=== PATIENT | female | born 1965 | race Hispanic/Latino ===

== ENCOUNTER 2018-03-08 19:15 | Emergency (ER) | payer OTHER, BC ==
--- OUTSIDE RECORDS SUMMARY | 2018-03-08 19:18 | XMS REPORT | Clinical Summary ---
:1965 Author Organization [facility] Address [address] [place] [address] Care Team Providers Name Role Phone Yordan Velasco MD Primary Care Provider Unavailable Allergies Active Allergy Reactions Severity Noted Date Comments Sulfamethoxazole-Trimet Rash Low 01/05/2016 hoprim Shellfish Derived Other (See Comments) 01/05/2016 Noted on allergy testing Current Medications Prescription Sig. Disp. Refills Start Date End Date Status glutamine powder powder Natural powder Active added to water METHYLSULFONYLMETHANE (MSM Take 1 Dose by Active ORAL) mouth daily. Powder- 1 dose daily MULTIVITAMIN ORAL Take 1 Dose by Active mouth daily. 2 tablespoons daily liquid levothyroxine (SYNTHROID, Take 25 mcg by Active LEVOTHROID) 25 MCG tablet mouth every morning. UNABLE TO FIND Take 4 capsules Active by mouth 2 (two) times a day. Tumeric CYANOCOBALAMIN, VITAMIN Inject 1 Dose as Active B-12, (VITAMIN B-12 INJ) directed once a week. B INFANTIS/B ANI/B KOFI/B Take 1 Dose by Active BIFID (PROBIOTIC 4X ORAL) mouth 2 (two) times a day as needed. traMADol (ULTRAM) 50 mg Take 50 mg by Active tablet mouth as needed for moderate pain. Never started taking medication conjugated estrogens Insert 0.5 g into Active (PREMARIN) vaginal cream the vagina daily. Cream application acetaminophen (TYLENOL) 325 Take 325 mg by Active MG tablet mouth every 6 (six) hours as needed for fever. 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 Social History Tobacco Use Types Packs/Day Years Used Date Never Smoker Smokeless Tobacco: Never Used Tobacco Cessation: Counseling Given: No Alcohol Use Drinks/Week oz/Week Comments Yes occasional social Sex Assigned at Date Recorded Not on file Last Filed Vital Signs Not on file Plan of Treatment Health Maintenance Due Date Last Done Comments CERVICAL CANCER SCREENING 1985 BREAST CANCER SCREENING 2014 COLON CANCER SCREENING 2014 SHINGRIX VACCINE (#1) 2014 INFLUENZA VACCINE 01/07/2018 Implants Implanted Type Area Water Taxi Ferry Operator Device Expiration Model / Identifier Date Serial / Lot Matrix Xenform 8x12cm Soft-Tissue Rpr - [id number] Surgical N/A: BSC UROLOGY 05/08/2018 [id number] / Implanted: 01/26/2016 (Quantity not on file) Bone Cement Vagina [id number] / [id number] Results Not on fileafter 03/07/2017 Insurance Payer Benefit Plan / Group Subscriber ID Type Phone Address JOSE G ARAIZA OPEN ACCESS/NETWORK xxxxxxxxxxx HMO [phone] [id number]
[2018-03-08] MEDS ORDERED: METOCLOPRAMIDE 10 MG/2mL INJ ONE (21:03)
[2018-03-08] MEDS ORDERED: FENTANYL CITR 100 MCG/2 ML ONE (21:03)
[2018-03-08] MEDS ORDERED: NA CHLORIDE 0.9% 1,000 ML ONE (21:04)
[2018-03-08] MEDS ORDERED: KETOROLAC 30 MG/ML INJ ONE (21:04)
--- NOTE | 2018-03-08 21:58 | ER ---
Nurse's Notes [facility] Name: Xiomara Russ Age: 52 yrs Sex: Female : 1965 Arrival Date: 03/08/2018 Time: 19:16 Bed 15 Private MD: Yordan Velasco Diagnosis: Headache;Vomiting Presentation: 03/08 19:21 Presenting complaint: Patient states: headache, nausea and vomiting. pt with hx ak1 migraines with Imitrex and Topamax X6 years but stopped due to no relief from meds. Transition of care: patient was not received from another setting of care. Onset of symptoms was March 07, 2018. Risk Assessment: Do you want to hurt yourself or someone else? Patient reports no desire to harm self or others. Initial Sepsis Screen: Does the patient meet any 2 criteria? No. Patient's initial sepsis screen is negative. Does the patient have a suspected source of infection? No. Patient's initial sepsis screen is negative. Care prior to arrival: None. 19:21 Method Of Arrival: Ambulatory ak1 19:21 Acuity: EFFIE 3 ak1 Triage Assessment: 19:23 Headache History: The patient has had previous headaches and this one is similar to ak1 previous episodes. General: Appears in no apparent distress. Behavior is calm, cooperative. Pain: Complains of pain in headache Pain currently is 8 out of 10 on a pain scale. Pain began 1 day ago. Also complains of nausea. EENT: No signs and/or symptoms were reported regarding the EENT system. Neuro: Level of Consciousness is awake, alert, obeys commands, Oriented to person, place, time, situation, Compliance Nurse are equal bilaterally Moves all extremities. Gait is steady, Speech is normal, Facial symmetry appears normal. Cardiovascular: No deficits noted. Respiratory: No deficits noted. GI: Reports nausea, vomiting. : No signs and/or symptoms were reported regarding the genitourinary system. Derm: No signs and/or symptoms reported regarding the dermatologic system. Musculoskeletal: No signs and/or symptoms reported regarding the musculoskeletal system. 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 - Social history:: Smoking status: Patient/guardian denies using tobacco. - Ebola Screening: : No symptoms or risks identified at this time. - Family history:: not pertinent. Screenin:24 Abuse screen: Denies threats or abuse. Denies injuries from another. Nutritional ak1 screening: No deficits noted. Tuberculosis screening: No symptoms or risk factors identified. Fall Risk None identified. Assessment: 19:45 General: Appears in no apparent distress. comfortable, Behavior is calm, cooperative, jb4 appropriate for age. Pain: Complains of pain in right eye, left eye, right bahai, left bahai, left occipital area and right occipital area Pain does not radiate. Pain currently is 7 out of 10 on a pain scale. at worst was 10 out of 10 on a pain scale. Quality of pain is described as dull, throbbing, Pain began 1 day ago. Is intermittent. Neuro: Level of Consciousness is awake, alert, obeys commands, Oriented to person, place, time, situation. Cardiovascular: Denies chest pain, Patient's skin is warm and dry. Respiratory: Airway is patent Respiratory effort is even, unlabored, Respiratory pattern is regular, symmetrical, Denies shortness of breath. GI: Reports nausea, vomiting. : No signs and/or symptoms were reported regarding the genitourinary system. EENT: No signs and/or symptoms were reported regarding the EENT system. Derm: Skin is intact, Skin is pink, warm \T\ dry. Musculoskeletal: Circulation, motion, and sensation intact. 20:45 Reassessment: Patient appears in no apparent distress at this time. Patient and/or jb4 family updated on plan of care and expected duration. Pain level reassessed. Patient is alert, oriented x 3, equal unlabored respirations, skin warm/dry/pink. 21:45 Reassessment: Patient appears in no apparent distress at this time. Patient and/or jb4 family updated on plan of care and expected duration. Pain level reassessed. Patient is alert, oriented x 3, equal unlabored respirations, skin warm/dry/pink. 22:15 Reassessment: waiting for labs to D/C. jb4 22:30 Reassessment: Patient appears in no apparent distress at this time. Patient and/or jb4 family updated on plan of care and expected duration. Pain level reassessed. Patient is alert, oriented x 3, equal unlabored respirations, skin warm/dry/pink. Pt reports feeling better. Patient states symptoms have improved. Vital Signs: 19:21 BP 110 / 62; Pulse 81; Resp 16; Temp 98.2(O); Pulse Ox 98% on R/A; Weight 58.97 kg (R); ak1 Height 5 ft. 2 in. (157.48 cm) (R); Pain 8/10; 20:30 BP 97 / 58; Pulse 74; Resp 18; Pulse Ox 100% on R/A; Pain 8/10; jb4 21:30 BP 95 / 46; Pulse 63; Resp 18; Pulse Ox 98% on R/A; jb4 22:30 BP 102 / 45; Pulse 67; Resp 18; Pulse Ox 100% ; jb4 19:21 Body Mass Index 23.78 (58.97 kg, 157.48 cm) ak1 ED Course: 19:16 Patient arrived in ED. ds1 19:16 Yordan Velasco is Private Physician. ds1 19:22 Triage completed. ak1 19:23 Arm band placed on Patient placed in an exam room, on a stretcher, Patient notified of ak1 wait time. 19:40 Alcides Mojica MD is Attending Physician. [facility] 19:40 Vic Hoskins, RANJANA is Primary Nurse. jb4 19:45 Patient has correct armband on for positive identification. Bed in low position. Call jb4 light in reach. Side rails up X 1. Pulse ox on. NIBP on. 21:57 Jarret Ureña MD is Referral Physician. [facility] 22:47 No provider procedures requiring assistance completed. IV discontinued, intact. jb4 Administered Medications: 20:55 Drug: fentaNYL (PF) 25 mcg Route: IVP; Site: right antecubital; jb4 22:38 Follow up: Response: No adverse reaction; Pain is decreased jb4 20:56 Drug: NS 0.9% 1000 ml Route: IV; Rate: 1 bolus; Site: right antecubital; jb4 22:00 Follow up: Response: No adverse reaction; IV Status: Completed infusion jb4 20:56 Drug: Reglan 10 mg Route: IVP; Site: right antecubital; jb4 22:38 Follow up: Response: No adverse reaction; Pain is decreased jb4 20:57 Drug: TORadol 30 mg Route: IVP; Site: right antecubital; jb4 22:39 Follow up: Response: No adverse reaction; Pain is decreased jb4 Outcome: 21:57 Discharge ordered by . parth 22:47 Discharged to home ambulatory. jb4 22:47 Condition: stable 22:47 Discharge instructions given to patient, family, Instructed on discharge instructions, follow up and referral plans. medication usage, Demonstrated understanding of instructions, follow-up care, medications, Prescriptions given X 2. 22:48 Patient left the ED. jb4 Signatures: Alcides Mojica MD MD cha Sanford, Demi ds1 Mirtha Silverman, RN RN ak1 Vic Hoskins, RN RN jb4
--- NOTE | 2018-03-08 21:58 | EDPHYS ---
Physician Documentation [facility] Name: Xiomara Russ Age: 52 yrs Sex: Female : 1965 Arrival Date: 03/08/2018 Time: 19:16 Bed 15 Private MD: Yordan Velasco ED Physician Alcides Mojica HPI: 03/08 20:32 This 52 yrs old Female presents to ER via Ambulatory with complaints of parth Headache, Vomiting. 20:32 The patient complains of pain to the forehead, left temporal area, right temporal area parth and right side of forehead. The patient describes the headache as pounding, a pressure. Onset: The symptoms/episode began/occurred 2 day(s) ago. Associated signs and symptoms: The patient has no apparent associated signs or symptoms. Severity of symptoms: At its worst the pain was mild, moderate, in the emergency department the pain is unchanged. Headache History: The patient has had previous headaches and this one is similar to previous episodes. The symptoms are alleviated by nothing. the symptoms are aggravated by lights, movement, noise. The patient has not experienced similar symptoms in the past. 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 - Social history:: Smoking status: Patient/guardian denies using tobacco. - Ebola Screening: : No symptoms or risks identified at this time. - Family history:: not pertinent. ROS: 20:32 Constitutional: Negative for fever, chills, and weight loss, Eyes: Negative for injury, parth pain, redness, and discharge, ENT: Negative for injury, pain, and discharge, Neck: Negative for injury, pain, and swelling, Cardiovascular: Negative for chest pain, palpitations, and edema, Respiratory: Negative for shortness of breath, cough, wheezing, and pleuritic chest pain, Abdomen/GI: Negative for abdominal pain, nausea, vomiting, diarrhea, and constipation, Back: Negative for injury and pain, : Negative for injury, bleeding, discharge, and swelling, MS/Extremity: Negative for injury and deformity, Skin: Negative for injury, rash, and discoloration, Psych: Negative for depression, anxiety, suicide ideation, homicidal ideation, and hallucinations, Allergy/Immunology: Negative for hives, rash, and allergies, Endocrine: Negative for neck swelling, polydipsia, polyuria, polyphagia, and marked weight changes, Hematologic/Lymphatic: Negative for swollen nodes, abnormal bleeding, and unusual bruising. 20:32 Neuro: Positive for 20:32 Abdomen/GI: Positive for nausea and vomiting. parth 20:32 Neuro: Positive for headache. Exam: 20:32 Constitutional: This is a well developed, well nourished patient who is awake, alert, parth and in no acute distress. Head/Face: Normocephalic, atraumatic. Eyes: Pupils equal round and reactive to light, extra-ocular motions intact. Lids and lashes normal. Conjunctiva and sclera are non-icteric and not injected. Cornea within normal limits. Periorbital areas with no swelling, redness, or edema. ENT: Nares patent. No nasal discharge, no septal abnormalities noted. Tympanic membranes are normal and external auditory canals are clear. Oropharynx with no redness, swelling, or masses, exudates, or evidence of obstruction, uvula midline. Mucous membranes moist. Neck: Trachea midline, no thyromegaly or masses palpated, and no cervical lymphadenopathy. Supple, full range of motion without nuchal rigidity, or vertebral point tenderness. No Meningismus. Chest/axilla: Normal chest wall appearance and motion. Nontender with no deformity. No lesions are appreciated. Cardiovascular: Regular rate and rhythm with a normal S1 and S2. No gallops, murmurs, or rubs. Normal PMI, no JVD. No pulse deficits. Respiratory: Lungs have equal breath sounds bilaterally, clear to auscultation and percussion. No rales, rhonchi or wheezes noted. No increased work of breathing, no retractions or nasal flaring. Abdomen/GI: Soft, non-tender, with normal bowel sounds. No distension or tympany. No guarding or rebound. No evidence of tenderness throughout. Back: No spinal tenderness. No costovertebral tenderness. Full range of motion. Female : Normal external genitalia. Skin: Warm, dry with normal turgor. Normal color with no rashes, no lesions, and no evidence of cellulitis. MS/ Extremity: Pulses equal, no cyanosis. Neurovascular intact. Full, normal range of motion. Neuro: Awake and alert, GCS 15, oriented to person, place, time, and situation. Cranial nerves II-XII grossly intact. Motor strength 5/5 in all extremities. Sensory grossly intact. Cerebellar exam normal. Normal gait. Psych: Awake, alert, with orientation to person, place and time. Behavior, mood, and affect are within normal limits. 20:32 Neck: ROM/movement: is normal, no acute changes, Meningeal signs: are not present, Kernig's sign is negative, Brudzinski's sign is negative. Vital Signs: 19:21 BP 110 / 62; Pulse 81; Resp 16; Temp 98.2(O); Pulse Ox 98% on R/A; Weight 58.97 kg (R); ak1 Height 5 ft. 2 in. (157.48 cm) (R); Pain 8/10; 20:30 BP 97 / 58; Pulse 74; Resp 18; Pulse Ox 100% on R/A; Pain 8/10; jb4 21:30 BP 95 / 46; Pulse 63; Resp 18; Pulse Ox 98% on R/A; jb4 22:30 BP 102 / 45; Pulse 67; Resp 18; Pulse Ox 100% ; jb4 19:21 Body Mass Index 23.78 (58.97 kg, 157.48 cm) ak1 MDM: 19:40 Patient medically screened. [facility] 20:34 Data reviewed: vital signs, nurses notes, lab test result(s), EKG, radiologic studies, [facility] CT scan, plain films. 03/08 20:32 Order name: CBC with Diff [facility] 03/08 20:32 Order name: Comprehensive Metabolic Panel; Complete Time: 22:23 [facility] 03/08 21:43 Order name: Urine Dipstick--Ancillary (enter results); Complete Time: 22:23 ms 03/08 22:19 Order name: CBC Smear Scan [facility] 03/08 20:32 Order name: Urine Dipstick-Ancillary (obtain specimen); Complete Time: 21:12 [facility] Administered Medications: 20:55 Drug: fentaNYL (PF) 25 mcg Route: IVP; Site: right antecubital; jb4 22:38 Follow up: Response: No adverse reaction; Pain is decreased jb4 20:56 Drug: NS 0.9% 1000 ml Route: IV; Rate: 1 bolus; Site: right antecubital; jb4 22:00 Follow up: Response: No adverse reaction; IV Status: Completed infusion jb4 20:56 Drug: Reglan 10 mg Route: IVP; Site: right antecubital; jb4 22:38 Follow up: Response: No adverse reaction; Pain is decreased jb4 20:57 Drug: TORadol 30 mg Route: IVP; Site: right antecubital; jb4 22:39 Follow up: Response: No adverse reaction; Pain is decreased jb4 Disposition: 03/08/18 21:57 Discharged to Home. Impression: Headache, Vomiting. - Condition is Stable. - Discharge Instructions: General Headache Without Cause, Migraine Headache, Nausea and Vomiting, Adult, Nausea and Vomiting, Adult, [id number], Migraine Headache, [id number]-dc-[id number], General Headache Without Cause, Dnnw-pr-[id number]. - Prescriptions for Fioricet with Codeine 50- 325-40-30 mg Oral capsule - take 1 capsule by ORAL route every 4 hours as needed not to exceed 6 capsules per 24hrs; 26 capsule. Zofran 4 mg Oral Tablet - take 1 tablet by ORAL route every 12 hours As needed; 20 tablet. - Medication Reconciliation Form, Thank You Letter, Antibiotic Education, Prescription Opioid Use form. - Follow up: Private Physician; When: 2 - 3 days; Reason: Recheck today's complaints, Continuance of care, Re-evaluation by your physician. Follow up: Jarret Ureña; When: 2 - 3 days; Reason: Recheck today's complaints, Re-evaluation by your physician. - Problem is new. - Symptoms have improved. Signatures: Dispatcher [employer] EDMS Alcides Mojica MD MD cha Krenek, Amber RN RN ak1 Vic Hoskins, RN RN jb4 Corrections: (The following items were deleted from the chart) 22:48 21:57 03/08/2018 21:57 Discharged to Home. Impression: Headache; Vomiting. Condition is jb4 Stable. Discharge Instructions: General Headache Without Cause, Migraine Headache, Nausea and Vomiting, Adult, Nausea and Vomiting, Adult, [id number], Migraine Headache, Xkom-pm-Auoc, General Headache Without Cause, Baze-nh-Zpbk. Prescriptions for Fioricet with Codeine 95-501-34-30 mg Oral capsule - take 1 capsule by ORAL route every 4 hours as needed not to exceed 6 capsules per 24hrs; 26 capsule, Zofran 4 mg Oral Tablet - take 1 tablet by ORAL route every 12 hours As needed; 20 tablet. and Forms are Medication Reconciliation Form, Thank You Letter, Antibiotic Education, Prescription Opioid Use. Follow up: Private Physician; When: 2 - 3 days; Reason: Recheck today's complaints, Continuance of care, Re-evaluation by your physician. Follow up: Jarret Ureña; When: 2 - 3 days; Reason: Recheck today's complaints, Re-evaluation by your physician. Problem is new. Symptoms have improved. parth
[2018-03-08 22:11] LABS: Urine Blood 2+ (NEG); Urine Glucose NEGATIVE (NEG); Urine Protein NEGATIVE (NEG); Urine Specific Gravity 1.015 (1.005-1.030); Urine pH 6.5 (5.0-7.0)
[2018-03-08 22:14] LABS: Absolute Monocytes 0.4 K/uL (0.1-1.3); Absolute Neutrophil 1.4 K/uL (1.8-8.0); Basophils % 0.6 % (0-1.3); Eosinophils % 2.1 % (0-4.4); Hematocrit 32.6 % (36.0-45.0); Lymphocytes % 35.4 % (15.3-44.8); MCH 31.9 pg (27.0-35.0); MCV 89.7 fL (80-100); MPV 8.2 fL (7.6-11.3); Monocytes % 15.1 % (3.3-12.3); RBC Red Blood Cell Count 3.64 M/uL (3.86-4.86)
[2018-03-08 22:23] LABS: Albumin 3.3 g/dL (3.4-5.0); Bilirubin Total 0.4 mg/dL (0.2-1.0); Potassium 3.6 mmol/L (3.5-5.1); Protein, Total 6.7 g/dL (6.4-8.2)
[2018-03-08 22:59] VITALS: TEMP 98.2
[2018-03-08 23:04] VITALS: BP 102/45; O2SAT 100
[2018-03-08 23:13] LABS: Blood Morphology Comment NOT SEEN (NOT SEEN); Platelet Estimate ADEQ; Urine White Blood Cell Casts OK
== END 2018-03-08 22:48 | disposition home or self-care (01) ==
LOC: ER 19:15
DX: R11.10 Vomiting, unspecified (principal); Z88.1 Allergy status to other antibiotic agents
CPT/HCPCS: 36415; 80053; 81003; 85025; 96361; 96374; 96375; 99283; J2765; J3010; J7030

== ENCOUNTER 2018-07-16 14:35 | Emergency (ER) | payer BC, OTHER ==
--- OUTSIDE RECORDS SUMMARY | 2018-07-16 14:38 | XMS REPORT | Clinical Summary ---
:1965 Author Organization [facility] Address [address] [place] [address] Care Team Providers Name Role Phone Yordan Velasco MD Primary Care Provider Unavailable Allergies Active Allergy Reactions Severity Noted Date Comments Sulfamethoxazole-Trimet Rash Low 01/05/2016 hoprim Shellfish Derived Other (See Comments) 01/05/2016 Noted on allergy testing Medications Medication Sig Dispensed Refills Start Date End Date Status glutamine powder powder Natural powder 0 Active added to water METHYLSULFONYLMETHANE (MSM Take 1 Dose by 0 Active ORAL) mouth daily. Powder- 1 dose daily MULTIVITAMIN ORAL Take 1 Dose by 0 Active mouth daily. 2 tablespoons daily liquid levothyroxine (SYNTHROID, Take 25 mcg by 0 Active LEVOTHROID) 25 MCG tablet mouth every morning. UNABLE TO FIND Take 4 capsules 0 Active by mouth 2 (two) times a day. Tumeric CYANOCOBALAMIN, VITAMIN Inject 1 Dose as 0 Active B-12, (VITAMIN B-12 INJ) directed once a week. B INFANTIS/B ANI/B KOFI/B Take 1 Dose by 0 Active BIFID (PROBIOTIC 4X ORAL) mouth 2 (two) times a day as needed. traMADol (ULTRAM) 50 mg Take 50 mg by 0 Active tablet mouth as needed for moderate pain. Never started taking medication conjugated estrogens Insert 0.5 g 0 Active (PREMARIN) vaginal cream into the vagina daily. Cream application acetaminophen (TYLENOL) Take 325 mg by 0 Active 325 MG tablet mouth every 6 (six) hours [...] Assigned at Date Recorded Not on file Job Start Date Occupation Industry Not on file Not on file Not on file Travel History Travel Start Travel End No recent travel history available. Last Filed Vital Signs Not on file Plan of Treatment Health Maintenance Due Date Last Done Comments CERVICAL CANCER SCREENING 1985 BREAST CANCER SCREENING 2014 COLON CANCER SCREENING 2014 SHINGLES VACCINES (1 of 2) 2014 INFLUENZA VACCINE 01/07/2018 Implants Implanted Type Area Card Writer Hand Device Shelf Model / Identifier Expiration Serial / Date Lot Matrix Xenform 8x12cm Soft-Tissue Rpr - [id number] Surgical N/A: BSC UROLOGY 05/08/2018 [id number] / Implanted: 01/26/2016 (Quantity not on file) Bone Cement Vagina [id number] / [id number] Results Not on fileafter 07/15/2017 Insurance Payer Benefit Plan / Group Subscriber ID Type Phone Address [employer] OPEN ACCESS/NETWORK xxxxxxxxxxx HMO Advance Directives Patient has advance care planning documents on file. For more information, please contact:Ramu [address]ello[address] [place] [address]
[2018-07-16] MEDS ORDERED: METOCLOPRAMIDE 10 MG/2mL INJ ONE (16:08)
[2018-07-16] MEDS ORDERED: NA CHLORIDE 0.9% 1,000 ML ONE (16:08)
[2018-07-16] MEDS ORDERED: DIPHENHYDRAMINE 50 MG/ML VIAL ONE (16:08)
[2018-07-16] MEDS ORDERED: KETOROLAC 30 MG/ML INJ ONE (16:08)
--- NOTE | 2018-07-16 17:33 | EDPHYS ---
Physician Documentation [facility] Name: Xiomara Russ Age: 53 yrs Sex: Female : 1965 Arrival Date: 07/16/2018 Time: 14:36 Bed 18 Private MD: Yordan Velasco ED Physician Jared Busby HPI: 07/16 17:30 This 53 yrs old Female presents to ER via Ambulatory with complaints of kb Headache. 17:30 The patient complains of pain to the right mandaen and left mandaen. The patient kb describes the headache as constant. Onset: The symptoms/episode began/occurred 3 day(s) ago. Associated signs and symptoms: Pertinent positives: nausea, Photophobia. Severity of symptoms: At its worst the pain was moderate, in the emergency department the pain is unchanged. Headache History: The patient has had previous headaches and this one is similar to previous episodes. The symptoms are alleviated by nothing. the symptoms are aggravated by lights, movement. The patient has experienced similar episodes in the past, several times. The patient has not recently seen a physician. 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 - Social history:: Smoking status: Patient/guardian denies using tobacco, Patient/guardian denies using alcohol. - Ebola Screening: : Patient negative for fever greater than or equal to 101.5 degrees Fahrenheit, and additional compatible Ebola Virus Disease symptoms Patient denies exposure to infectious person Patient denies travel to an Ebola-affected area in the 21 days before illness onset. ROS: 17:29 Constitutional: Negative for fever, chills, and weight loss, Eyes: Negative for injury, kb pain, redness, and discharge, ENT: Negative for injury, pain, and discharge, Neck: Negative for injury, pain, and swelling, Cardiovascular: Negative for chest pain, palpitations, and edema, Respiratory: Negative for shortness of breath, cough, wheezing, and pleuritic chest pain, Abdomen/GI: Negative for abdominal pain, nausea, vomiting, diarrhea, and constipation, Back: Negative for injury and pain, MS/Extremity: Negative for injury and deformity, Skin: Negative for injury, rash, and discoloration. 17:29 Neuro: Positive for headache. Exam: 17:29 Constitutional: This is a well developed, well nourished patient who is awake, alert, kb and in no acute distress. Head/Face: Normocephalic, atraumatic. Chest/axilla: Normal chest wall appearance and motion. Nontender with no deformity. No lesions are appreciated. Cardiovascular: Regular rate and rhythm with a normal S1 and S2. No gallops, murmurs, or rubs. Normal PMI, no JVD. No pulse deficits. Respiratory: Lungs have equal breath sounds bilaterally, clear to auscultation and percussion. No rales, rhonchi or wheezes noted. No increased work of breathing, no retractions or nasal flaring. Abdomen/GI: Soft, non-tender, with normal bowel sounds. No distension or tympany. No guarding or rebound. No evidence of tenderness throughout. Skin: Warm, dry with normal turgor. Normal color with no rashes, no lesions, and no evidence of cellulitis. MS/ Extremity: Pulses equal, no cyanosis. Neurovascular intact. Full, normal range of motion. Neuro: Awake and alert, GCS 15, oriented to person, place, time, and situation. Cranial nerves II-XII grossly intact. Motor strength 5/5 in all extremities. Sensory grossly intact. Cerebellar exam normal. Normal gait. Vital Signs: 14:44 BP 110 / 62; Pulse 72; Resp 18; Temp 97.7(TE); Pulse Ox 100% on R/A; Weight 58.97 kg; Height 5 ft. 2 in. (157.48 cm); Pain 9/10; 15:50 BP 108 / 48; Pulse 71; Resp 14; Pulse Ox 100% ; bp 14:44 Body Mass Index 23.78 (58.97 kg, 157.48 cm) Vladislav Coma Score: 17:30 Eye Response: spontaneous(4). Verbal Response: oriented(5). Motor Response: obeys kb commands(6). Total: 15. MDM: 15:49 Patient medically screened. kb 17:30 Data reviewed: vital signs, nurses notes. Data interpreted: Pulse oximetry: on room air kb is 100 %. Interpretation: normal. Counseling: I had a detailed discussion with the patient and/or guardian regarding: the historical points, exam findings, and any diagnostic results supporting the discharge/admit diagnosis, the need for outpatient follow up, a family practitioner, to return to the emergency department if symptoms worsen or persist or if there are any questions or concerns that arise at home. Response to treatment: the patient's symptoms have resolved after treatment. 07/16 15:53 Order name: IV Start; Complete Time: 16:16 kb Administered Medications: 16:00 Drug: NS 0.9% 1000 ml Route: IV; Rate: 1000 ml; Site: right antecubital; bp 17:30 Follow up: Response: No adverse reaction; IV Status: Completed infusion; IV Intake: bp 1000ml 16:00 Drug: TORadol 30 mg Route: IVP; Site: right antecubital; bp 17:30 Follow up: Response: No adverse reaction; Pain is decreased bp 16:00 Drug: Benadryl 12.5 mg Route: IVP; Site: right antecubital; bp 17:30 Follow up: Response: Pain is decreased bp 16:00 Drug: Reglan 10 mg Route: IVP; Site: right antecubital; bp 17:30 Follow up: Response: No adverse reaction; Pain is decreased bp Disposition: 07/17 12:54 Co-signature as Attending Physician, Jared Busby MD I agree with the assessment and wa plan of care. Disposition: 07/16/18 17:31 Discharged to Home. Impression: Migraine. - Condition is Stable. - Discharge Instructions: Migraine Headache, [id number]. - Medication Reconciliation Form, Thank You Letter, Antibiotic Education, Prescription Opioid Use form. - Follow up: Emergency Department; When: As needed; Reason: Worsening of condition. Follow up: Private Physician; When: 2 - 3 days; Reason: Recheck today's complaints, Continuance of care, Re-evaluation by your physician. Signatures: [place], MISTIC NUCLEAR CONTROL OPERATOR-Tad Aquino RN RN hj Appiah, William, MD MD wa Peltier, Brian, RN RN bp Corrections: (The following items were deleted from the chart) 07/16 18:04 17:31 07/16/2018 17:31 Discharged to Home. Impression: Migraine. Condition is Stable. bp Forms are Medication Reconciliation Form, Thank You Letter, Antibiotic Education, Prescription Opioid Use. Follow up: Emergency Department; When: As needed; Reason: Worsening of condition. Follow up: Private Physician; When: 2 - 3 days; Reason: Recheck today's complaints, Continuance of care, Re-evaluation by your physician. kb
--- NOTE | 2018-07-16 17:33 | ER ---
Nurse's Notes [facility] Name: Xiomara Russ Age: 53 yrs Sex: Female : 1965 Arrival Date: 07/16/2018 Time: 14:36 Bed 18 Private MD: Yordan Velasco Diagnosis: Migraine Presentation: 07/16 14:41 Presenting complaint: Patient states: hx of migraine; this episode started a couple of hj days ago, reports N/V; denies tingling and numbness; pain is 9/10; tylenol codeine taken around 9:30 am;. Transition of care: patient was not received from another setting of care. Onset of symptoms was July 16, 2018. Risk Assessment: Do you want to hurt yourself or someone else? Patient reports no desire to harm self or others. Initial Sepsis Screen: Does the patient meet any 2 criteria? No. Patient's initial sepsis screen is negative. Does the patient have a suspected source of infection? No. Patient's initial sepsis screen is negative. Care prior to arrival: None. 14:41 Method Of Arrival: Ambulatory 14:41 Acuity: EFFIE 3 hj Triage Assessment: 14:43 Headache History: Denies prior headaches. General: Appears in no apparent distress. hj uncomfortable, Behavior is calm, cooperative, appropriate for age. Pain: Complains of pain in head Pain currently is 9 out of 10 on a pain scale. Pain began Also complains of nausea. Neuro: Level of Consciousness is awake, alert, obeys commands, Oriented to person, place, time, situation, Appropriate for age. 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 - Social history:: Smoking status: Patient/guardian denies using tobacco, Patient/guardian denies using alcohol. - Ebola Screening: : Patient negative for fever greater than or equal to 101.5 degrees Fahrenheit, and additional compatible Ebola Virus Disease symptoms Patient denies exposure to infectious person Patient denies travel to an Ebola-affected area in the 21 days before illness onset. Screenin:44 Abuse screen: Denies threats or abuse. Denies injuries from another. Nutritional hj screening: No deficits noted. Tuberculosis screening: No symptoms or risk factors identified. Fall Risk None identified. Assessment: 15:43 General: Appears in no apparent distress. uncomfortable, Behavior is cooperative, bp appropriate for age, anxious. Pain: Complains of pain in head. Neuro: Level of Consciousness is awake, alert, obeys commands, Oriented to person, place, time, situation, Appropriate for age. Cardiovascular: No deficits noted. Respiratory: Airway is patent Respiratory effort is even, unlabored, Respiratory pattern is regular, symmetrical. GI: No signs and/or symptoms were reported involving the gastrointestinal system. : No signs and/or symptoms were reported regarding the genitourinary system. EENT: No deficits noted. Derm: No deficits noted. Musculoskeletal: Circulation, motion, and sensation intact. Range of motion: intact in all extremities. 18:03 Reassessment: PT D/C HOME AMBULATORY WITH FAMILY, DX WITH MIGRAINE. bp Vital Signs: 14:44 BP 110 / 62; Pulse 72; Resp 18; Temp 97.7(TE); Pulse Ox 100% on R/A; Weight 58.97 kg; hj Height 5 ft. 2 in. (157.48 cm); Pain 9/10; 15:50 BP 108 / 48; Pulse 71; Resp 14; Pulse Ox 100% ; bp 14:44 Body Mass Index 23.78 (58.97 kg, 157.48 cm) [place] Coma Score: 17:30 Eye Response: spontaneous(4). Verbal Response: oriented(5). Motor Response: obeys kb commands(6). Total: 15. ED Course: 14:36 Patient arrived in ED. ag5 14:36 Yordan Velasco is Private Physician. ag5 14:42 Triage completed. hj 14:44 Arm band placed on right wrist. hj 14:45 Patient has correct armband on for positive identification. Bed in low position. Call hj light in reach. Side rails up X 1. Adult w/ patient. 15:43 Payam Fierro, RANJANA is Primary Nurse. bp 15:49 [place] FNP-C is PHCP. kb 15:49 Jared Busby MD is Attending Physician. kb 16:00 Inserted saline lock: 20 gauge in right antecubital area, using aseptic technique. bp 18:03 No provider procedures requiring assistance completed. IV discontinued, intact, bp bleeding controlled, No redness/swelling at site. Pressure dressing applied. Administered Medications: 16:00 Drug: NS 0.9% 1000 ml Route: IV; Rate: 1000 ml; Site: right antecubital; bp 17:30 Follow up: Response: No adverse reaction; IV Status: Completed infusion; IV Intake: bp 1000ml 16:00 Drug: TORadol 30 mg Route: IVP; Site: right antecubital; bp 17:30 Follow up: Response: No adverse reaction; Pain is decreased bp 16:00 Drug: Benadryl 12.5 mg Route: IVP; Site: right antecubital; bp 17:30 Follow up: Response: Pain is decreased bp 16:00 Drug: Reglan 10 mg Route: IVP; Site: right antecubital; bp 17:30 Follow up: Response: No adverse reaction; Pain is decreased bp Intake: 17:30 IV: 1000ml; Total: 1000ml. bp Outcome: 17:31 Discharge ordered by . kb 18:03 Discharged to home ambulatory, with family. bp 18:03 Condition: stable 18:03 Discharge instructions given to patient, Instructed on discharge instructions, follow up and referral plans. Demonstrated understanding of instructions, follow-up care. 18:04 Patient left the ED. bp Signatures: [place] FNP-C RESIDUE FURNACE OPERATOR-CkTad Palacios RN RN hj Peltier, Brian, RN RN bp Gaskin, Ajare ag5 Corrections: (The following items were deleted from the chart) 14:45 14:44 Pulse 72bpm; Resp 18bpm; Pulse Ox 100% RA; Temp 97.7F Temporal; 58.97 kg; Height hj 5 ft. 2 in.; BMI: 23.7; Pain 9/10; hj
[2018-07-16 18:13] VITALS: TEMP 97.7; O2SAT 100
[2018-07-16 18:14] VITALS: BP 108/48
== END 2018-07-16 18:04 | disposition home or self-care (01) ==
LOC: ER 14:35
DX: G43.909 Migraine, unspecified, not intractable, without status migrainosus (principal)
CPT/HCPCS: 96361; 96374; 96375; 99283; J2765; J7030

== ENCOUNTER 2018-08-25 16:02 | Emergency (ER) | payer BC ==
--- OUTSIDE RECORDS SUMMARY | 2018-08-25 16:38 | XMS REPORT | Clinical Summary ---
:1965 Author Organization [facility] Address [address] [place] [address] Care Team Providers Name Role Phone Yordan [...] 2014 COLON CANCER SCREENING 2014 SHINGLES VACCINES (#1) 2014 INFLUENZA VACCINE 01/07/2018 Implants Implanted Type Area Traffic Sign Supervisor Device Shelf Model / Identifier Expiration Serial / Date Lot Matrix Xenform 8x12cm Soft-Tissue Rpr - [id number] Surgical N/A: BSC UROLOGY 05/08/2018 [id number] / Implanted: 01/26/2016 (Quantity not on file) Bone Cement Vagina [id number] / [id number] Results Not on fileafter 08/24/2017 Insurance Payer Benefit Plan / Group Subscriber ID Type Phone Address [employer] CIGNA OPEN ACCESS/NETWORK xxxxxxxxxxx HMO ([place]) [place] [address] Advance Directives Patient has advance care planning documents on file. For more information, please contact:Ramu [id number] [place] [address]
[2018-08-25 17:29] LABS: Urine RBC NONE SEEN /HPF (NONE SEEN)
[2018-08-25 17:30] LABS: Urine Amorphous Sediment TRACE /HPF (NONE SEEN); Urine Bacteria <20 /HPF (<20); Urine Culture Reflex Order REFLEXED; Urine Yeast PRESENT (NONE SEEN)
[2018-08-25 17:39] LABS: Urine Blood 1+ (NEG); Urine Glucose NEGATIVE (NEG); Urine Protein NEGATIVE (NEG); Urine pH 8.5 (5.0-7.0)
--- NOTE | 2018-08-25 17:39 | RAD REPORT ---
EXAM DESCRIPTION: US - Renal Ultrasound-Complete - 08/25/2018 5:28 pm CLINICAL HISTORY: . Hematuria COMPARISON: None. FINDINGS: The right kidney measures 9 cm with a normal echotexture. The left kidney measures 9 cm with a normal echotexture. Hydronephrosis is not seen. No gross abnormality of bladder noted IMPRESSION: Unremarkable renal ultrasound.
[2018-08-25 17:48] LABS: Absolute Lymphocytes (CBC) 1.8 K/uL (0.7-4.9); Absolute Monocytes 0.4 K/uL (0.1-1.3); Absolute Neutrophil 1.6 K/uL (1.8-8.0); Basophils % 2.1 % (0-1.3); Eosinophils % 1.5 % (0-4.4); Hematocrit 35.6 % (36.0-45.0); Lymphocytes % 45.5 % (15.3-44.8); MPV 8.3 fL (7.6-11.3); Monocytes % 9.5 % (3.3-12.3); RBC Red Blood Cell Count 3.92 M/uL (3.86-4.86)
[2018-08-25 18:06] LABS: Potassium 4.3 mmol/L (3.5-5.1)
--- NOTE | 2018-08-25 18:11 | RAD REPORT ---
EXAM DESCRIPTION: RAD - Abdomen 1 View (KUB) - 08/25/2018 5:58 pm CLINICAL HISTORY: Abdomen pain. FINDINGS: The bowel gas pattern is unremarkable. A large amount stool is present throughout the colon. No abnormal calcification seen
--- NOTE | 2018-08-25 18:28 | EDPHYS ---
Physician Documentation [facility] Name: Xiomara Russ Age: 53 yrs Sex: Female : 1965 Arrival Date: 08/25/2018 Time: 16:03 Bed 25 Private MD: Yordan Velasco ED Physician Edita Cohen HPI: 08/25 16:45 This 53 yrs old Female presents to ER via Ambulatory with complaints of cp Possible Kidney Stone. 16:45 The patient presents with pain that is acute, with no known mechanism of injury. The cp symptoms are located in the low back area. 16:45 The pain radiates to the lower abdomen. cp 16:45 Onset: The symptoms/episode began/occurred 2 day(s) ago. cp 16:45 Associated signs and symptoms: Pertinent negatives: constipation, dysuria, fever, cp hematuria, incontinence, numbness, weakness. Severity of symptoms: in the emergency department the symptoms have improved. 16:45 Patient concerned about possible kidney stone causing pain. 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 - Social history:: Smoking status: unknown. - Ebola Screening: : No symptoms or risks identified at this time. ROS: 17:00 Constitutional: Negative for body aches, chills, fever, poor PO intake. cp 17:00 Eyes: Negative for injury, pain, redness, and discharge. cp 17:00 ENT: Negative for drainage from ear(s), ear pain, sore throat, difficulty swallowing, difficulty handling secretions. 17:00 Cardiovascular: Negative for chest pain, palpitations. 17:00 Respiratory: Negative for cough, shortness of breath, wheezing. 17:00 Abdomen/GI: Positive for abdominal pain, of the right lower quadrant and left lower quadrant, Negative for vomiting, diarrhea, constipation, black/tarry stool, rectal bleeding. 17:00 Back: Positive for pain at rest, of the low back area, Negative for injury or acute deformity, decreased range of motion. 17:00 : Negative for urinary symptoms, vaginal bleeding, vaginal discharge. 17:00 Skin: Negative for cellulitis, rash. 17:00 Neuro: Negative for numbness, weakness. 17:00 All other systems are negative. Exam: 17:05 Constitutional: The patient appears in no acute distress, alert, awake, cp non-diaphoretic, non-toxic, well developed, well nourished. 17:05 Head/Face: Normocephalic, atraumatic. cp 17:05 Eyes: Periorbital structures: appear normal, Conjunctiva: normal, no exudate, no injection, Sclera: no appreciated abnormality, Lids and lashes: appear normal, bilaterally. 17:05 ENT: External ear(s): are unremarkable, Nose: is normal, Mouth: Lips: moist, Oral mucosa: pink and intact, moist, Posterior pharynx: is normal, airway is patent, no erythema, no exudate. 17:05 Neck: ROM/movement: is normal, is supple, without pain, no range of motions limitations, no meningismus, no nuchal rigidity. 17:05 Chest/axilla: Inspection: normal, Palpation: is normal, no crepitus, no tenderness. 17:05 Cardiovascular: Rate: normal, Rhythm: regular. 17:05 Respiratory: the patient does not display signs of respiratory distress, Respirations: normal, no use of accessory muscles, Breath sounds: are clear throughout, no decreased breath sounds, no stridor, no wheezing. 17:05 Abdomen/GI: Inspection: abdomen appears normal, Bowel sounds: active, all quadrants, Palpation: soft, in all quadrants, mild abdominal tenderness, in the right lower quadrant and left lower quadrant, rebound tenderness, is not appreciated, voluntary guarding, is not appreciated, involuntary guarding, is not appreciated. 17:05 Back: pain, that is mild, of the low back area, ROM is normal, CVA tenderness, is absent, is noted bilaterally. 17:05 Musculoskeletal/extremity: Exam is negative for decreased range of motion, deformity, injury. 17:05 Skin: cellulitis, is not appreciated, no rash present. 17:05 Neuro: Orientation: to person, place \T\ time. Mentation: is normal, Motor: moves all fours, strength is normal, Sensation: is normal, Gait: is steady, at a normal pace, without difficulty. Vital Signs: 16:18 BP 105 / 61; Pulse 86; Resp 18; Temp 98.3; Pulse Ox 100% ; Weight 58.97 kg; Height 5 sv ft. 2 in. (157.48 cm); Pain 7/10; 18:47 BP 110 / 70; Pulse 78; Resp 18; Pulse Ox 100% on R/A; Pain 0/10; mg2 16:18 Body Mass Index 23.78 (58.97 kg, 157.48 cm) sv MDM: 16:28 Patient medically screened. cp 17:00 Differential diagnosis: strain, sciatica, UTI, kidney stone. cp 18:25 Data reviewed: vital signs, nurses notes, lab test result(s), radiologic studies, plain cp films, ultrasound. 18:25 Test interpretation: by ED physician or midlevel provider: plain radiologic studies. cp Counseling: I had a detailed discussion with the patient and/or guardian regarding: the historical points, exam findings, and any diagnostic results supporting the discharge/admit diagnosis, lab results, radiology results, to return to the emergency department if symptoms worsen or persist or if there are any questions or concerns that arise at home. ED course: VSS. Discussed results of labs and radiology studies that were negative for acute findings. Will treat for musculoskeletal pain and discharge to home for continued monitoring. 08/25 16:37 Order name: Urine Microscopic Only; Complete Time: 17:33 cp 08/25 17:33 Interpretation: Normal except: YEAST PRESENT. cp 08/25 16:53 Order name: Urine Dipstick--Ancillary (enter results); Complete Time: 18:20 bd 08/25 16:55 Order name: Urine --Ancillary (enter results); Complete Time: 18:20 bd 08/25 17:01 Order name: BMP; Complete Time: 18:20 cp 08/25 17:01 Order name: CBC with Diff; Complete Time: 18:20 cp 08/25 17:31 Order name: Urine Culture EDMS 08/25 16:37 Order name: Urine Dipstick-Ancillary (obtain specimen); Complete Time: 16:43 cp 08/25 17:01 Order name: XRAY Abdomen 1 View (KUB); Complete Time: 18:20 cp 08/25 17:01 Order name: US Rp Exam Complete; Complete Time: 18:20 cp Administered Medications: No medications were administered Disposition: 20:42 Co-signature as Attending Physician, Edita Cohen MD. ma2 Disposition: 08/25/18 18:28 Discharged to Home. Impression: Low back pain, Lower abdominal pain, unspecified. - Condition is Stable. - Discharge Instructions: Abdominal Pain, Adult, Back Pain, Adult. - Prescriptions for Ibuprofen 800 mg Oral Tablet - take 1 tablet by ORAL route every 8 hours As needed take with food; 30 tablet. - Medication Reconciliation Form, Thank You Letter, Antibiotic Education, Prescription Opioid Use form. - Follow up: Private Physician; When: 2 - 3 days; Reason: Recheck today's complaints. - Problem is new. - Symptoms have improved. Signatures: Dispatcher [employer] Judith Cancino RN RN sv Alcides Carter PA PA Edita Zee MD MD ma2 Homar Monroe RN RN mg2 Corrections: (The following items were deleted from the chart) 18:48 18:28 08/25/2018 18:28 Discharged to Home. Impression: Low back pain; Lower abdominal mg2 pain, unspecified. Condition is Stable. Forms are Medication Reconciliation Form, Thank You Letter, Antibiotic Education, Prescription Opioid Use. Follow up: Private Physician; When: 2 - 3 days; Reason: Recheck today's complaints. Problem is new. Symptoms have improved. cp
--- NOTE | 2018-08-25 18:28 | ER ---
Nurse's Notes [facility] Name: Xiomara Russ Age: 53 yrs Sex: Female : 1965 Arrival Date: 08/25/2018 Time: 16:03 Bed 25 Private MD: Yordan Velasco Diagnosis: Low back pain;Lower abdominal pain, unspecified Presentation: 08/25 16:17 Presenting complaint: Patient states: low back pain (burning)that radiates to the sv suprapubic area x 2 days. Transition of care: patient was not received from another setting of care. Onset of symptoms was August 23, 2018. Care prior to arrival: None. 16:17 Method Of Arrival: Ambulatory sv 16:17 Acuity: EFFIE 3 sv 16:45 Risk Assessment: Do you want to hurt yourself or someone else? Patient reports no mg2 desire to harm self or others. Initial Sepsis Screen: Does the patient meet any 2 criteria? No. Patient's initial sepsis screen is negative. Does the patient have a suspected source of infection? No. Patient's initial sepsis screen is negative. Triage Assessment: 16:17 General: Appears in no apparent distress. uncomfortable, slender, well developed, sv Behavior is calm, cooperative, appropriate for age. Pain: Complains of pain in mid back area, umbilical area and suprapubic area Pain currently is 7 out of 10 on a pain scale. Quality of pain is described as burning. Neuro: Level of Consciousness is awake, alert, obeys commands, Oriented to person, place, time, situation, Gait is steady. Respiratory: Respiratory effort is even, unlabored, Respiratory pattern is regular, symmetrical. [employer]ER: 16:45 LMP N/A - Hysterectomy mg2 Historical: - Allergies: 16:18 No Known Allergies; sv - PMHx: 16:18 Kidney stones; Migraines; sv - PSHx: 16:18 Hysterectomy; Tonsillectomy; Bladder suspension; tummy tuck; sv - Immunization history:: Flu vaccine status is unknown. - Social history:: Smoking status: unknown. - Ebola Screening: : No symptoms or risks identified at this time. Screenin:44 Abuse screen: Denies threats or abuse. Denies injuries from another. Nutritional mg2 screening: No deficits noted. Tuberculosis screening: No symptoms or risk factors identified. 16:44 Fall Risk None identified. mg2 Assessment: 16:43 General: Appears in no apparent distress. comfortable, Behavior is calm, cooperative. mg2 Pain: Complains of pain in abdomen and umbilical area Pain radiates to mid back area Pain currently is 3 out of 10 on a pain scale. Quality of pain is described as aching, Pain began gradually, Is intermittent. Neuro: Level of Consciousness is awake, alert, obeys commands, Oriented to person, place, time, situation. Cardiovascular: Capillary refill < 3 seconds Patient's skin is warm and dry. Respiratory: Airway is patent Respiratory effort is even, unlabored, Respiratory pattern is regular, symmetrical. GI: Bowel sounds present X 4 quads. Abd is soft and non tender. : Urine is clear. EENT: No signs and/or symptoms were reported regarding the EENT system. Derm: Skin is intact, is healthy with good turgor, Skin is pink, warm \T\ dry. normal. Musculoskeletal: Circulation, motion, and sensation intact. Capillary refill < 3 seconds. Vital Signs: 16:18 BP 105 / 61; Pulse 86; Resp 18; Temp 98.3; Pulse Ox 100% ; Weight 58.97 kg; Height 5 sv ft. 2 in. (157.48 cm); Pain 7/10; 18:47 BP 110 / 70; Pulse 78; Resp 18; Pulse Ox 100% on R/A; Pain 0/10; mg2 16:18 Body Mass Index 23.78 (58.97 kg, 157.48 cm) sv ED Course: 16:03 Patient arrived in ED. mr 16:03 Yordan Velasco is Private Physician. mr 16:18 Triage completed. sv 16:19 Arm band placed on. sv 16:28 Alcides Carter PA is PHCP. cp 16:28 Edita Cohen MD is Attending Physician. cp 16:42 Homar Monroe, RANJANA is Primary Nurse. mg2 16:45 Patient has correct armband on for positive identification. mg2 16:45 No provider procedures requiring assistance completed. mg2 17:29 US Rp Exam Complete In Process Unspecified. EDMS 17:58 XRAY Abdomen 1 View (KUB) In Process Unspecified. EDMS 18:00 Inserted saline lock: 22 gauge in left antecubital area, using aseptic technique. Blood mg2 collected. 18:47 IV discontinued, intact, bleeding controlled, No redness/swelling at site. Pressure mg2 dressing applied. Administered Medications: No medications were administered Outcome: 18:28 Discharge ordered by . cp 18:47 Discharged to home ambulatory. mg2 18:47 Condition: stable 18:47 Discharge instructions given to patient, Instructed on discharge instructions, follow up and referral plans. medication usage, Demonstrated understanding of instructions, follow-up care, medications, Prescriptions given X 1. 18:48 Patient left the ED. mg2 Signatures: Dispatcher [employer] EDJudith Andrews RN RN MaldonadoSteffi Corey, PA PA Homar Edmondson RN RN mg2 Corrections: (The following items were deleted from the chart) 16:44 16:44 Fall Risk IV access (20 points). mg2 mg2 18:47 16:45 Patient did not have IV access during this emergency room visit. mg2 mg2
[2018-08-25 18:53] VITALS: TEMP 98.3; O2SAT 100
[2018-08-25 18:54] VITALS: BP 110/70
== END 2018-08-25 18:48 | disposition home or self-care (01) ==
LOC: ER 16:02
DX: M54.5 Low back pain (principal); R10.30 Lower abdominal pain, unspecified
CPT/HCPCS: 36415; 74018; 76770; 80048; 81003; 81015; 81025; 85025; 87086; 87088; 99284

== ENCOUNTER 2018-11-20 12:16 | Emergency (ER) | payer BC ==
--- OUTSIDE RECORDS SUMMARY | 2018-11-20 12:19 | XMS REPORT | Clinical Summary ---
:1965 Author Organization [facility] Address [address] [place] [address] Care Team Providers Name Role Phone Yordan [...] Health Maintenance Due Date Last Done Comments BREAST CANCER SCREENING 2014 COLONOSCOPY SCREENING 2014 SHINGLES VACCINES (#1) 2014 INFLUENZA VACCINE 01/07/2019 Implants Implanted Type Area Flight Inspector Device Shelf Model / Identifier Expiration Serial / Date Lot Matrix Xenform 8x12cm Soft-Tissue Rpr - [id number] Surgical N/A: BSC UROLOGY 05/08/2018 [id number] / Implanted: 01/26/2016 (Quantity not on file) Bone Cement Vagina [id number] / [id number] Results Not on fileafter 11/19/2017 Advance Directives Patient has advance care planning documents on file. For more information, please contact:Ramu Tello[address] [facility] [place] [address]
[2018-11-20] MEDS ORDERED: NA CHLORIDE 0.9% 1,000 ML ONE (13:21)
[2018-11-20] MEDS ORDERED: ONDANSETRON 4 MG/2 ML VIAL ONE (13:37)
[2018-11-20 13:39] LABS: Absolute Lymphocytes (CBC) 2.3 K/uL (0.7-4.9); Absolute Monocytes 0.5 K/uL (0.1-1.3); Absolute Neutrophil 4.6 K/uL (1.8-8.0); Basophils % 0.7 % (0-1.3); Eosinophils % 0.1 % (0-4.4); Hematocrit 37.9 % (36.0-45.0); Lymphocytes % 31.1 % (15.3-44.8); MPV 8.3 fL (7.6-11.3); Monocytes % 6.5 % (3.3-12.3); RBC Red Blood Cell Count 4.25 M/uL (3.86-4.86)
[2018-11-20 13:49] LABS: Potassium 3.7 mmol/L (3.5-5.1)
[2018-11-20 14:32] LABS: Urine Blood 2+ (NEG); Urine Glucose NEGATIVE (NEG); Urine Protein NEGATIVE (NEG)
--- NOTE | 2018-11-20 15:53 | RAD REPORT ---
EXAM DESCRIPTION: CT - Abdomen Pelvis W Contrast - 11/20/2018 3:16 pm CLINICAL HISTORY: Abdominal pain. COMPARISON: September 2016 TECHNIQUE: Computed axial tomography of the abdomen and pelvis was obtained. 100 cc Isovue-300 is ad ministered intravenously. Oral contrast was given. All CT scans are performed using dose optimization technique as appropriate and may include automated exposure control or mA/KV adjustment according to patient size. FINDINGS: A small hepatic cyst Spleen, pancreas, adrenals and kidneys appear unremarkable. Diverticulitis described on the prior exam has resolved Hysterectomy IMPRESSION: No acute abnormality displayed
--- NOTE | 2018-11-20 15:57 | ER ---
Nurse's Notes [facility] Name: Xiomara Russ Age: 53 yrs Sex: Female : 1965 Arrival Date: 11/20/2018 Time: 12:22 Bed 23 Private MD: Yordan Velasco Diagnosis: Lower abdominal pain, unspecified Presentation: 11/20 12:25 Presenting complaint: Patient states: "I had diverticulitis back in October and my GI aa5 doctor in [place] want to do another CT scan with contrast". Pt reports she is taking Zithromax and a "steroid" for sinus infection. Pt c/o lower abd pain, nausea that became worse 1 week ago, pt states "the pain hasn't really gone away since I got diverticulitis". Denies vomiting, denies diarrhea. Transition of care: patient was not received from another setting of care. Onset of symptoms was November 2018. Risk Assessment: Do you want to hurt yourself or someone else? Patient reports no desire to harm self or others. Initial Sepsis Screen: Does the patient meet any 2 criteria? No. Patient's initial sepsis screen is negative. Does the patient have a suspected source of infection? No. Patient's initial sepsis screen is negative. Care prior to arrival: None. 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 - Social history:: Smoking status: Patient/guardian denies using tobacco. - Ebola Screening: : No symptoms or risks identified at this time. Screenin:58 Abuse screen: Denies threats or abuse. Denies injuries from another. Nutritional ca1 screening: No deficits noted. Tuberculosis screening: No symptoms or risk factors identified. Fall Risk IV access (20 points). Assessment: 12:58 General: Appears in no apparent distress. comfortable, Behavior is calm, cooperative, ca1 appropriate for age. Pain: Complains of pain in abdomen Pain does not radiate. Pain currently is 6 out of 10 on a pain scale. Neuro: Level of Consciousness is awake, alert, obeys commands, Oriented to person, place, time, situation. Cardiovascular: Heart tones S1 S2 present Capillary refill < 3 seconds Patient's skin is warm and dry. Respiratory: Airway is patent Respiratory effort is even, unlabored, Respiratory pattern is regular, symmetrical, Breath sounds are clear bilaterally. GI: Abdomen is flat, non-distended, Bowel sounds present X 4 quads. Abd is soft X 4 quads Abdomen is tender to palpation X 4 quads. : No deficits noted. No signs and/or symptoms were reported regarding the genitourinary system. EENT: No deficits noted. No signs and/or symptoms were reported regarding the EENT system. Derm: Skin is intact, is healthy with good turgor, Skin is pink, warm \\T\\ dry. Musculoskeletal: Circulation, motion, and sensation intact. Capillary refill < 3 seconds, Range of motion: intact in all extremities. 13:40 Reassessment: Oral contrast completed. Informed Radiology. ca1 13:56 Reassessment: Patient appears in no apparent distress at this time. Patient is alert, ca1 oriented x 3, equal unlabored respirations, skin warm/dry/pink. Pt ambulated to restroom. 14:24 Reassessment: Patient appears in no apparent distress at this time. Patient and/or ca1 family updated on plan of care and expected duration. Pain level reassessed. Patient is alert, oriented x 3, equal unlabored respirations, skin warm/dry/pink. 15:09 Reassessment: Patient appears in no apparent distress at this time. Patient is alert, ca1 oriented x 3, equal unlabored respirations, skin warm/dry/pink. Pending CT scan. 15:46 Reassessment: Patient appears in no apparent distress at this time. Patient is alert, ca1 oriented x 3, equal unlabored respirations, skin warm/dry/pink. Vital Signs: 12:28 BP 125 / 63; Pulse 81; Resp 16 S; Temp 98.1(O); Pulse Ox 100% on R/A; Weight 58.97 kg aa5 (R); Height 5 ft. 2 in. (157.48 cm) (R); Pain 8/10; 13:55 BP 119 / 56; Pulse 85; Resp 16 S; Pulse Ox 100% on R/A; ca1 15:09 BP 102 / 59; Pulse 74; Resp 16 S; Pulse Ox 100% on R/A; ca1 15:46 BP 115 / 56; Pulse 80; Resp 16 S; Temp 98(O); Pulse Ox 100% ; ca1 12:28 Body Mass Index 23.78 (58.97 kg, 157.48 cm) aa5 ED Course: 12:22 Patient arrived in ED. mr 12:22 Yordan Velasco is Private Physician. mr 12:25 Arm band placed on. aa5 12:28 Triage completed. aa5 12:28 [place] F[facility]-C [facility]. kb 12:28 Keny Andres MD is Attending Physician. kb 12:52 Renetta Mejia RN is Primary Nurse. ca1 12:58 Patient has correct armband on for positive identification. Placed in gown. Bed in low ca1 position. Call light in reach. Side rails up X 1. Pulse ox on. NIBP on. Warm blanket given. 12:58 No provider procedures requiring assistance completed. ca1 13:12 Inserted saline lock: 20 gauge in right antecubital area, using aseptic technique. ca1 Blood collected. 15:15 CT Abd/Pelvis - PO and IV Contrast In Process Unspecified. EDMS 16:03 IV discontinued, intact, bleeding controlled, No redness/swelling at site. Pressure ca1 dressing applied. Administered Medications: 13:15 Drug: NS 0.9% 1000 ml Route: IV; Rate: 1000 ml; Site: right antecubital; ca1 14:00 Follow up: Urine output 280 ml; Response: No adverse reaction; IV Status: Completed ca1 infusion 13:20 Drug: Zofran 4 mg Route: IVP; Site: left antecubital; ca1 14:37 Follow up: Response: No adverse reaction; Nausea is decreased ca1 Output: 14:00 Urine: 280ml; Total: 280ml. ca1 Outcome: 15:56 Discharge ordered by . kb 16:03 Discharged to home ambulatory. ca1 16:03 Condition: stable 16:03 Discharge instructions given to patient, Instructed on discharge instructions, follow up and referral plans. Demonstrated understanding of instructions, follow-up care. 16:03 Patient left the ED. ca1 Signatures: Dispatcher [employer] EDMS [place] FNP-C FNP-Steffi Hutchinson mr Dallin, Vianey, RN RN aa5 Renetta Mejia, RN RN ca1
--- NOTE | 2018-11-20 15:58 | EDPHYS ---
Physician Documentation [facility] Name: Xiomara Russ Age: 53 yrs Sex: Female : 1965 Arrival Date: 11/20/2018 Time: 12:22 Bed 23 Private MD: Yordan Velasco ED Physician Keny Andres HPI: 11/20 13:19 This 53 yrs old Female presents to ER via Ambulatory with complaints of kb Abdominal Pain. 13:19 The patient presents with abdominal pain in the left lower quadrant. Onset: The kb symptoms/episode began/occurred 1.5 month(s) ago. The symptoms do not radiate. Associated signs and symptoms: Pertinent positives: nausea, Pertinent negatives: anorexia, blood in stools, chest pain, constipation, diarrhea, dysuria, fever, headache, hematuria, palpitations, shortness of breath, vaginal discharge, vomiting, vomiting blood. The symptoms are described as constant. Modifying factors: The symptoms are alleviated by nothing, the symptoms are aggravated by nothing. Severity of pain: At its worst the pain was moderate in the emergency department the pain is unchanged. The patient has experienced similar episodes in the past, a few times. The patient has been recently seen by a physician:. Pt reports abd pain for a month and a half. States she had a CT scan when the pain first started and was diagnosed with diverticulitis. Her GI dr is in [place] and gave her 10 days of Augmentin at the time and wanted to do a colonoscopy 3 weeks later. States the pain never went away so he hasn't done the colonoscopy yet. STates she was told to get another CT done to re-evaluate diverticulitis by her GI and was told she could just come to an ER or UC for that without an order. . 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 - Social history:: Smoking status: Patient/guardian denies using tobacco. - Ebola Screening: : No symptoms or risks identified at this time. ROS: 13:08 ENT: Negative for injury, pain, and discharge, Neck: Negative for injury, pain, and kb swelling, Cardiovascular: Negative for chest pain, palpitations, and edema, Respiratory: Negative for shortness of breath, cough, wheezing, and pleuritic chest pain, Back: Negative for injury and pain, : Negative for injury, bleeding, discharge, and swelling, MS/Extremity: Negative for injury and deformity, Skin: Negative for injury, rash, and discoloration, Neuro: Negative for headache, weakness, numbness, tingling, and seizure. 13:08 Constitutional: Positive for chills, Negative for body aches, fatigue, fever, malaise, poor PO intake, weight loss. 13:08 Abdomen/GI: Positive for abdominal pain, nausea, Negative for vomiting, diarrhea, constipation, abdominal cramps, abdominal distension, anorexia. Exam: 13:19 Constitutional: This is a well developed, well nourished patient who is awake, alert, kb and in no acute distress. Head/Face: Normocephalic, atraumatic. ENT: Nares patent. No nasal discharge, no septal abnormalities noted. Tympanic membranes are normal and external auditory canals are clear. Oropharynx with no redness, swelling, or masses, exudates, or evidence of obstruction, uvula midline. Mucous membranes moist. Neck: Trachea midline, no thyromegaly or masses palpated, and no cervical lymphadenopathy. Supple, full range of motion without nuchal rigidity, or vertebral point tenderness. No Meningismus. Chest/axilla: Normal chest wall appearance and motion. Nontender with no deformity. No lesions are appreciated. Cardiovascular: Regular rate and rhythm with a normal S1 and S2. No gallops, murmurs, or rubs. Normal PMI, no JVD. No pulse deficits. Respiratory: Lungs have equal breath sounds bilaterally, clear to auscultation and percussion. No rales, rhonchi or wheezes noted. No increased work of breathing, no retractions or nasal flaring. Back: No spinal tenderness. No costovertebral tenderness. Full range of motion. Skin: Warm, dry with normal turgor. Normal color with no rashes, no lesions, and no evidence of cellulitis. MS/ Extremity: Pulses equal, no cyanosis. Neurovascular intact. Full, normal range of motion. Neuro: Awake and alert, GCS 15, oriented to person, place, time, and situation. Cranial nerves II-XII grossly intact. Motor strength 5/5 in all extremities. Sensory grossly intact. Cerebellar exam normal. Normal gait. 13:19 Abdomen/GI: Inspection: abdomen appears normal, Bowel sounds: normal, in all quadrants, Palpation: soft, in all quadrants, mild abdominal tenderness, in the suprapubic area and left lower quadrant. Vital Signs: 12:28 BP 125 / 63; Pulse 81; Resp 16 S; Temp 98.1(O); Pulse Ox 100% on R/A; Weight 58.97 kg aa5 (R); Height 5 ft. 2 in. (157.48 cm) (R); Pain 8/10; 13:55 BP 119 / 56; Pulse 85; Resp 16 S; Pulse Ox 100% on R/A; ca1 15:09 BP 102 / 59; Pulse 74; Resp 16 S; Pulse Ox 100% on R/A; ca1 15:46 BP 115 / 56; Pulse 80; Resp 16 S; Temp 98(O); Pulse Ox 100% ; ca1 12:28 Body Mass Index 23.78 (58.97 kg, 157.48 cm) aa5 MDM: 12:51 Patient medically screened. kb 13:08 Data reviewed: vital signs, nurses notes. Data interpreted: Pulse oximetry: on room air kb is 100 %. Interpretation: normal. 15:55 Counseling: I had a detailed discussion with the patient and/or guardian regarding: the kb historical points, exam findings, and any diagnostic results supporting the discharge/admit diagnosis, lab results, radiology results, the need for outpatient follow up, a cobbler sole, to return to the emergency department if symptoms worsen or persist or if there are any questions or concerns that arise at home. 11/20 13:00 Order name: Basic Metabolic Panel; Complete Time: 13:53 kb 11/20 13:00 Order name: CBC with Diff; Complete Time: 13:47 kb 11/20 13:00 Order name: CT Abd/Pelvis - PO and IV Contrast; Complete Time: 15:55 kb 11/20 13:08 Order name: Urine Dipstick--Ancillary (enter results); Complete Time: 14:32 ms 11/20 13:00 Order name: IV Saline Lock; Complete Time: 13:19 kb 11/20 13:00 Order name: Labs collected and sent; Complete Time: 13:19 kb 11/20 13:00 Order name: Urine Dipstick-Ancillary (obtain specimen); Complete Time: 13:23 kb Administered Medications: 13:15 Drug: NS 0.9% 1000 ml Route: IV; Rate: 1000 ml; Site: right antecubital; ca1 14:00 Follow up: Urine output 280 ml; Response: No adverse reaction; IV Status: Completed ca1 infusion 13:20 Drug: Zofran 4 mg Route: IVP; Site: left antecubital; ca1 14:37 Follow up: Response: No adverse reaction; Nausea is decreased ca1 Disposition: 18:08 Co-signature as Attending Physician, Keny Andres MD I agree with the assessment and kdr plan of care. Disposition: 11/20/18 15:56 Discharged to Home. Impression: Lower abdominal pain, unspecified. - Condition is Stable. - Discharge Instructions: Abdominal Pain, Adult, [id number]. - Medication Reconciliation Form, Thank You Letter, Antibiotic Education, Prescription Opioid Use form. - Follow up: Emergency Department; When: As needed; Reason: Worsening of condition. Follow up: Private Physician; When: 2 - 3 days; Reason: Recheck today's complaints, Continuance of care, Re-evaluation by your physician. Signatures: Dispatcher [employer] EDRI [place], CORRAL BOSS-C CORRAL BOSS-Ckb Keny Andres MD MD kdr Calderon, Audri, RN RN aa5 AcRenetta andre RN RN ca1 Corrections: (The following items were deleted from the chart) 16:03 15:56 11/20/2018 15:56 Discharged to Home. Impression: Lower abdominal pain, ca1 unspecified. Condition is Stable. Forms are Medication Reconciliation Form, Thank You Letter, Antibiotic Education, Prescription Opioid Use. Follow up: Emergency Department; When: As needed; Reason: Worsening of condition. Follow up: Private Physician; When: 2 - 3 days; Reason: Recheck today's complaints, Continuance of care, Re-evaluation by your physician. kb
[2018-11-20 16:18] VITALS: O2SAT 100
[2018-11-20 16:22] VITALS: BP 115/56; TEMP 98
== END 2018-11-20 16:03 | disposition home or self-care (01) ==
LOC: ER 12:16
DX: R10.32 Left lower quadrant pain (principal)
CPT/HCPCS: 36415; 74177; 80048; 81003; 85025; 96361; 96374; 99284; J2405; J7030; Q9967

== ENCOUNTER 2022-01-26 12:37 | Emergency (ER) | payer OTHER ==
--- OUTSIDE RECORDS SUMMARY | 2022-01-26 12:43 | XMS REPORT | Continuity of Care Document ---
:1965 Author Organization [facility] t Address [address] [place] [address] Dr. Hu. [address] [place] [address] Care Team Providers Name Role Phone Yordan Velasco MD Primary Care Physician LUCA DE JESUS Attending Clinician Unavailable DONNY BLACK Attending Clinician Unavailable BRIAN RANGEL Attending Clinician Unavailable Brian Rangel MD Attending Clinician Doctor Unassigned, [place] Attending Clinician Unavailable Kylah Flaherty RN Attending Clinician Unavailable NEELA DUVALL III Attending Clinician Unavailable Only, Ang Db Test Attending Clinician Unavailable Neela Duvall MD Attending Clinician ALDAIR CHRISTIANSON Attending Clinician Unavailable Brian Bazzi Attending Clinician Flora Beth Attending Clinician FLORA ELIZONDO Attending Clinician Unavailable Delmis Jaquez RN Attending Clinician Unavailable Unknown, Attending Attending Clinician Unavailable UNKNOWN, ATTENDING Attending Clinician Unavailable KENJI GARAY Attending Clinician Unavailable KARAN SALOMON Attending Clinician Unavailable Raju_P Attending Clinician Unavailable Raju_P Admitting Clinician Unavailable Payers Payer Name Policy Type Policy Number Effective Date Expiration Date S [id number] 2021 2021 00:00:00 00:00:00 [facility] CHOICE/CHOICE [id number] 2021 PLUS 00:00:00 [facility] [id number] 2021 PPO/POS 00:00:00 Problems Condition Condition Condition Status Onset Resolution Last Treating Co mments Source Name Details Category Date Date Treatment Clinician Date Other Other Disease Active [facility] specified specified 07-05 Heal th dermatitis dermatitis 00:00: 00 Fixed drug Fixed drug Disease Active U T eruption eruption 07-05 Health 00:00: 00 History of History of Disease Active U T frequent frequent 07-05 Health urinary urinary 00:00: tract tract 00 infections infections Long-term Long-term Disease Active [facility] current current 07-05 Health use of use of 00:00: high risk high risk 00 medication medication other than other than anticoagul anticoagul ant ant No known No known Disease Unive rs active active ity of problems problems [facility] Allergies, Adverse Reactions, Alerts Allergy Allergy Status Severity Reaction(s) Onset Inactive Treating Comm ents Source Name Type Date Date Clinician SULFAMET DRUG Active Rash Univers HOXAZOLE 6-20 ity of -TRIMETH 00:00: [place] OPRIM 00 Medical Branch PENICILL DRUG Active Rash Univers IN INGREDI 6-20 ity of 00:00: [place] 00 Medical Branch Sulfamet Propensi Active Rash Univer s hoxazole ty to 6-20 ity of -Trimeth adverse 00:00: [place] oprim reaction 00 Medical s Branch Penicill Propensi Active Rash Univer s in ty to 6-20 ity of adverse 00:00: [place] reaction 00 Medical s Branch Shellfis Propensi Active Other - See Noted on Univers h ty to comments 01-04 allergy ity of Derived adverse 00:00: testing [place] reaction 00 Medical s Branch SHELLFIS DRUG Active Other-Cmnt Univ ers H INGREDI 01-04 ity of DERIVED 00:00: [place] 00 Medical Branch SULFAMET DRUG Active Low Rash Univers HOXAZOLE INGREDI 01-04 ity of 00:00: [place] 00 Medical Branch Shellfis Propensi Active Anaphylaxis Noted on UT h-Derive ty to 01-04 allergy Health d adverse 00:00: testing Products reaction 00 s Sulfamet Propensi Active Rash UT hoxazole ty to 01-04 Health adverse 00:00: reaction 00 s NO KNOWN Drug Active Univers ALLERGIE Class ity of S [facility] Social History Social Habit Start Date Stop Date Quantity Comments Source Exposure to 2021-12-23 2022-01-02 Not sure [facility] SARS-CoV-2 (event) 00:00:00 13:12:00 Tobacco use and 2021-11-26 2021-11-26 Never used [facility] exposure 00:00:00 00:00:00 [facility] Branch Alcohol intake 2021-11-14 2021-11-14 .14 /d [facility] 00:00:00 00:00:00 [birth year] [facility] 00:00:00 00:00:00 Smoking Status Start Date Stop Date Source Unknown if ever smoked [facility] Never smoker [facility] Branch Medications Ordered Filled Start Stop Current Ordering Indication Dosage Frequency Signature Comments Components Source Medication Medication Date Date Medication? Clinician (SIG) Name Name clobetasol Yes [id number] Apply [place] (Temovate) 803 topically Heal th 0.05 % 00:00: to ointment 00 affected area on wrist twice daily for up to 2 weeks, then repeat as needed for flares. methotrexat Yes [id number] Take 6 UT e 2.5 MG 8-03 pills by Health tablet 00:00: mouth 00 every Friday (3 in morning, 3 at night) leucovorin Yes [id number] Take with UT (Wellcovori 8-03 a full Health n) 10 MG 00:00: glass of tablet 00 water. Take the next day after taking methotrexa te. ketorolac 2021- No [id number] 30mg Un stacey (TORADOL) 11-26- ity of injection 21:30: 20:27 [place] 30 mg 00 :00 Medical Branch ondansetron 2021- No [id number] 8mg Univers (ZOFRAN-ODT 11-2620 ity of ) 21:30: 20:27 [place] disintegrat 00 :00 Medical ing tablet Branch 8 mg ondansetron 2021- No [id number] 8mg 8 mg, Univers (ZOFRAN-ODT 11-26-20 Oral, ity of ) 21:30: 20:27 ONCE, 1 [place] disintegrat 00 :00 dose, On Medi eryn ing tablet Mon Branch 8 mg 11/26/21 at 1630, Routine ketorolac 2021- No [id number] 30mg 30 mg, Univers (TORADOL) 11-26-20 Intramuscu ity of injection 21:30: 20:27 lar, ONCE, [place] 30 mg 00 :00 1 dose, On Medical Mon Branch 11/26/21 at 1630, Routine ondansetron Yes [id number] 4mg Take 1 Univers 4 mg 6-20 tablet by ity of disintegrat 00:00: mouth [place] ing tablet 00 every 8 Medica l (eight) Branch hours as needed for Nausea and Vomiting (N/V). cyclobenzap Yes [id number] 5mg Take 1 Univers rine 5 mg 6-20 4 tablet by ity o f tablet 00:00: mouth at [place] 00 bedtime. Medical Branch leucovorin 2021- No [id number] Take with UT (Wellcovori 11-14 a full Healt h n) 10 MG 00:00: 00:00 glass of tablet 00 :00 water. Take the next day after taking methotrexa te. methotrexat 2021- No [id number] Take 6 UT e 2.5 MG 11-14 pills by Health tablet 00:00: 00:00 mouth 00 :00 every Friday (3 in morning, 3 at night) traZODone 2021- No [id number] 50mg Take 1 U T (Desyrel) 11-14 tablet (50 Hea lth 50 MG 00:00: 00:00 mg total) tablet 00 :00 by mouth every night. Ok to split into quarters folic acid 2021- No [id number] 1mg QD Take 1 UT (Folvite) 1 09-12 4107 tablet (1 He alth MG tablet 00:00: 00:00 mg total) 00 :00 by mouth 1 (one) time each day. No known No Univers medications 03-07 ity of 16:11: [address] No known No Univers medications 03-07 ity of 16:11: [address] No known No Univers medications 03-07 ity of 16:11: [address] No known No Univers medications 03-07 ity of 16:11: [address] No known No Univers medications 03-07 ity of 16:11: [address] Vital Signs Vital Name Observation Time Observation Value Comments Source Systolic blood 2021-11-26 20:11:00 132 mm[Hg] Univer sity of pressure [facility] Diastolic blood 2021-11-26 20:11:00 87 mm[Hg] Unive rsity of pressure [facility] Heart rate 2021-11-26 20:11:00 120 [facility] Body temperature 2021-11-26 20:11:00 36.78 Sugar [facility] Respiratory rate 2021-11-26 20:11:00 18 /min [facility] Body height 2021-11-26 20:11:00 157.5 cm [facility] Body weight 2021-11-26 20:11:00 59.875 [facility] BMI 2021-11-26 20:11:00 24.14 kg/m2 [facility] Oxygen saturation in 2021-11-26 20:11:00 99 /min University of Arterial blood by [facility] Pulse oximetry Branch Respiratory rate 2021-03-07 21:08:00 18 /min [facility] Oxygen saturation in 2021-03-07 21:08:00 100 /min University Arterial blood by [facility] Pulse oximetry Branch Procedures Procedure Date / Time Performed Performing Clinician [facility] e ASSIGNMENT OF BENEFITS 2021-11-26 20:02:56 Doctor Unassigned, No University [facility] Name Medical Branch Encounters Start End Encounter Admission Attending Care Care Encounter Source Date/Time Date/Time Type Type Clinicians Facility Department ID 2021-12-18 Outpatient [facility]M [facility] [id number] [place] 10:00:05 LUCA [id number] [facility] 2021-11-14 [facility] [id number] [place] 10:22:34 DONNY [id number] [facility] 2021-11-08 [facility] [id number] [place] 14:17:35 DONNY [id number] [facility] 2021-11-[address] [facility] [id number] [place] 13:26:02 [id number] [facility] 2021-09-12 [facility] [id number] [id number] [place] 12:14:20 DONNY [id number] [facility] 2021-09-[address] [facility] [id number] [place] 06:02:36 [id number] [facility] 2021-09-05 [facility] [id number] [place] 16:41:29 DONNY [id number] [facility] 2021-08-29 [facility] [id number] [place] 12:47:42 DONNY [id number] [facility] 2021-06-28 [facility] [id number] [place] 12:33:59 DONNY [facility] 2022-04-10 2022-04-10 [facility] [id number] [place] 10:00:00 10:00:00 DONNY [facility] 2022-01-09 2022-01-09 [place] [address] [id number] [place] 09:30:00 10:39:03 Visit Donny [id number] [facility] [id number] 2021-11-26 2021-11-26 [facility] [id number] Univers 15:20:00 15:25:28 [facility] 2021-11-26 2021-11-26 [facility] [id number] Univers 15:20:00 15:25:28 Care [facility] [id number] it y of [place]ARY [id number] Jose as ROBERTO?BLEA [phone] [place] l[place] [address] MEDICAL OFFICE BUILDING 2021-11-26 2021-11-26 Outpatient R [facility] [id number] Univers 15:20:00 15:20:00 [id number] [facility] 2021-11-26 2021-11-26 Orders Doctor PRADO 1.2.840.114 [id number] Univers 00:00:00 00:00:00 Only Unassigned, MARY [id number] ity of [place] [facility] [id number] Jose as [id number] [facility] 009 Branch 2021-07-27 2021-07-27 Letter EVE Flaherty 1.2.840.114 [id number] Univers 00:00:00 00:00:00 (Out) Kylah Bingham MARY [id number] it y of [facility] [id number] Jose as [id number] [facility] 019 Branch 2021-07-26 2021-07-26 Outpatient R [facility] [id number] Univers 15:15:00 15:15:00 [id number] ity [facility] 2021-07-26 2021-07-26 Outpatient R [facility]ING [facility] [id number] Univers 15:15:00 15:15:00 [facility] 2021-07-26 2021-07-26 Laboratory Only, Ang Db Test [facility] 1.2.8 40.114 [id number] Univers 15:15:00 15:15:00 Only Neela Duvall [facility] [id number] ity [facility] [id number] Jose as ROBERTO?BLEA [id number] [address] MEDICAL OFFICE BUILDING 2021-04-09 2021-04-09 Outpatient R [facility] [id number] Univers 00:00:00 00:00:00 ALDAIR Parsons [id number] chulay o f [facility] 2021-04-04 2021-04-04 Outpatient R [facility] [id number] Univers 13:00:00 13:00:00 ALDAIR Parsons [id number] ity o f [facility] 2021-04-03 2021-04-03 Outpatient R [facility] [id number] Univers 00:00:00 00:00:00 ALDAIR Parsons [id number] ity o f [facility] 2021-04-03 2021-04-03 Outpatient R [facility] [id number] Univers 00:00:00 00:00:00 ALDAIR Parsons ity o f [facility] 2021-03-08 2021-03-08 Letter EVE Flaherty 1.2.840.114 [id number] Univers 00:00:00 00:00:00 (Out) Kylah HERNANDEZ [id number] it y of [facility] [id number] Jose as [phone] [address] 2021-03-07 2021-03-07 Urgent Brian Sanchez [facility] .2.840.114 [id number] Univers 16:01:33 16:21:33 Care Flora Elizondo [facility] [id number] ity of [place] [id number] Jose as Roberto?Blea [id number] [address] Medical Office [facility] 2021-03-07 2021-03-07 Outpatient [facility] [id number] Univers 16:20:00 16:20:00 [id number] ity [facility] 2021-03-07 2021-03-07 [facility]patient [facility] [id number] Univers 16:20:00 16:20:00 FLORA schultz [facility] 2021-02-13 2021-02-13 Laboratory Only, Ang Db Test [facility] 1.2.8 40.114 [id number] Univers 09:53:42 10:08:42 Only Brian Rangel [facility] [id number] ity of [place] [id number] Jose as Roberto?Blea [id number] [address] Medical Office [facility] 2021-02-13 2021-02-13 Outpatient [facility] [id number] Univers 10:00:00 10:00:00 [id number] [facility] 2021-02-13 2021-02-13 Outpatient R [facility] [id number] Univers 10:00:00 10:00:00 BRIAN [facility] 2021-02-02 2021-02-02 Letter Delmis Jaquez .2.840.114 [id number] Univers 00:00:00 00:00:00 (Out) MARY [id number] it y of [facility] [id number] Jose as [id number] [address] 2021-02-02 2021-02-02 Letter EVE Flaherty 1.2.840.114 [id number] Univers 00:00:00 00:00:00 (Out) Kylah Bingham MARY [id number] it y of [facility] [id number] Jose as [id number] [address] 2021-02-01 2021-02-01 Laboratory Only, Ang Db Test [facility] 1.2.8 40.114 [id number] Univers 11:42:30 11:57:30 Only Unknown, Attending Health [id number] ity [facility] [id number] Jose as Roberto?Blea [phone] [address] Medical Office Building 2021-02-01 2021-02-01 Outpatient R UNKNOWN, [facility] [id number] Univers 11:50:00 11:50:00 ATTENDING ity of [facility] 2021-02-01 2021-02-01 Letter Doctor PRADO 1.2.840.114 [id number] Univers 00:00:00 00:00:00 (Out) Unassigned, MARY [id number] ity of [place] [facility] [id number] Jose as [id number] [address] 2021-02-01 2021-02-01 Letter Doctor PRADO 1.2.840.114 [id number] Univers 00:00:00 00:00:00 (Out) Unassigned, MARY [id number] ity of [place] [facility] [id number] Jose as [phone] [address] 2020-09-04 2020-09-04 Outpatient [facility] [id number] [place] 00:00:00 00:00:[address] 2020-08-11 2020-08-11 [facility] [id number] [place] 00:00:00 00:00:00 KENJI 727 Method i 2019-11-04 2019-11-04 Outpatient SALOMON, [facility] [id number] [place] 00:00:00 00:00:00 KARAN 066 Method i 2019-10-28 2019-10-28 Outpatient [facility] [id number] [place] 00:00:00 00:00:00 719 Method i 2019-09-03 2019-09-03 Outpatient Raju_P [facility] [id number] [facility] 03:48:00 03:48:00 [id number] Medical Group Results This patient has no known results.
[2022-01-26 13:56] LABS: Urine Blood Trace-intact (Negative); Urine Glucose Negative (Negative); Urine Protein Negative (Negative); Urine Specific Gravity >=1.030 (1.005-1.030); Urine pH 6.5 (5.0-7.0)
[2022-01-26 14:34] LABS: Absolute Lymphocytes (CBC) 1.1 K/uL (0.7-4.9); Hematocrit 36.3 % (36.0-45.0); Lymphocytes % 24.8 % (15.3-44.8); MCV 93.9 fL (80-100); MPV 7.9 fL (7.6-11.3); RBC Red Blood Cell Count 3.86 M/uL (3.86-4.86)
[2022-01-26 14:41] LABS: Albumin 4.2 g/dL (3.4-5.0); Bilirubin Total 0.5 mg/dL (0.2-1.0); Potassium 4.2 mmol/L (3.5-5.1); Protein, Total 7.8 g/dL (6.4-8.2)
--- NOTE | 2022-01-26 15:55 | RAD REPORT ---
EXAM DESCRIPTION: CT - Abdomen Pelvis W Contrast - 01/26/2022 3:44 pm CLINICAL HISTORY: lower abdominal pain COMPARISON: Abdomen Pelvis W Contrast dated 11/20/2018 TECHNIQUE: Biphasic, helical CT imaging of the abdomen and pelvis was performed following 100 ml non -ionic IV contrast. No oral contrast administered. All CT scans are performed using dose optimization technique as appropriate and may include automated exposure control or mA/KV adjustment according to patient size. FINDINGS: No suspicious findings in the lung bases. The liver, spleen, and pancreas show no suspicious findings. Multiple small benign appearing liver cy sts are present minimally progressive since 2019. Gallbladder and biliary tree are also without suspi cious finding. Symmetric renal function is seen with no hydronephrosis or suspicious renal mass. No pyelonephritis o r acute parenchymal process. No bladder abnormalities. No adrenal abnormalities. Uterus is absent. Ov abhijit are absent, atrophic and/or obscured by non-opacified adjacent small bowel. No [employer] SERVIC[employer] abnormality seen. No stomach or small bowel abnormality. No appendicitis findings. No colitis or acute colon process id entifiable. There is no colon dilatation. No free air, free fluid or inflammatory stranding. No hernia, mass or bulky lymphadenopathy. No suspicious bony findings. IMPRESSION: Contrast enhanced CT abdomen and pelvis showing no acute or emergent finding.
--- NOTE | 2022-01-26 16:38 | ER ---
Nurse's Notes [facility] Name: Xiomara Russ Age: 56 yrs Sex: Female : 1965 Arrival Date: 01/26/2022 Time: 12:38 Bed 11 Private MD: Yordan Velasco Diagnosis: Other abdominal pain Presentation: 01/26 13:01 Chief complaint: Patient states: Pt reports ongoing "GI issues" including constipation, kb3 diarrhea, nausea, abdominal cramping for several years, worse over the last 3 weeks. Coronavirus screen: Vaccine status: Patient reports receiving the 2nd dose of the covid vaccine. Client denies travel out of the [place] in the last 14 days. At this time, the client does not indicate any symptoms associated with coronavirus-19. Ebola Screen: Patient negative for fever greater than or equal to 101.5 degrees Fahrenheit, and additional compatible Ebola Virus Disease symptoms Patient denies exposure to infectious person. Patient denies travel to an Ebola-affected area in the 21 days before illness onset. No symptoms or risks identified at this time. Initial Sepsis Screen: Does the patient have a suspected source of infection? No. Patient's initial sepsis screen is negative. Risk Assessment: Do you want to hurt yourself or someone else? Patient reports no desire to harm self or others. Onset of symptoms is unknown. 13:01 Method Of Arrival: Ambulatory kb3 13:01 Acuity: EFFIE 3 kb3 13:05 Initial Sepsis Screen: Does the patient meet any 2 criteria? No. Patient's initial iw sepsis screen is negative. Triage Assessment: 13:03 General: Appears in no apparent distress. comfortable, Behavior is calm, cooperative. kb3 Pain: Complains of pain in abdomen Pain does not radiate. Pain currently is 7 out of 10 on a pain scale. Quality of pain is described as crampy. GI: Reports constipation, cramping, diarrhea. Historical: - Allergies: 13:03 Bactrim; kb3 13:03 PENICILLINS; kb3 - PMHx: 13:03 Cdiff; Diverticulitis; Hypothyroidism; Kidney stones; Migraines; kb3 - Immunization history:: Adult Immunizations up to date, Client reports receiving the 2nd dose of the Covid vaccine, Last tetanus immunization: up to date. - Social history:: Smoking status: Patient denies any tobacco usage or history of. Patient/guardian denies using alcohol, street drugs. Screenin:10 Abuse screen: Denies threats or abuse. Denies injuries from another. Nutritional iw screening: No deficits noted. Tuberculosis screening: No symptoms or risk factors identified. Fall Risk None identified. Assessment: 14:02 General: Pt assessed by Norberto MASON in triage. kb3 17:00 General: Appears in no apparent distress. Behavior is calm, cooperative. Pain: iw Complains of pain in abdomen. Neuro: Level of Consciousness is awake, alert, obeys commands, Oriented to person, place, time, situation, Moves all extremities. Full function. Respiratory: Airway is patent Respiratory effort is even, unlabored. GI: Abdomen is non-distended, Bowel sounds present X 4 quads. Abd is soft X 4 quads. Derm: Skin is intact, is healthy with good turgor. Musculoskeletal: Range of motion: intact in all extremities. Vital Signs: 13:01 BP 123 / 060; Pulse 98; Resp 20; Temp 98.8; Pulse Ox 100% ; Weight 58.97 kg; Height 5 kb3 ft. 2 in. (157.48 cm); Pain 7/10; 13:01 Body Mass Index 23.78 (58.97 kg, 157.48 cm) kb3 ED Course: 12:38 Patient arrived in ED. as 12:40 Yordan Velasco is Private Physician. as 13:03 Triage completed. kb3 13:03 Arm band placed on right wrist. kb3 13:54 [facility] Crespo [facility] 13:54 Judith Man MD is Attending Physician. [facility] 13:56 CBC with Diff Sent. kc6 13:56 CMP Sent. kc6 13:56 Lipase Sent. kc6 13:56 Inserted saline lock: 20 gauge in right antecubital area, using aseptic technique. kc6 Blood collected. 14:05 Patient has correct armband on for positive identification. iw 15:25 Masha Sloan, RN is Primary Nurse. iw 15:46 CT Abd/Pelvis - IV Contrast Only In Process Unspecified. EDMS 17:11 No provider procedures requiring assistance completed. IV discontinued, intact, iw bleeding controlled, No redness/swelling at site. Pressure dressing applied. Administered Medications: No medications were administered Medication: 14:00 VIS not applicable for this client. iw Outcome: 16:38 Discharge ordered by MD. lamar 17:11 Discharged to home ambulatory, with family. iw 17:11 Condition: good 17:11 Discharge instructions given to patient, Instructed on discharge instructions, follow up and referral plans. Demonstrated understanding of instructions, follow-up care. 17:11 Prescriptions given X 2. iw 17:12 Patient left the ED. iw Signatures: Dispatcher [employer] EDMS Norberto Crespo PA PA jmm Martinez, Amelia as Williams, Irene, RN RN iw Verenice Pelaez kc6 Katina Vega, RN RN kb3 Corrections: (The following items were deleted from the chart) 13:05 13:03 Allergies: No Known Allergies; kb3 kb3
--- NOTE | 2022-01-26 16:38 | EDPHYS ---
Physician Documentation [facility] Name: Xiomara Russ Age: 56 yrs Sex: Female : 1965 Arrival Date: 01/26/2022 Time: 12:38 Bed 11 Private MD: Yordan Velasco ED Physician Judith Man HPI: 01/26 13:43 This 56 yrs old Female presents to ER via Ambulatory with complaints of jmm Abdominal Cramping. 13:43 The patient presents with abdominal pain. Onset: The symptoms/episode began/occurred jmm gradually, today. The symptoms radiate to pelvis. The symptoms are described as achy, crampy, intermittent, sharp. Modifying factors: The symptoms are alleviated by nothing, the symptoms are aggravated by nothing. It is unknown whether or not the patient has had similar symptoms in the past. Historical: - Allergies: 13:03 Bactrim; kb3 13:03 PENICILLINS; kb3 - PMHx: 13:03 Cdiff; Diverticulitis; Hypothyroidism; Kidney stones; Migraines; kb3 - Immunization history:: Adult Immunizations up to date, Client reports receiving the 2nd dose of the Covid vaccine, Last tetanus immunization: up to date. - Social history:: Smoking status: Patient denies any tobacco usage or history of. Patient/guardian denies using alcohol, street drugs. ROS: 13:43 Constitutional: Negative for fever, chills, and weight loss, Cardiovascular: Negative jmm for chest pain, palpitations, and edema, Respiratory: Negative for shortness of breath, cough, wheezing, and pleuritic chest pain. 13:43 Abdomen/GI: Positive for abdominal pain. 13:43 All other systems are negative. Exam: 13:43 Constitutional: This is a well developed, well nourished patient who is awake, alert, jmm and in no acute distress. Head/Face: atraumatic. Eyes: EOMI, no conjunctival erythema appreciated ENT: Moist Mucus Membranes Neck: Trachea midline, Supple Chest/axilla: Normal chest wall appearance and motion. Cardiovascular: Regular rate and rhythm. No edema appreciated Respiratory: Normal respirations, no respiratory distress appreciated 13:43 Back: Normal ROM Skin: General appearance color normal MS/ Extremity: Moves all extremities, no obvious deformities appreciated, no edema noted to the lower extremities Neuro: Awake and alert Psych: Behavior is normal, Mood is normal, Patient is cooperative and pleasant 13:43 Abdomen/GI: Inspection: abdomen appears normal, Bowel sounds: normal, Palpation: soft, mild abdominal tenderness, in the umbilical area and suprapubic area. Vital Signs: 13:01 BP 123 / 060; Pulse 98; Resp 20; Temp 98.8; Pulse Ox 100% ; Weight 58.97 kg; Height 5 kb3 ft. 2 in. (157.48 cm); Pain 7/10; 13:01 Body Mass Index 23.78 (58.97 kg, 157.48 cm) kb3 MDM: 13:59 Patient medically screened. [facility] 16:37 Data reviewed: vital signs, nurses notes. Counseling: I had a detailed discussion with carl the patient and/or guardian regarding: the historical points, exam findings, and any diagnostic results supporting the discharge/admit diagnosis, the need for outpatient follow up, to return to the emergency department if symptoms worsen or persist or if there are any questions or concerns that arise at home. 01/26 13:43 Order name: CBC with Diff; Complete Time: 14:40 iw 01/26 13:43 Order name: CMP; Complete Time: 14:45 01/26 13:43 Order name: Lipase; Complete Time: 14:45 01/26 13:43 Order name: IV Saline Lock; Complete Time: 13:56 01/26 13:56 Order name: Urine Dipstick-Ancillary; Complete Time: 14:01 [facility] 01/26 14:00 Order name: CT Abd/Pelvis - IV Contrast Only; Complete Time: 16:01 [facility] 01/26 13:43 Order name: Labs collected and sent; Complete Time: 13:56 01/26 13:43 Order name: Urine Dipstick-Ancillary (obtain specimen); Complete Time: 13:56 iw Administered Medications: No medications were administered Disposition: 18:02 Co-signature as Attending Physician, Judith Man MD STAFF ATTESTATION STATEMENT: I sd2 was immediately available onsite in the emergency department for consultation in the care of this patient. I did not see or examine this patient. Judith Man MD. Disposition Summary: 01/26/22 16:38 Discharge Ordered Location: Home [facility] Condition: Stable [facility] Diagnosis - Other abdominal pain [facility] Followup: [facility] - With: Private Physician - When: 2 - 3 days - Reason: Recheck today's complaints, Continuance of care, Re-evaluation by your physician Discharge Instructions: - Discharge Summary Sheet [facility] - Abdominal Pain, Adult [facility] Forms: - Medication Reconciliation Form [facility] - Thank You Letter [facility] - Antibiotic Education [facility] - Prescription Opioid Use [facility] Prescriptions: - dicyclomine 20 mg Oral Tablet - take 1 tablet by ORAL route 3 times per day; 30 tablet; Refills: 0, Product [facility] Selection Permitted - Pepcid 20 mg Oral Tablet - take 1 tablet by ORAL route every 12 hours for 10 days; 20 tablet; Refills: 0, [facility] Product Selection Permitted - ondansetron 4 mg odt - take 1 tablet by ORAL route every 4-6 hours As needed; 20 tablet; Refills: 0, [facility] Product Selection Permitted Signatures: Dispatcher [employer] EDNorberto Tay PA PA jmm Williams, Irene, RN RN iw Judith Man MD MD sd2 Katina Vega RN RN kb3 Corrections: (The following items were deleted from the chart) 13:05 13:03 Allergies: No Known Allergies; kb3 kb3
[2022-01-26 18:08] VITALS: BP 123/060; TEMP 98.8; O2SAT 100
== END 2022-01-26 17:12 | disposition home or self-care (01) ==
LOC: ER 12:37
DX: R10.9 Unspecified abdominal pain (principal); Z87.442 Personal history of urinary calculi; Z88.0 Allergy status to penicillin
CPT/HCPCS: 85025; 36415; 81003; 83690; 80053; 74177; 99284; Q9967

== ENCOUNTER 2022-10-21 09:33 | Emergency (ER) | payer BC ==
--- OUTSIDE RECORDS SUMMARY | 2022-10-21 09:38 | XMS REPORT | Continuity of Care Document ---
:1965 Author Organization [facility] Address [address] [facility] [address] [place] [address] Care Team Providers Name Role Phone Yordan Velasco MD Primary Care Physician Mao Zavala Attending Clinician Unavailable LUCA DE JESUS Attending Clinician Unavailable DONNY BLACK Attending Clinician Unavailable Karol Pfeiffer MD Attending Clinician Flora Beth Attending Clinician Unknown, Attending Attending Clinician Unavailable FLORA ELIZONDO Attending Clinician Unavailable Agata Bazzi Attending Clinician AGATA SANCHEZ Attending Clinician Unavailable ONUR SPRAGUE Attending Clinician Unavailable Onur Li Attending Clinician BRIAN RANGEL Attending Clinician Unavailable Brian Rangel MD Attending Clinician Doctor Unassigned, [place] Attending Clinician Unavailable Kylah Flaherty RN Attending Clinician Unavailable NEELA DUVALL III Attending Clinician Unavailable Only, Ang Db Test Attending Clinician Unavailable Neela Duvall MD Attending Clinician ALDAIR CHRISTIANSON Attending Clinician Unavailable Delmis Jaquez RN Attending Clinician Unavailable UNKNOWN, ATTENDING Attending Clinician Unavailable KENJI GARAY Attending Clinician Unavailable KARAN SALOMON Attending Clinician Unavailable Raju_P Attending Clinician Unavailable Raju_P Admitting Clinician Unavailable Payers Payer Name Policy Type Policy Number Effective Date Expiration Date S [id number] 2021 2021 00:00:00 00:00:00 [facility] CHOICE/CHOICE [id number] 2021 PLUS 00:00:00 [facility] [id number] 2021 PPO/POS 00:00:00 Problems Condition Condition Condition [...] than other than anticoagul anticoagul ant ant Chronic Chronic Disease Active Methodi pelvic pelvic 3-05 st pain in pain in 00:00: Hospita female female 00 l Chronic Chronic Disease Active Methodi cystitis cystitis 3-05 st with with 00:00: Hospita hematuria hematuria 00 l 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 3-05 st 00:00: Hospita 00 l Midline Midline Disease Active Methodi cystocele cystocele 8-19 st 00:00: Hospita 00 l Prolapse Prolapse Disease Active Metho di of female of female 8-19 st pelvic pelvic 00:00: Hospita organs organs 00 l Prolapse Prolapse Disease Active Metho di of vaginal of vaginal 8-17 st wall with wall with 00:00: Hosp to midline midline 00 l cystocele cystocele No known No known Disease Unive rs active active ity of problems problems [facility] Allergies, Adverse Reactions, Alerts Allergy Allergy Status Severity Reaction(s) Onset Inactive Treating Comm ents Source Name Type Date Date Clinician Sanchez Wilkersoni Active Blister [facility] Ds ty to 4-03 College adverse 00:00: of reaction 00 Medicin s to e drug SULFAMET DRUG Active Rash Univers HOXAZOLE 6-20 ity of -TRIMETH 00:00: [place] OPRIM 00 Medical Branch PENICILL DRUG Active Rash Univers IN INGREDI 6-20 ity of 00:00: [place] 00 Medical Branch Sulfamet Propensi Active Rash Univer s hoxazole ty to 11-26 ity of -Trimeth adverse 00:00: [place] oprim reaction 00 Medical s Branch Penicill Propensi Active Rash Univer s in ty to 620 ity of adverse 00:00: [place] reaction 00 Medical s Branch Penicill Propensi Active Rash [facility] ins ty to 11-26 College adverse 00:00: of reaction 00 Medicin s to e drug Shellfis Propensi Active Anaphylaxis Noted on [facility] h-Derive ty to 01-04 allergy Health d adverse 00:00: testing Products reaction 00 s Sulfamet Propensi Active Rash [facility] hoxazole ty to 01-04 Health adverse 00:00: reaction 00 s Shellfis Propensi Active Other - See Noted [...] 00 Medical Branch Sulfamet Propensi Active Rash Method i hoxazole ty to 01-04 st -Trimeth adverse 00:00: Hospita oprim reaction 00 l s to drug Shellfis Propensi Active Other (See Noted on Methodi h ty to Comments) 01-[address] Derived adverse 00:00: testing Hospita reaction 00 l s to drug Shellfis Propensi Active Anaphylaxis Noted on [facility] h-Derive ty to 01-04 allergy College d adverse 00:00: testing of Products reaction 00 Medici n s to e drug NO KNOWN Drug Active Univers ALLERGIE Class ity of S [facility] Social History Social Habit Start Date Stop Date Quantity Comments Source Gender identity [facility] Sexual orientation [facility] Tobacco use and 2022-09-09 2022-09-09 Smokeless tobacco [facility] College of exposure 00:00:00 00:00:00 non-user Medicine Exposure to 2022-08-12 2022-08-22 Not sure [facility] SARS-CoV-2 (event) 00:00:00 12:49:00 [facility] History of Social 2022-08-13 2022-08-[address] function 00:00:00 00:00:00 Hospital Alcohol intake 2020-09-06 2020-09-06 Current drinker Metho dist 00:00:00 00:00:00 of alcohol Hospital (finding) Alcohol Comment 2016-01-05 2016-01-05 occasional social [facility] 00:00:00 00:00:00 Hospital Sex Assigned At [birth year] [facility] 00[facility]00 [facility] Smoking Status Start Date Stop Date Source Tobacco smoking consumption unknown [facility] Never smoked tobacco [facility] Sana ege of Medicine Medications Ordered Filled Start Stop Current Ordering Indication Dosage Frequency Signature Comments Components Source Medication Medication Date Date Medication? Clinician (SIG) Name Name hydroxychlo 2022- No 200mg Take 1 [facility] roquine -17 04-17 Tablet by [facility] (PLAQUINIL) 12:16: 00:00 mouth two of 200 MG 40 :00 times Medicin tablet daily. e cyanocobala 0 Yes cyanocobal Mark min 1000 -17 russ (vit Colleg e MCG/ML 11:24: B-12) of injection 15 1,000 Medicin mcg/mL e injection solution Vitamin 2022-0 Yes 1{capsu Take 1 [facility] D-Vitamin K 4-17 le} capsule by Co otoniel (K2 PLUS 11:24: mouth of D3) 15 daily. Medicin 100-1000 e MCG-UNIT TABS dicyclomine Yes 20mg Take 1 [facility] (BENTYL) 20 -17 Tablet by Col lege MG tablet 11:24: mouth of 15 every 6 Medicin hours. e Saccharomyc 0 Yes Take by [place] bart es -17 mouth. 1 College boulardii 11:24: tablet of 250 MG CAPS 15 daily Medicin e Ascorbic 2022-0 Yes Take by [facility] Acid -17 mouth. [place] (VITAMIN C) 11:24: of 1000 MG 15 Medicin TABS e Zinc 50 MG 2022-0 Yes [facility] CAPS 4-17 College 11:24: of 15 Medicin e PAPAYA 2022-0 Yes Take by [facility] ENZYME OR 4-17 mouth. 3 Misaelg e 11:24: tablets of 15 with each Medicin meal e Glucosamine 2022-0 Yes Apply [facility] Sulfate-MSM 4-17 topically. Co llege (MSM-GLUCOS 11:24: of AMINE EX) 15 Medicin e ibuprofen 2022-0 Yes 400mg Take 400 [place] bart 100 MG TABS 4-17 mg by [place] 11:24: mouth of 15 daily as Medicin needed. e hydroxychlo 2022-0 Yes Take 300 [facility] roquine 4-17 mg daily [place] (PLAQUINIL) 00:00: (1.5 of 200 MG 00 pills). Medicin tablet e tizanidine 2022-0 Yes 4mg Take 1 [facility] (ZANAFLEX) 4-17 Tablet by Sana ege 4 MG tablet 00:00: mouth of 00 nightly as Medicin needed. e ibuprofen 2022-0 Yes 400mg Take 400 [place] bart 100 MG TABS 4-03 mg by [place] 09:57: mouth of 36 daily as Medicin needed. e hydroxychlo 2022-0 Yes 200mg Take 1 [place] bart roquine 4-03 Tablet by [place] (PLAQUINIL) 09:56: mouth two o f 200 MG 59 times Medicin tablet daily. e Glucosamine 2022-0 Yes Apply [facility] Sulfate-MSM 4-03 topically. Co llege (MSM-GLUCOS 09:56: of AMINE EX) 59 Medicin e dicyclomine 2022-0 Yes 20mg Take 1 [facility] (BENTYL) 20 4-03 Tablet by Col lege MG tablet 09:26: mouth of 45 every 6 Medicin hours. e Saccharomyc 2022-0 Yes Take by [place] bart es 4-03 mouth. 1 [place] boulardi 09:26: tablet of 250 MG CAPS 45 daily Medicin e Ascorbic 2022-0 Yes Take by [facility] Acid 4-03 mouth. [place] (VITAMIN C) 09:26: of 1000 MG 45 Medicin TABS e Zinc 50 MG 2022-0 Yes [facility] CAPS 4-03 [place] 09:26: of 45 Medicin e PAPAYA 2022-0 Yes Take by [facility] ENZYME OR 4-03 mouth. 3 Colleg e 09:26: tablets of 45 with each Medicin meal e cyanocobala Yes cyanocobal [facility] min 1000 4-03 russ (vit Colleg e MCG/ML 09:09: B-12) of injection 01 1,000 Medicin mcg/mL e injection solution Vitamin 2022-0 Yes 1{capsu Take 1 [facility] D-Vitamin K 4-03 le} capsule by Co otoniel (K2 PLUS 09:09: mouth of D3) 01 daily. Medicin 100-1000 e MCG-UNIT TABS maalox/diph 2022- Yes [id number] 15mL Take 15 mL Univers enhydrAMINE 2-02 09-05 by mouth ity of :lidocaine2 00:00: 05:59 in the [place] as % viscous 00 :00 morning Medical 1:1:1 Susp and 15 mL Bran ch suspension in the evening. Do all this for 5 days. maalox/diph 2022- Yes [id number] 15mL Take 15 mL Univers enhydrAMINE 2-02 09-05 by mouth ity of :lidocaine2 00:00: 05:59 in the [place] as % viscous 00 :00 morning Medical 1:1:1 Susp and 15 mL Bran ch suspension in the evening. Do all this for 5 days. hydrOXYchlo Yes Take by Uni vers roQUINE 200 1- mouth. ity of mg tablet 14:41: Medical Branch diclofenac 2022-0 Yes diclofenac U nivers 75 mg EC 1- sodium 75 ity of tablet 14:41: mg tablet,[facility] ayed Branch release hydrOXYchlo Yes Take by Uni vers roQUINE 200 1-07 mouth. ity of mg tablet 14:41: Medical Branch diclofenac 2022-0 Yes diclofenac U nivers 75 mg EC 1- sodium 75 ity of tablet 14:41: mg tablet,[facility] ayed Branch release hydrOXYchlo Yes Take by Uni vers roQUINE 200 1- mouth. ity of mg tablet 14:41: Medical Branch diclofenac 2022-0 Yes diclofenac U nivers 75 mg EC 1- sodium 75 ity of tablet 14:41: mg tablet,[facility] ayed Branch release hydrOXYchlo 2023-0 Yes Take by Uni vers roQUINE 200 06-15 mouth. ity of mg tablet 14:41: Medical Branch diclofenac 2022-0 Yes diclofenac U nivers 75 mg EC 06-15 sodium 75 ity of tablet 14:41: mg tablet,del Medical ayed Branch release azithromyci 2022-0 Yes [id number] 250mg Take 1 Univers n 1-07 tablet by ity of (ZITHROMAX) 00:00: mouth in [place] 250 mg 00 the Medical tablet morning. Branch azithromyci 2022-0 Yes [id number] 250mg Take 1 Univers n 1-07 tablet by ity of (ZITHROMAX) 00:00: mouth [place] 250 mg 00 the Medical tablet morning. Branch azithromyci 2022-0 Yes [id number] 250mg Take 1 Univers n 1-07 tablet by ity of (ZITHROMAX) 00:00: mouth [place] 250 mg 00 the Medical tablet morning. Branch azithromyci 2022-0 Yes [id number] 250mg Take 1 Univers n 1-07 tablet by ity of (ZITHROMAX) 00:00: mouth [place] 250 mg 00 the Medical tablet morning. Branch tizanidine 0 Yes TAKE ONE [facility] (ZANAFLEX) 06-14 (1) [place] 4 MG tablet 00:00: TABLET(S) o f 00 BY MOUTH Medicin THREE e TIMES A DAY NEEDED FOR NECK SPASMS. tizanidine 0 2022- No [facility] (ZANAFLEX) 06-14 04-17 [place] 4 MG tablet 00:00: 00:00 of 00 :00 Medicin e clobetasol 2021-0 Yes [id number] Apply [facility] (Temovate) 803 topically Heal th 0.05 % 00:00: to ointment 00 affected area on wrist twice daily for up to 2 weeks, then repeat as needed for flares. methotrexat 2021-0 Yes [id number] Take 6 [facility] e 2.5 MG 8-03 pills by Health tablet 00:00: mouth 00 every Friday (3 in morning, 3 at night) leucovorin 2021-0 Yes [id number] Take with [facility] (Wellcovori 8-03 a full Health n) 10 MG 00:00: glass of tablet 00 water. Take the next day after taking methotrexa te. ketorolac 2021- No [id number] 30mg Un stacey (TORADOL) 11-2620 ity of injection 21:30: 20:27 [place] 30 mg 00 :00 Medical Branch ondansetron 2021- No [id number] 8mg Univers (ZOFRAN-ODT 11-26 ity of ) 21:30: 20:27 [place] disintegrat 00 :00 Medical ing tablet Branch 8 mg ondansetron 2021- No [id number] 8mg 8 mg, Univers (ZOFRAN-ODT 11-26 Oral, ity of ) 21:30: 20:27 ONCE, 1 [place] disintegrat 00 :00 dose, On Medi eryn ing tablet Mon Branch 8 mg 11/26/21 at 1630, Routine ketorolac 2021- No [id number] 30mg 30 mg, Univers (TORADOL) 11-26 Intramuscu ity of injection 21:30: 20:27 lar, ONCE, [place] 30 mg 00 :00 1 dose, On Medical Mon Branch 11/26/21 at 1630, Routine ondansetron Yes [id number] 4mg Take 1 Univers 4 mg 6-20 tablet by ity of disintegrat 00:00: mouth [place] ing tablet 00 every 8 Medica l (eight) Branch hours as needed for Nausea and Vomiting (N/V). cyclobenzap Yes [id number] 5mg Take 1 Univers rine 5 mg 6-20 4 tablet by ity o f tablet 00:00: mouth at [place] 00 bedtime. Medical Branch ondansetron Yes [id number] 4mg Take 1 Univers 4 mg 6-20 tablet by ity of disintegrat 00:00: mouth [place] ing tablet 00 every 8 Medica l (eight) Branch hours as needed for Nausea and Vomiting (N/V). cyclobenzap Yes [id number] 5mg Take 1 Univers rine 5 mg 6-20 4 tablet by ity o f tablet 00:00: mouth at [place] 00 bedtime. Medical Branch ondansetron 2022-0 Yes [id number] 4mg Take 1 Univers 4 mg 6-20 tablet by ity of disintegrat 00:00: mouth [place] ing tablet 00 every 8 Medica l (eight) Branch hours as needed for Nausea and Vomiting (N/V). cyclobenzap 2021-0 Yes [id number] 5mg Take 1 Univers rine 5 mg 6-20 4 tablet by ity o f tablet 00:00: mouth at [place] 00 bedtime. Medical Branch ondansetron 2021-0 Yes [id number] 4mg Take 1 Univers 4 mg 6-20 tablet by ity of disintegrat 00:00: mouth [place] ing tablet 00 every 8 Medica l (eight) Branch hours as needed for Nausea and Vomiting (N/V). cyclobenzap 2021-0 Yes [id number] 5mg Take 1 Univers rine 5 mg 6-20 4 tablet by ity o f tablet 00:00: mouth at [place] 00 bedtime. Medical Branch ondansetron 2021-0 Yes [id number] 4mg Take 1 Univers 4 mg 6-20 tablet by ity of disintegrat 00:00: mouth [place] ing tablet 00 every 8 Medica l (eight) Branch hours as needed for Nausea and Vomiting (N/V). cyclobenzap 2021-0 Yes [id number] 5mg Take 1 Univers rine 5 mg 6-20 4 tablet by ity o f tablet 00:00: mouth at [place] 00 bedtime. Medical Branch leucovorin 2021- No [id number] Take with [facility] (Wellcovori 11-14 a full Healt h n) 10 MG 00:00: 00:00 glass of tablet 00 :00 water. Take the next day after taking methotrexa te. methotrexat 2021- No [id number] Take 6 UT e 2.5 MG 11-14 pills by Health tablet 00:00: 00:00 mouth 00 :00 every Friday (3 in morning, 3 at night) traZODone 2021-2021- No [id number] 50mg Take 1 U T (Desyrel) 11-14 tablet (50 Hea lth 50 MG 00:00: 00:00 mg total) tablet 00 :00 by mouth every night. Ok to split into quarters leucovorin 2021- No [id number] Take with [facility] (Wellcovori 11-14 a full Healt h n) 10 MG 00:00: 00:00 glass of tablet 00 :00 water. Take the next day after taking methotrexa te. methotrexat No [id number] Take 6 UT e 2.5 MG 11-14 pills by Health tablet 00:00: 00:00 mouth 00 :00 every Friday (3 in morning, 3 at night) traZODone No [id number] 50mg Take 1 U T (Desyrel) 11-14 tablet (50 Hea lth 50 MG 00:00: 00:00 mg total) tablet 00 :00 by mouth every night. Ok to split into quarters folic acid No [id number] 1mg QD Take 1 UT (Folvite) 1 09-12 4107 tablet (1 He alth MG tablet 00:00: 00:00 mg total) 00 :00 by mouth 1 (one) time each day. folic acid No [id number] 1mg QD Take 1 UT (Folvite) 1 09-12 4107 tablet (1 He alth MG tablet 00:00: 00:00 mg total) 00 :00 by mouth 1 (one) time each day. folic acid No [id number] 1mg QD Take 1 UT (Folvite) 1 09-12 4107 tablet (1 He alth MG tablet 00:00: 00:00 mg total) 00 :00 by mouth 1 (one) time each day. methotrexat No [id number] Take 6 UT e 2.5 MG 09-12 pills by Health tablet 00:00: 00:00 mouth 00 :00 every friday methotrexat No [id number] Take 6 UT e 2.5 MG 09-12 pills by Health tablet 00:00: 00:00 mouth 00 :00 every friday methotrexat No [id number] Take 2 UT e 2.5 MG 07-05 pills by Health tablet 00:00: 00:00 mouth 00 :00 every friday No known 2020-0 No Univers medications 03-07 ity of 16:11: [address] No known 2020-0 No Univers medications 03-07 ity of 16:11: [address] No known 2020-0 No Univers medications 03-07 ity of 16:11: [address] No known 2020-0 No Univers medications 03-07 ity of 16:11: [address] No known 2020-0 No Univers medications 03-07 ity of 16:11: [address] cetirizine Yes 10mg QD Take 10 mg M ethodi (ZyrTEC) 10 3-[address] MG tablet 13:46: daily. Hospit a 00 l hydrOXYchlo Yes Q.5D Take by Met hodjoe roQUINE 3-[address] (PLAQUENIL) 13:46: (two) Hospi ta 200 mg 00 times a l tablet day. calcium Yes 1{tbl} QD Take 1 Method i citrate-vit 3-15 tablet by russ D3 13:46: mouth Hospita (CITRACAL+D 00 daily. l ) 315 mg-5 mcg (200 unit) per tablet vitamin Yes 1{capsu QD Take 1 Metho di D3-vitamin 3-15 le} capsule by K2, MK4, 13:46: mouth Hospita 1,000-100 00 daily. l unit-mcg tablet omega Yes 1{capsu Q.[id number] Take 1 M ethodi 3-dha-epa-f 3-15 le} [id number] capsule by lydia oil 13:46: 3D mouth 3 Hospita 100-160-1,0 00 (three) l 00 mg times a capsule day. estradioL Yes [id number] Apply one Methodi (ESTRACE) 3-[address] 0.01 % (0.1 00:00: nightly to Hospita mg/gram) 00 outer 1/3 l vaginal vagina cream with fingertip method for two weeks then only twice a week (like , Fri) glutamine Yes Natural Metho di powder 8-[address] powder 19:47: added to Hospita 08 water l METHYLSULFO Yes 1{dose} QD Take 1 M ethodi NYLMETHANE 8-[address] (MSM ORAL) 19:47: mouth Hospit a 08 daily. l Powder- 1 dose daily MULTIVITAMI Yes 1{dose} QD Take 1 M ethodi N ORAL 8-[address] 19:47: mouth Hospita 08 daily. 2 l tablespoon s daily liquid UNABLE TO Yes 4{capsu Q.5D Take 4 Met hodi FIND 8-20 le} capsules st 19:47: by mouth 2 Hospita 08 (two) l times a day. Tumeric CYANOCOBALA Yes 1{dose} Q7D Inject 1 Methodi MIN, 8-[address] VITAMIN 19:47: directed Hospit a B-12, 08 once a l (VITAMIN week. B-12 INJ) acetaminoph Yes 325mg Q6H Take 325 M ethodi en 8-[address] (TYLENOL) 19:47: mouth Hospita 325 MG 08 every 6 l tablet (six) hours as needed for fever. Vital Signs Vital Name Observation Time Observation Value Comments Source Systolic blood 2022-09-23 16:24:00 112 mm[Hg] [facility] Medicine Diastolic blood 2022-09-23 16:24:00 71 mm[Hg] [facility] Medicine Heart rate 2022-09-23 16:24:00 80 /min [facility] Body temperature 2022-09-23 16:24:00 36.39 Sugar [facility] Respiratory rate 2022-09-23 16:24:00 16 /min [facility] Body height 2022-09-23 16:24:00 157.5 cm [facility] Body weight 2022-09-23 16:24:00 61.145 kg [facility] BMI 2022-09-23 16:24:00 24.66 kg/m2 [facility] Oxygen saturation in 2022-09-23 16:24:00 99 /min [facility] Arterial blood by [facility] Pulse oximetry Systolic blood 2022-09-09 14:09:00 121 mm[Hg] [facility] pressure Medicine Diastolic blood 2022-09-09 14:09:00 75 mm[Hg] [facility] Medicine Heart rate 2022-09-09 14:09:00 99 /min [facility] Body temperature 2022-09-09 14:09:00 36.78 Sugar [facility] Body height 2022-09-09 14:09:00 157.5 cm [facility] Body weight 2022-09-09 14:09:00 59.693 kg [facility] BMI 2022-09-09 14:09:00 24.07 kg/m2 [facility] Oxygen saturation in 2022-09-09 14:09:00 100 /min [facility] Arterial blood by [facility] Pulse oximetry Systolic blood 2022-08-22 17:54:00 113 mm[Hg] Univer sity of [facility] [place] Diastolic blood 2022-08-22 17:54:00 74 mm[Hg] Unive rsity of pressure [place] [facility] [place] Heart rate 2022-08-22 17:53:00 99 /min Universi ty of [place] [facility] [place] Body temperature 2022-08-22 17:53:[address] [facility] [place] [place] ersity of [place] [facility] Respiratory rate 2022-08-22 17:53:00 17 /min Univ ersity of [place] [facility] Body height 2022-08-22 17:53:00 158.8 cm Universi ty of [place] [facility] Body weight 2022-08-22 17:53:00 61.417 kg Universi ty of [place] [facility] BMI 2022-08-22 17:53:00 24.37 kg/m2 Universi ty of [place] [facility] Oxygen saturation in 2022-08-22 17:53:00 99 /min [facility] Arterial blood by [facility] Pulse oximetry Branch Systolic blood 2022-08-05 18:25:00 121 mm[Hg] Univer sity of pressure [place] [facility] Diastolic blood 2022-08-05 18:25:00 85 mm[Hg] Unive rsity of pressure [place] [facility] Heart rate 2022-08-05 18:25:00 97 /min Universi ty of [place] [facility] Body temperature 2022-08-05 18:25:00 37.06 Sugar Univ ersity of [place] [facility] Respiratory rate 2022-08-05 18:25:00 16 /min Univ ersity of [place] [facility] Body height 2022-08-05 18:25:00 158.8 cm Universi ty of [place] [facility] Body weight 2022-08-05 18:25:00 60.555 kg Universi ty of [place] [facility] BMI 2022-08-05 18:25:00 24.03 kg/m2 Universi ty of [place] [facility] Oxygen saturation in 2022-08-05 18:25:00 97 /min University of Arterial blood by [facility] Pulse oximetry Branch Systolic blood 2022-06-15 20:44:00 117 mm[Hg] Univer sity of pressure [place] [facility] Diastolic blood 2022-06-15 20:44:00 74 mm[Hg] Unive rsity of pressure [place] [facility] Heart rate 2022-06-15 20:44:00 89 /min Universi ty of [place] [facility] Body temperature 2022-06-15 20:44:00 37.17 Sugar Univ ersity of [place] [facility] Respiratory rate 2022-06-15 20:44:00 17 /min Univ ersity of [place] [facility] Body height 2022-06-15 20:44:00 158.8 cm Universi ty [facility] [place] [facility] Body weight 2022-06-15 20:44:00 59.875 kg Universi ty of [place] [facility] BMI 2022-06-15 20:44:00 23.76 kg/m2 Universi ty of [place] [facility] Oxygen saturation in 2022-06-15 20:44:00 100 /min University of Arterial blood by [facility] Pulse oximetry Branch Systolic blood 2021-11-26 20:11:00 132 mm[Hg] Univer sity of pressure [place] [facility] Diastolic blood 2021-11-26 20:11:00 87 mm[Hg] Unive rsity of pressure [place] [facility] Heart rate 2021-11-26 20:11:00 120 /min Universi ty of [place] [facility] Body temperature 2021-11-26 20:11:00 36.78 Sugar Univ ersity of [place] [facility] Respiratory rate 2021-11-26 20:11:00 18 /min Univ ersity of [place] [facility] Body height 2021-11-26 20:11:00 157.5 cm Universi ty of [place] [facility] Body weight 2021-11-26 20:11:00 59.875 kg [facility] BMI 2021-11-26 20:11:00 24.14 kg/m2 [facility] Oxygen saturation in 2021-11-26 20:11:00 99 /min [facility] Arterial blood by [facility] Pulse oximetry Branch Respiratory rate 2021-03-07 21:08:00 18 /min [facility] Oxygen saturation in 2021-03-07 21:08:00 100 /min [facility] Arterial blood by [facility] Pulse oximetry Branch Procedures Procedure Date / Time Performing Clinician Source Performed POCT SARS-COV-2 ANTIGEN 2022-08-22 18:06:00 Flora Elizondo [facility] ([facility]) [facility] POCT MOLECULAR STREP 2022-08-22 17:56:00 Unknown, Attending [facility] POCT SARS-COV-2 ANTIGEN 2022-06-15 20:39:00 Mamta Flowers [facility] ([facility]) [facility] ASSIGNMENT OF BENEFITS 2021-11-26 20:02:56 Doctor Unassigned, No [facility] Name [facility] Branch COMPREHENSIVE METABOLIC 2021-10-17 13:56:00 Cristobal Coates H ealth PANEL CBC AND DIFFERENTIAL 2021-10-17 13:56:00 Cristobal Coates [facility] th Plan of Care Planned Activity Planned Date Details Comments Source Future Scheduled 2022-09-23 Screening for malignant [facility] Test 12:40:40 neoplasm of cervix of Medici ne (procedure) [code = [id number]] Future Scheduled 2022-09-23 ZOSTER VACCINE (1 of 2) [facility] Test 12:40:40 [code = ZOSTER VACCINE of Me dicine (1 of 2)] Future Scheduled 2022-09-23 FLU VACCINE > 6 MONTHS [employer] Test 12:40:40 [code = FLU VACCINE > 6 of M edicine MONTHS] Future Scheduled 2022-09-23 Screening for malignant [facility] Test 12:40:40 neoplasm of colon of Medicin e (procedure) [code = [id number]] Future Scheduled 2022-09-23 Screening for malignant [facility] [employer] Test 12:40:40 neoplasm of breast of Medici ne (procedure) [code = 099802266] Future Scheduled 2022-09-23 COVID-19 Vaccine (#1) [employer] [facility] 12:40:40 [code = COVID-19 of Medicine Vaccine (#1)] Future Scheduled 2022-09-23 TETANUS SHOT (ADULT) [place] [employer] Test 12:40:40 [code = TETANUS SHOT of Medi cine (ADULT)] Future Scheduled 2022-09-23 Human immunodeficiency [employer] Test 12:40:40 virus screening of Medicine (procedure) [code = 188179774] Future Scheduled 2022-09-23 Hepatitis C screening [employer] [facility] 12:40:40 (procedure) [code = of Medic ine 704759283] Future Scheduled 2022-09-23 FUNK (SM) ANTIBODY Ordered: [employer] 12:16:39 [code = 58224-8] 09/23/2022 of Medicine Future Scheduled 2022-09-13 COVID-19 VACCINE (#1) [facility] 04:58:27 [code = COVID-19 Hospital VACCINE (#1)] Future Scheduled 2022-09-13 Hepatitis C screening [facility] 04:58:27 (procedure) [code = Hospital 214077535] Future Scheduled 2022-09-13 Screening for malignant [facility] 04:58:27 neoplasm of cervix Hospital (procedure) [code = 089397801] Future Scheduled 2022-09-13 BREAST CANCER SCREENING [facility] 04:58:27 [code = BREAST CANCER Hospit al SCREENING] Future Scheduled 2022-09-13 COLONOSCOPY SCREENING [facility] 04:58:27 [code = COLONOSCOPY Hospital SCREENING] Future Scheduled 2022-09-13 SHINGLES VACCINES (1 of [facility] Test 04:58:27 2) [code = SHINGLES Hospital VACCINES (1 of 2)] Future Scheduled 2022-09-13 INFLUENZA VACCINE [code [facility] Test 04:58:27 = INFLUENZA VACCINE] Hospita l Future Scheduled 2022-09-09 Screening for malignant [facility] [employer] Test 12:35:43 neoplasm of colon of Medicin e (procedure) [code = 095395039] Future Scheduled 2022-09-09 Screening for malignant [facility] [employer] Test 12:35:43 neoplasm of breast of Medici ne (procedure) [code = 013048427] Future Scheduled 2022-09-09 COVID-19 Vaccine (#1) [facility] Test 12:35:43 [code = COVID-19 of Medicine Vaccine (#1)] Future Scheduled 2022-09-09 TETANUS SHOT (ADULT) [facility] Test 12:35:43 [code = TETANUS SHOT of Medi cine (ADULT)] Future Scheduled 2022-09-09 Human immunodeficiency B [facility] Test 12:35:43 virus screening of Medicine (procedure) [code = 114173877] Future Scheduled 2022-09-09 Hepatitis C screening [facility] Test 12:35:43 (procedure) [code = of Medic ine 317989723] Future Scheduled 2022-09-09 Screening for malignant [facility] Test 12:35:43 neoplasm of cervix of Medici ne (procedure) [code = 297615937] Future Scheduled 2022-09-09 ZOSTER VACCINE (1 of 2) [facility] Test 12:35:43 [code = ZOSTER VACCINE of Me dicine (1 of 2)] Future Scheduled 2022-09-09 FLU VACCINE > 6 MONTHS [facility] Test 12:35:43 [code = FLU VACCINE > 6 of M edicine MONTHS] Future Scheduled 2022-09-09 BETA-2 GLYCOPROTEIN Ordered: [facility] Test 10:11:30 ANTIBODIES [code = 09/09/2022 of Medici ne 1952-06] Future Scheduled 2022-09-09 CARDIOLIPIN ANTIBODIES Ordered: [facility] Test 10:11:30 [code = 06109] 09/09/2022 of Medicine Future Scheduled 2022-09-09 CCP AB (IGG/IGA) [code Ordered: [facility] Test 10:11:30 = 23799-7] 09/09/2022 of Medicine Future Scheduled 2022-09-09 SJOGREN'S SS-A AND SS-B Ordered: [facility] Test 10:11:30 ANTIBODIES [code = 09/09/2022 of Medici ne NOCPT] Future Scheduled 2022-09-09 OFFSET [employer] ANTIBODY [code = Ordered: [facility] Test 10:11:30 NOCPT] 09/09/2022 of Medicine Future Scheduled 2022-09-09 COMPLEMENT C3 AND C4 Ordered: [facility] Test 10:11:30 [code = NOCPT] 09/09/2022 of Medicine Future Scheduled 2022-09-09 DNA (DS) ANTIBODY, Ordered: [facility] r [employer] Test 10:11:30 CRITHIDIA IFA W/RX 09/09/2022 of Medici ne TITER [code = 6457-6] Future Scheduled 2022-09-09 CBC W/AUTO DIFF WITH Ordered: [facility] Test 10:11:30 PLATELETS [code = 09/09/2022 of Medicin e 82821-9] Future Scheduled 2022-09-09 SEDIMENTATION RATE Ordered: [facility] r [employer] Test 10:11:30 MODIFIED WESTERGREN 09/09/2022 of Medic ine [code = 4537-7] Future Scheduled 2022-09-09 COMPREHENSIVE METABOLIC Ordered: [facility] Test 10:11:30 PANEL [code = 95496-5] 09/09/2022 of Me dicine Future Scheduled 2022-09-09 C-REACTIVE PROTEIN Ordered: [facility] Test 10:11:30 [code = 1988-5] 09/09/2022 of Medicine Future Scheduled 2022-09-09 RANDOM URINE Ordered: [facility] Test 10:11:30 PROTEIN/CREATININE 09/09/2022 of Medici ne [code = 2890-2] Future Scheduled 2022-09-09 URINALYSIS, COMPLETE Ordered: [facility] Test 10:11:30 W/REFLEX TO CULTURE 09/09/2022 of Medic ine [code = 69178-8] Encounters Start End Encounter Admission Attending Care Care Encounter Source Date/Time Date/Time Type Type Clinicians Facility Department ID 2022-09-03 Outpatient [facility] [id number] [place] 10:53:02 [id number] [facility] 2022-08-01 Outpatient Lucas ABDULAZIZNYU [facility] [id number] Common 13:23:01 [facility] [id number] [facility] 2022-07-08 Outpatient [facility] [id number] [place] 09:11:00 [id number] [facility] 2022-03-27 Outpatient [facility] [id number] [place] 08:41:03 [id number] [facility] 2021-12-18 Outpatient LIZA, [facility] [id number] [place] 10:00:05 LUCA [id number] [facility] 2021-11-14 Outpatient WAYNE, [facility] [id number] [place] 10:22:34 DONNY [id number] [facility] 2021-11-08 [facility] [id number] 12-2 [place] 14:17:35 DONNY [id number] [facility] 2021-11-02 Outpatient [facility] [id number] [place] 13:26:02 [id number] [facility] 2021-09-12 [facility] [id number] 12-2 [place] 12:14:20 DONNY [id number] [facility] 2021-09-11 Outpatient [facility] [id number] [place] 06:02:36 [id number] [facility] 2021-09-05 [facility] [id number] [place] 16:41:29 DONNY [id number] [facility] 2021-08-29 Outpatient [facility] [id number] [place] 12:47:42 DONNY [id number] [facility] 2021-06-28 Outpatient [facility] [id number] [place] 12:33:59 DONNY [facility] 2022-09-23 2022-09-23 Office [facility], [facility] 1.2.840.114 [id number] [facility] 12:00:00 12:21:28 Visit Karol AMBULATOR 350.1.13.21 College Y 0.2.7.2.686 of [id number] Medi bailey 370 e 2022-09-09 2022-09-09 Outpatient [facility] [id number] [facility] 10:45:31 10:45:31 Colleg e of Medicin e 2022-09-09 2022-09-09 Outpatient [facility] [id number] [facility] 10:45:18 10:45:18 Colleg e of Medicin e 2022-09-09 2022-09-09 Outpatient [facility] [id number] [facility] 10:45:01 10:45:01 Colleg e of Medicin e 2022-09-09 2022-09-09 Office [facility], [facility] 1.2.840.114 [id number] [facility] 09:45:00 10:42:57 Visit Karol AMBULATOR 350.1.13.21 College Y 0.2.7.2.686 of [id number] Medi bailey 370 e 2022-08-22 2022-08-22 Urgent Flora Eliozndo [facility] .2.840 .114 [id number] Univers 12:40:00 13:00:00 Care Unknown, Attending HEALTH 350..13.10 ity of [place] 4.2.7.2.686 Jose as ROBERTO?BLEA [id number] [address] MEDICAL OFFICE [facility] 2022-08-22 2022-08-22 Outpatient R XIMENA [facility] [id number] Univers 12:40:00 12:40:00 FLORA chulamary o f [facility] 2022-08-05 2022-08-05 Urgent Keenan Sanchezsunny [facility] 1..840.114 [id number] Univers 12:20:00 12:40:00 Care Unknown, Attending HEALTH [facility]..13.10 ity of [place] 4.2.7.2.686 Jose as ROBERTO?BLEA [phone] [address] OFFICE [facility] 2022-08-05 2022-08-05 Outpatient R LAURA [facility] [id number] Univers 12:20:00 12:20:00 AGATA white [facility] 2022-08-05 2022-08-05 Telephone Laura [facility] 1.2.840.114 [id number] Univers 00:00:00 00:00:00 [place] [address]..13.10 it y of [place] 4.2.7.2.686 Jose as ROBERTO?BLEA [id number] [address] MEDICAL OFFICE [facility] 2022-06-15 2022-06-15 Outpatient R CELESTINE [facility] [id number] Univers 14:20:00 16:17:22 ONUR white [facility] 2022-06-15 2022-06-15 Urgent Onur Sprague [facility] .2.840.11 [id number] Univers 14:20:00 14:40:00 Care Unknown, Attending HEALTH 350..13.10 ity of [place] 4.2.7.2.686 Jose as ROBERTO?BLEA [id number] Me dical [address] MEDICAL OFFICE BUILDING 2022-04-10 2022-04-10 Outpatient [facility] [id number] [place] 10:00:00 10:00:00 DONNY Health 2022-01-09 2022-01-09 Office [facility] 4 1.2.840.114 [id number] [place] 09:30:00 10:39:03 Visit Donny 350.1.13.58 He alth 9.2.7.2.686 [id number] 1 2021-11-26 2021-11-26 [facility] [id number] Univers 15:20:00 15:25:28 BRIAN ity [facility] 2021-11-26 2021-11-26 [facility] 1.2.840.114 [id number] Univers 15:20:00 15:25:28 Care [facility] 350.1.13.10 it y of [place] 4.2.7.2.686 Jose as ROBERTO?BLEA [phone] [address] MEDICAL OFFICE BUILDING 2021-11-26 2021-11-26 Orders Doctor PRADO 1.2.840.114 [id number] Univers 00:00:00 00:00:00 Only Unassigned, MARY 350.1.13.10 ity of [place] [facility] 4.2.7.2.686 Jose as [phone] [address] 2021-11-14 2021-11-14 [facility] 1.2.840.114 [id number] [place] 11:00:00 12:46:01 Visit Donny 350.1.13.58 He alth 9.2.7.2.686 [id number] 1 2021-09-12 2021-09-12 Office [facility] 4 1.2.840.114 [id number] [place] 12:30:00 13:25:28 Visit Donny 350.1.13.58 He alth 9.2.7.2.686 [id number] 1 2021-07-27 2021-07-27 Letter EVE Flaherty 1.2.840.114 [id number] Univers 00:00:00 00:00:00 (Out) Kylah HERNANDEZ 350.1.13.10 it y of HOSPITAL 4.2.7.2.686 Jose as [id number] [address] 2021-07-26 2021-07-26 Outpatient R KING JENNA [facility] [id number] Univers 15:15:00 15:15:00 NEELA ity of [facility] 2021-07-26 2021-07-26 Laboratory Only, Ang Db Test [facility] 1.2.8 40.114 [id number] Univers 15:15:00 15:15:00 Only Neela Duvall [facility] 350.1.13.10 ity of [place] 4.2.7.2.686 Jose as ROBERTO?BLEA [id number] [address] MEDICAL OFFICE [facility] 2021-04-03 2021-04-03 Outpatient R CAROL [facility] [id number] Univers 00:00:00 00:00:00 ALDAIR Parsons [facility] 2021-03-08 2021-03-08 Letter EVE Flaherty 1.2.840.114 [id number] Univers 00:00:00 00:00:00 (Out) Kylah HERNANDEZ 350.1.13.10 it y [facility] 4.2.7.2.686 Jose as [phone] [address] 2021-03-07 2021-03-07 Urgent Agata Sanchez [facility] 1.2.840.114 [id number] Univers 16:01:33 16:21:33 Care Flora Elizondo [facility] 350.1.13.10 ity of [place] 4.2.7.2.686 Jose as Roberto?Blea [id number] [address] Medical Office Building 2021-03-07 2021-03-07 Outpatient R XIMENA [facility] [id number] Univers 16:20:00 16:20:00 FLORA schultz [facility] 2021-02-13 2021-02-13 Laboratory Only, Ang Db Test [facility] 1.2.8 40.114 [id number] Univers 09:53:42 10:08:42 Only Brian Rangel [facility] 350.1.13.10 ity of [place] 4.2.7.2.686 Jose as Roberto?Blea [id number] [address] Medical Office [facility] 2021-02-13 2021-02-13 Outpatient R JUAN CARLOS, [facility] [id number] Univers 10:00:00 10:00:00 BRIAN ity [facility] 2021-02-02 2021-02-02 Letter Delmis Jaquez 1.2.840.114 [id number] Univers 00:00:00 00:00:00 (Out) MARY 350.1.13.10 it y of HOSPITAL 4.2.7.2.686 Jose as [id number] [address] 2021-02-02 2021-02-02 Letter EVE Flaherty 1.2.840.114 [id number] Univers 00:00:00 00:00:00 (Out) Kylah COSTELLOY 350.1.13.10 it y of [facility] 4.2.7.2.686 Jose as [phone] [address] 2021-02-01 2021-02-01 Laboratory Only, Ang Db Test [facility] 1.2.8 40.114 [id number] Univers 11:42:30 11:57:30 Only Unknown, [facility] Health 350.1.13.10 ity of [place] 4.2.7.2.686 Jose as Roberto?Blea [id number] [address] Medical Office [facility] 2021-02-01 2021-02-01 Outpatient R OTIS, [facility] [id number] Univers 11:50:00 11:50:00 ATTENDING ity of [facility] 2021-02-01 2021-02-01 Letter Doctor PRADO 1.2.840.114 [id number] Univers 00:00:00 00:00:00 (Out) Unassigned, MARY 350.1.13.10 ity of [place] HOSPITAL 4.2.7.2.686 Jose as [phone] [address] 2021-02-01 2021-02-01 Letter Doctor PRADO 1.2.840.114 [id number] Univers 00:00:00 00:00:00 (Out) Unassigned, MARY 350.1.13.10 ity of [place] HOSPITAL 4.2.7.2.686 [facility] as [phone] [place] [address] [address] 2020-09-04 2020-09-04 Outpatient [facility] [id number] [place] 00:00:00 00:00:[address] 2020-08-11 2020-08-11 Outpatient JARROD, [facility] [id number] [place] 00:00:00 00:00:00 KENJI [address] [facility] 2019-11-04 2019-11-04 Outpatient SALOMON, [facility] [id number] [place] 00:00:00 00:00:00 KARAN 066 Method i 2019-10-28 2019-10-28 Outpatient [facility] [id number] [place] 00:00:00 00:00:00 719 Method i 2019-09-03 2019-09-03 Outpatient Raju_P [facility] [id number] [place] 03:48:00 03:48:00 0327 [facility] Results Test Description Test Time Test Comments Results Result Comments Source POCT SARS-COV-2 ANTIGEN (BINAX NOW) 2022-08-22 18:06:00 Test Item Value Reference Range Interpretation Comme nts POCT SARS-COV-2 ANTIGEN (test code = 39454-0) Not Detected Not Dete cted On board controls acceptable with C Line (test code = Yes 3574) [facility] MOLECULAR [id number] 18:03:51 Test Item Value Reference Range Interpretation Comments POCT Molecular Strep (test code = Negative Negative 27868-8) Lab Interpretation (test code = Normal 73583-5) [facility] SARS-COV-2 ANTIGEN (BINAX NOW)2022-06-15 20:54:00 Test Item Value Reference Range Interpretation Comments POCT SARS-COV-2 ANTIGEN (test Not Detected Not Detected code = 77569-4) On board controls acceptable Yes with C Line (test code = 3574) Lab Interpretation (test code = Normal 34670-9) [facility] [id number] 07:00:00 Test Item Value Reference Range Interpretation Comments WHITE BLOOD CELL 3.9 See_Comment [Automated COUNT (test code = message] The 6690-2) system which generated this result transmitted reference range : 3.8 - 10.8 Thousand/uL. Th e reference range was not used to interpret this result as normal/abnormal . RED BLOOD CELL COUNT 3.64 See_Comment L [Autom ated (test code = 789-8) message] The system which generated this result transmitted reference range : 3.80 - 5.10 Million/uL. The reference range was not used to interpret this result as normal/abnormal . HEMOGLOBIN (test 11.5 g/dL 11.7-15.5 L code = 718-7) HEMATOCRIT (test 33.2 % 35.0-45.0 L code = 4544-3) MCV (test code = 91.2 fL 80.0-100.0 787-2) MCH (test code = 31.6 pg 27.0-33.0 785-6) MCHC (test code = 34.6 g/dL 32.0-36.0 786-4) RDW (test code = 12.5 % 11.0-15.0 788-0) PLATELET COUNT (test 224 See_Comment [Autom ated code = 777-3) message] The system which generated this result transmitted reference range : 140 - 400 Thousand/uL. Th e reference range was not used to interpret this result as normal/abnormal . MPV (test code = 10.6 fL 7.5-12.5 776-5) ABSOLUTE NEUTROPHILS 2285 See_Comment [Autom ated (test code = 751-8) message] The system which generated this result transmitted reference range : 1500 - 7800 cells/uL. The reference range was not used to interpret this result as normal/abnormal . ABSOLUTE LYMPHOCYTES 870 See_Comment [Autom ated (test code = 731-0) message] The system which generated this result transmitted reference range : 850 - 3900 cells/uL. The reference range was not used to interpret this result as normal/abnormal . ABSOLUTE MONOCYTES 464 See_Comment [Automat ed (test code = 742-7) message] The system which generated this result transmitted reference range : 200 - 950 cells/uL. The reference range was not used to interpret this result as normal/abnormal . ABSOLUTE EOSINOPHILS 211 See_Comment [Autom ated (test code = 711-2) message] The system which generated this result transmitted reference range : 15 - 500 cells/uL. The reference range was not used to interpret this result as normal/abnormal . ABSOLUTE BASOPHILS 70 See_Comment [Automat ed (test code = 704-7) message] The system which generated this result transmitted reference range : 0 - 200 cells/u L. The reference range was not used to interpr et this result as normal/abnormal . NEUTROPHILS (test 58.6 % code = 770-8) LYMPHOCYTES (test 22.3 % code = 736-9) MONOCYTES (test code 11.9 % = 5905-5) EOSINOPHILS (test 5.4 % code = 713-8) BASOPHILS (test code 1.8 % REPORT = 706-2) COMMENT:FASTING :Y ES RAC (test code = Performing RAC) Organization Information: ? ?Site ID: RGA ? ?Name: [employer] [facility] ? ?Address: [address] [place] [phone] ? ?Director: FLOR PEARCE MD Lab Interpretation Abnormal (test code = 29071-5) [facility] [id number] 07:00:00 Test Item Value Reference Interpretation Comments Range GLUCOSE (test code 95 mg/dL 65-99 ? Fasting = 2345-7) reference inter henny UREA NITROGEN (BUN) 15 mg/dL 7-25 (test code = 3094-0) CREATININE (test 0.65 mg/dL 0.50-1.05 For patient s >49 code = 2160-0) years of age, the reference limit for Creatinine is approximately 1 3% higher for peopleidentifie d as -Nuria n. eGFR NON- 99 See_Comment [Automated message] ARMENIAN (test code The syst em which = 19553-9) generated this result transmit tammy reference range : > OR = 60 mL/min/1.73m2. The reference range was not used to interpret this result as normal/abnormal . eGFR 114 See_Comment [Automated mes juan m] ARMENIAN (test code The syst em which = 37854-2) generated this result transmit tammy reference range : > OR = 60 mL/min/1.73m2. The reference range was not used to interpret this result as normal/abnormal . BUN/CREATININE NOT APPLICABLE See_Comment [Automated message] RATIO (test code = The syste m which 3097-3) generated this result transmit tammy reference range : 6 - 22 (calc). The reference range was not used to interpret this result as normal/abnormal . SODIUM (test code = 138 mmol/L 942-694 5155-2) POTASSIUM (test 4.3 mmol/L 3.5-5.3 code = 2823-3) CHLORIDE (test code 102 mmol/L 98-110 = 2075-0) CARBON DIOXIDE 33 mmol/L 20-32 H (test code = 8-9) CALCIUM (test code 9.6 mg/dL 8.6-10.4 = 65043-2) PROTEIN, TOTAL 6.9 g/dL 6.1-8.1 (test code = 2885-2) ALBUMIN (test code 4.0 g/dL 3.6-5.1 = 1751-7) GLOBULIN (test code 2.9 See_Comment [Automa tammy message] = 55925-1) The system whic h generated this result transmit tammy reference range : 1.9 - 3.7 g/dL (eryn c). The reference r gina was not used to interpret this result as normal/abnormal . ALBUMIN/GLOBULIN 1.4 See_Comment [Automated message] RATIO (test code = The syste m which 1759-0) generated this result transmit tammy reference range : 1.0 - 2.5 (calc). T he reference range was not used to interpret this result as normal/abnormal . BILIRUBIN, TOTAL 0.5 mg/dL 0.2-1.2 (test code = 1975-2) ALKALINE 66 U/L 37-153 PHOSPHATASE (test code = 6768-6) AST (test code = 16 U/L 10-35 1920-8) ALT (test code = 11 U/L 6-29 1742-6) RAC (test code = Performing RAC) Organization Information: ? ?Site ID: [facility]GA ? ?Name: [employer] [facility] ? ?Address: [address] [place] [phone] ? ?Director: FLOR PEARCE MD Lab Interpretation Abnormal (test code = 18315-3) [facility]
[2022-10-21 11:00] LABS: Absolute Lymphocytes (CBC) 1.6 K/uL (0.7-4.9); Hematocrit 36.2 % (36.0-45.0); Lymphocytes % 18.3 % (15.3-44.8); MCV 89.6 fL (80-100); MPV 7.4 fL (7.6-11.3); RBC Red Blood Cell Count 4.04 M/uL (3.86-4.86)
[2022-10-21 11:18] LABS: Albumin 3.8 g/dL (3.4-5.0); Bilirubin Total 0.5 mg/dL (0.2-1.0); Potassium 3.6 mEq/L (3.5-5.1); Protein, Total 7.5 g/dL (6.4-8.2)
[2022-10-21 11:31] LABS: Specific Gravity 1.016 (1.005-1.030); Urine Bacteria <20 /HPF (<20); Urine Bilirubin NEGATIVE (Negative); Urine Blood 2+ (Negative); Urine Clarity Clear (Clear); Urine Color Yellow (Yellow); Urine Glucose NEGATIVE (Negative); Urine Mucus 1+ /HPF (None Seen); Urine Protein 1+ (Negative); Urine Urobilinogen Normal (Normal); Urine pH 6.5 (5.0-7.0)
[2022-10-21] MEDS ORDERED: ONDANSETRON 4 MG/2 ML VIAL ONE (11:36)
--- NOTE | 2022-10-21 12:09 | RAD REPORT ---
EXAM DESCRIPTION: CTAbdomen Pelvis W Contrast - 10/21/2022 11:40 am CLINICAL HISTORY: mid abd pain COMPARISON: Abdomen Pelvis W Contrast dated 01/26/2022; Abdomen Pelvis W Contrast dated 11/20/2018 TECHNIQUE: CT of the abdomen and pelvis was performed. All CT scans are performed using dose optimization technique as appropriate and may include automated exposure control or mA/KV adjustment according to patient size. FINDINGS: Lower chest: No acute abnormality. Liver: Too small to characterize liver lesions which are likely benign. Biliary: No biliary ductal dilatation. Stomach: No significant focal abnormality. Duodenum: No significant focal abnormality. Pancreas: No significant abnormality. Spleen: No significant abnormality. Adrenal: No suspicious lesions. Kidney/ureter: No hydronephrosis. No renal calculi. Retroperitoneum: No retroperitoneal adenopathy. Vascular: No aneurysm. Bowel: Colonic wall thickening which extends from the descending colon to the rectum. Appendix not id entified. No secondary signs of acute appendicitis.. It may be surgically absent. Peritoneum: No ascites or free air. Bladder: Grossly unremarkable. Reproductive: Hysterectomy Bones: No acute fracture. Other: n/a IMPRESSION: Colitis extending from the descending colon to the rectum. No bowel obstruction. Nonvisu alized appendix. No secondary signs of acute appendicitis.
--- NOTE | 2022-10-21 12:26 | ER ---
Nurse's Notes [facility] Name: Xiomara Russ Age: 57 yrs Sex: Female : 1965 Arrival Date: 10/21/2022 Time: 09:33 Bed 15 Private MD: Diagnosis: Left sided colitis without complications Presentation: 10/21 09:48 Chief complaint: Patient states: Abdominal pain, periumbilical that started as lower nj1 abdominal pain about a week ago along with nausea. Not really eating since Friday. Coronavirus screen: Vaccine status: Patient reports receiving the 2nd dose of the covid vaccine. Ebola Screen: No symptoms or risks identified at this time. Initial Sepsis Screen: Does the patient meet any 2 criteria? HR > 90 bpm. No. Patient's initial sepsis screen is negative. Does the patient have a suspected source of infection? No. Patient's initial sepsis screen is negative. Risk Assessment: Do you want to hurt yourself or someone else? Patient reports no desire to harm self or others. Onset of symptoms was October 13, 2022. 09:48 Method Of Arrival: Ambulatory nj1 09:48 Acuity: EFFIE 3 nj1 Historical: - Allergies: 09:52 Bactrim; nj1 09:52 PENICILLINS; nj1 - PMHx: 09:52 Migraines; Kidney stones; Hypothyroidism; Diverticulitis; Cdiff; nj1 - PSHx: 09:52 Bladder lift; Tummy tuck; Hysterectomy; nj1 - Immunization history:: Client reports receiving the 2nd dose of the Covid vaccine. - Social history:: Smoking status: Patient denies any tobacco usage or history of. - Family history:: not pertinent. - Hospitalizations: : No recent hospitalization is reported. Screenin:15 [facility] ED Fall Risk Assessment (Adult) History of falling in the last 3 months, ko1 including since admission No falls in past 3 months (0 pts) Confusion or Disorientation No (0 pts) Intoxicated or Sedated No (0 pts) Impaired Gait No (0 pts) Mobility Assist Device Used No (0 pt) Altered Elimination No (0 pt) Score/Fall Risk Level 0 - 2 = Low Risk Oriented to surroundings, Maintained a safe environment, Educated pt \T\ family on fall prevention, incl call for assistance when getting out of bed, Assessed \T\ reinforced patient's understanding of fall precautions, Provided non-skid footwear, Hourly rounding (assess needs \T\ fall precautionary measures) done, Used ambulatory aids as needed (educated on \T\ assisted with), Used gait belt as appropriate. Abuse screen: Denies threats or abuse. Denies injuries from another. Nutritional screening: No deficits noted. Tuberculosis screening: No symptoms or risk factors identified. Assessment: 11:15 General: Appears in no apparent distress. comfortable, Behavior is calm, cooperative, ko1 appropriate for age. Pain: Complains of pain in abdomen. Neuro: No deficits noted. Cardiovascular: No deficits noted. Respiratory: No deficits noted. GI: Bowel sounds present X 4 quads. Abd is soft and non tender. : No deficits noted. EENT: No deficits noted. Derm: No deficits noted. Musculoskeletal: No deficits noted. No signs and/or symptoms reported regarding the musculoskeletal system. 12:15 Reassessment: Patient appears in no apparent distress at this time. Patient and/or eh3 family updated on plan of care and expected duration. Pain level reassessed. Patient is alert, oriented x 3, equal unlabored respirations, skin warm/dry/pink. Vital Signs: 09:48 BP 112 / 72; Pulse 103; Resp 17; Temp 98(O); Pulse Ox 100% ; Weight 60.78 kg; Height 5 nj1 ft. 2 in. ; Pain 6/10; 09:48 Body Mass Index 24.51 (60.78 kg, 157.48 cm) nj1 09:48 Pain Scale: Adult nj1 ED Course: 09:35 Patient arrived in ED. rg4 09:36 Deepak Camargo MD is Attending Physician. rn 09:52 Triage completed. nj1 09:53 Arm band placed on right wrist. nj1 10:49 Masha Sloan, RN is Primary Nurse. iw 10:50 Inserted saline lock: 22 gauge in right antecubital area, using aseptic technique. iw 11:15 Patient has correct armband on for positive identification. Bed in low position. Call ko1 light in reach. Pulse ox on. NIBP on. 11:42 CT Abd/Pelvis - IV Contrast Only In Process Unspecified. EDMS 13:12 No provider procedures requiring assistance completed. IV discontinued, intact, eh3 bleeding controlled, No redness/swelling at site. Pressure dressing applied. Administered Medications: 11:36 Drug: Ondansetron IVP 4 mg Route: IVP; Site: right antecubital; ko1 13:07 Follow up: Response: No adverse reaction eh3 12:58 Drug: Ciprofloxacin PO 500 mg Route: PO; eh3 13:11 Follow up: Response: Medication administered at discharge. eh3 12:58 Drug: metroNIDAZOLE PO 500 mg Route: PO; eh3 13:11 Follow up: Response: Medication administered at discharge. 3 Medication: 13:12 VIS not applicable for this client. 3 Outcome: 12:25 Discharge ordered by . rn 13:12 Discharged to home ambulatory. 3 13:12 Condition: stable 13:12 Discharge instructions given to patient, Instructed on discharge instructions, follow up and referral plans. medication usage, Demonstrated understanding of instructions, follow-up care, medications, Prescriptions given X 5 13:13 Patient left the ED. 3 Signatures: Dispatcher [employer] EDMS Masha Sloan RN RN iw Deepak Camargo MD MD rn Garcia, Rubi 4 Quin Romero RN RN 3 Melodie Chacon RN RN ko1 Shaista Villalobos RN RN nj1
--- NOTE | 2022-10-21 12:26 | EDPHYS ---
Physician Documentation [facility] Name: Xiomara Russ Age: 57 yrs Sex: Female : 1965 Arrival Date: 10/21/2022 Time: 09:33 Bed 15 Private MD: ED Physician Deeapk Camargo HPI: 10/21 10:39 This 57 yrs old Female presents to ER via Ambulatory with complaints of rn Abdominal Pain. 10:39 The patient presents with abdominal pain in the periumbilical area. Onset: The rn symptoms/episode began/occurred 1.5 week(s) ago. The symptoms do not radiate. Associated signs and symptoms: Pertinent negatives: nausea and vomiting, blood in stools, chest pain, constipation, fever, hematuria, shortness of breath. The symptoms are described as crampy. Modifying factors: The symptoms are alleviated by nothing, the symptoms are aggravated by nothing. Severity of pain: At its worst the pain was moderate in the emergency department the pain is unchanged. The patient has experienced similar episodes in the past. The patient has been recently seen at an urgent care. Pt reports abd pain, mid and lower, for 1.5 weeks, has had before with multiple w/u including colonoscopy and EGD, without clear etiology. Reports went to urgent care, no diagnosis made, continued to bother her so came in today for eval.. Historical: - Allergies: 09:52 Bactrim; nj1 09:52 PENICILLINS; nj1 - PMHx: 09:52 Migraines; Kidney stones; Hypothyroidism; Diverticulitis; Cdiff; nj1 - PSHx: 09:52 Bladder lift; Tummy tuck; Hysterectomy; nj1 - Immunization history:: Client reports receiving the 2nd dose of the Covid vaccine. - Social history:: Smoking status: Patient denies any tobacco usage or history of. - Family history:: not pertinent. - Hospitalizations: : No recent hospitalization is reported. ROS: 10:39 Constitutional: Negative for fever, chills, and weight loss, Eyes: Negative for injury, rn pain, redness, and discharge, Cardiovascular: Negative for chest pain, palpitations, and edema, Respiratory: Negative for shortness of breath, cough, wheezing, and pleuritic chest pain, Abdomen/GI: + abd pain Back: Negative for injury and pain, MS/Extremity: Negative for injury and deformity, Skin: Negative for injury, rash, and discoloration, Neuro: Negative for headache, weakness, numbness, tingling, and seizure. Exam: 10:39 Constitutional: This is a well developed, well nourished patient who is awake, alert, rn and in no acute distress. Head/Face: Normocephalic, atraumatic. Cardiovascular: Tachycardic, regular. No pulse deficits. Respiratory: No increased work of breathing, no retractions or nasal flaring. Abdomen/GI: Soft, mild mid abd tenderness, no rebound Skin: Warm, dry MS/ Extremity: Pulses equal, no cyanosis. Neuro: Awake and alert, GCS 15 13:08 ECG was reviewed by the Attending Physician. rn Vital Signs: 09:48 BP 112 / 72; Pulse 103; Resp 17; Temp 98(O); Pulse Ox 100% ; Weight 60.78 kg; Height 5 nj1 ft. 2 in. ; Pain 6/10; 09:48 Body Mass Index 24.51 (60.78 kg, 157.48 cm) nj1 09:48 Pain Scale: Adult nj1 MDM: 09:36 Patient medically screened. rn 12:24 Differential diagnosis: appendicitis, bowel obstruction, diverticulitis, non-specific rn abd pain, colitis. Data reviewed: vital signs, nurses notes, lab test result(s), radiologic studies, CT scan, and as a result, I will discharge patient. Counseling: I had a detailed discussion with the patient and/or guardian regarding: the historical points, exam findings, and any diagnostic results supporting the discharge/admit diagnosis, lab results, radiology results, the need for outpatient follow up, to return to the emergency department if symptoms worsen or persist or if there are any questions or concerns that arise at home. Special discussion: Based on the patient's Hx, exam, and Dx evaluation, there is no indication for emergent surgery or inpatient Tx. It is understood by the patient/guardian that if the Sx's persist or worsen they need to return immediately for re-evaluation. I discussed with the patient/guardian in detail that at this point there is no indication for admission to the hospital. It is understood, however, that if the symptoms persist or worsen the patient needs to return immediately for re-evaluation. Based on the history and exam findings, there is no indication for further emergent testing or inpatient evaluation. I discussed with the patient/guardian the need to see the primary care provider for further evaluation of the symptoms. 10/21 09:46 Order name: CBC with Diff; Complete Time: 11:33 rn 10/21 09:46 Order name: CMP; Complete Time: 11:34 rn 10/21 09:46 Order name: Lipase; Complete Time: 11:34 rn 10/21 09:46 Order name: Urinalysis w/ reflexes; Complete Time: 11:34 rn 10/21 09:46 Order name: CT Abd/Pelvis - IV Contrast Only; Complete Time: 12:14 rn 10/21 09:46 Order name: EKG; Complete Time: 09:47 rn 10/21 09:46 Order name: IV Saline Lock; Complete Time: 10:49 rn 10/21 09:46 Order name: Labs collected and sent; Complete Time: 10:49 rn 10/21 09:46 Order name: EKG - Nurse/Tech; Complete Time: 11:51 rn EC:08 Rate is 89 beats/min. Rhythm is regular. QRS [place] is Normal. [place] interval is normal. QRS rn interval is normal. QT interval is normal. No Q waves. T waves are Normal. No ST changes noted. Clinical impression: Normal ECG. Interpreted by me. Reviewed by me. Administered Medications: 11:36 Drug: Ondansetron IVP 4 mg Route: IVP; Site: right antecubital; ko1 13:07 Follow up: Response: No adverse reaction eh3 12:58 Drug: Ciprofloxacin PO 500 mg Route: PO; eh3 13:11 Follow up: Response: Medication administered at discharge. eh3 12:58 Drug: metroNIDAZOLE PO 500 mg Route: PO; eh3 13:11 Follow up: Response: Medication administered at discharge. eh3 Disposition Summary: 10/21/22 12:25 Discharge Ordered Location: Home rn Problem: new rn Symptoms: have improved rn Condition: Stable rn Diagnosis - Left sided colitis without complications rn Followup: rn - With: Private Physician - When: As needed - Reason: Recheck today's complaints, Re-evaluation by your physician Discharge Instructions: - Discharge Summary Sheet rn - Colitis rn Forms: - Medication Reconciliation Form rn - Thank You Letter rn - Antibiotic sales management intern - Prescription Opioid Use rn Prescriptions: - ondansetron 4 mg Oral Tablet,disintegrating - take 1 tablet by ORAL route every 8-10 hours As needed as needed for nausea and rn vomiting; 12 tablet; Refills: 0, Product Selection Permitted - Cipro 500 mg Oral Tablet - take 1 tablet by ORAL route every 12 hours for 10 days; 20 tablet; Refills: 0, rn Product Selection Permitted - Diflucan 150 mg Oral Tablet - take 1 tablet by ORAL route one time for 3 days; 3 tablet; Refills: 0, Product rn Selection Permitted - Flagyl 500 mg Oral Tablet - take 1 tablet by ORAL route every 8 hours for 10 days; 30 tablet; Refills: 0, rn Product Selection Permitted - Tramadol 50 mg Oral Tablet - take 1 tablet by ORAL route every 8 hours as needed; 12 tablet; Refills: 0, rn Product Selection Permitted Signatures: Dispatcher [employer] Deepak Barbour MD MD rn Quin Romero RN RN eh3 Melodie Chacon RN RN ko1 Shaista Villalobos RN RN nj1
[2022-10-21] MEDS ORDERED: CIPROFLOXACIN HCL 500 MG TAB ONE (12:58)
[2022-10-21] MEDS ORDERED: metroNIDAZOLE 500 MG TABLET ONE (12:58)
[2022-10-21 13:45] VITALS: BP 112/72; TEMP 98; O2SAT 100
--- NOTE | 2022-10-22 07:48 | EKG ---
Test Date: 2022-10-21 Test Time: 11:47:02 Edge Burnisher Uppers: CORBIN MEASUREMENT RESULTS: Intervals: Rate: 89 DE: 156 QRSD: 72 QT: 372 QTc: 452 [place]: P: 69 DE: 156 QRS: 52 T: 55 INTERPRETIVE STATEMENTS: Normal sinus rhythm Normal ECG Compared to ECG 12/28/2015 12:00:29 No significant changes Electronically Signed On 10-22-22 07:46:20 CDT by rJ Rey
== END 2022-10-21 13:13 | disposition home or self-care (01) ==
LOC: ER 09:33
DX: K51.50 Left sided colitis without complications (principal); Z87.442 Personal history of urinary calculi; Z88.0 Allergy status to penicillin; Z88.1 Allergy status to other antibiotic agents
CPT/HCPCS: 93005; 85025; 81001; 36415; 83690; 80053; 74177; 96374; 99284; Q9967; J2405

== ENCOUNTER 2023-08-20 06:58 | Day surgery (SDC) | payer OTHER ==
--- NOTE | 2023-08-19 16:30 | RAD REPORT ---
EXAM DESCRIPTION: RAD - Chest Pa And Lat (2 Views) - 08/19/2023 4:21 pm CLINICAL HISTORY: pre op diagnostic lap, lap anastasia Chest pain. COMPARISON: Abdomen 1 View (KUB) dated 08/25/2018; Chest Single View dated 12/28/2015; Chest Single Vi ew dated 10/24/2015; ABDOMEN 1 VIEW KUB dated 01/06/2012 FINDINGS: The lungs are clear. The heart is normal in size. No displaced fractures. IMPRESSION: No acute or concerning finding suspected. The USPSTF recommends annual screening for lung cancer with low-dose CT (LDCT) in adults aged 50 to 80 years who have a 20 pack-year smoking history and currently smoke or have quit within the past 15 years.
[2023-08-19 16:43] LABS: Absolute Eosinophils 0.1 K/uL (0-0.5); Absolute Lymphocytes (CBC) 1.6 K/uL (0.7-4.9); Absolute Monocytes 0.3 K/uL (0.1-1.3); Absolute Neutrophil 1.9 K/uL (1.8-8.0); Basophils % 1.1 % (0-1.3); Eosinophils % 1.8 % (0-4.4); Hematocrit 34.3 % (36.0-45.0); Hemoglobin 11.9 g/dL (12.0-15.0); Lymphocytes % 39.4 % (15.3-44.8); MCH 31.5 pg (27.0-35.0); MCHC 34.8 g/dL (32.0-36.0); MCV 90.6 fL (80-100); MPV 7.9 fL (7.6-11.3); Monocytes % 8.2 % (3.3-12.3); Neutrophils % 49.5 % (41.7-73.7); Nucleated Red Blood Cells % 0.1 % (0-0); Platelets 245 thou/uL (152-406); RBC Red Blood Cell Count 3.78 M/uL (3.86-4.86); Red Cell Distribution Width 12.6 % (12.1-15.2)
[2023-08-19 16:47] LABS: Albumin 3.8 g/dL (3.4-5.0); Anion Gap 8.1 mEq/L (5.0-15.0); Bilirubin Direct 0.1 mg/dL (0-0.2); Bilirubin Indirect, Calculated 0.2 mg/dL (0.2-0.8); Bilirubin Total 0.3 mg/dL (0.2-1.0); Globulin 3.9 g/dL (2.3-3.5); Potassium 4.1 mEq/L (3.5-5.1); Protein, Total 7.7 g/dL (6.4-8.2)
[2023-08-20] MEDS: Ringers Lactate 1,000 ML IV ONE (07:10)
[2023-08-20 07:37] VITALS: O2SAT 100
[2023-08-20] MEDS ORDERED: propofoL 200 MG/20 ML VIAL IV ONE ×2 (07:40→07:44)
[2023-08-20] MEDS ORDERED: ROCURONIUM 50 MG/5 ML VIAL IV ONE ×2 (07:40→07:44)
[2023-08-20] MEDS ORDERED: LIDOCAINE 1% MPF 30 ML VIAL ONE (07:40)
[2023-08-20] MEDS ORDERED: GLYCOPYRROLATE 0.2 MG/ML SYR ONE ×2 (07:40→08:52)
[2023-08-20] MEDS ORDERED: LIDOCAINE 2% MPF 5 ML VIAL ONE (07:44)
[2023-08-20] MEDS: CIPROFLOXACIN 400mg IV 400 MG/200 ML BAG IV ONE (07:44)
[2023-08-20] MEDS ORDERED: ONDANSETRON 4 MG/2 ML VIAL ONE ×2 (07:44→10:06)
[2023-08-20] MEDS ORDERED: FENTANYL CITR 100 MCG/2 ML ONE ×2 (07:45→08:26)
[2023-08-20] MEDS ORDERED: EPHEDRINE SULF 50 MG/ML VIAL ONE (07:53)
[2023-08-20] MEDS ORDERED: dexAMETHasone 10 MG/ML VIAL ONE (08:26)
[2023-08-20] MEDS ORDERED: NEOSTIGMINE 1 MG/ML -10 ML VIAL ONE (08:52)
[2023-08-20] MEDS ORDERED: KETOROLAC 30 MG/ML INJ ONE (08:53)
--- NOTE | 2023-08-20 09:22 | P.BOP ---
Preoperative diagnosis: RUQ abd pain, biliary dyskinesia Postoperative diagnosis: same plus peritoneal hyperpigmentated lesions, cholecy stitis Primary procedure: 1. Laparoscopic cholecystectomy, 2. Diagnostic laparoscopy, Secondary procedure: 3. Laparoscopic biopsy of peritoneal lesions Estimated blood loss: <10cc Specimen: GB, peritoneal lesions Findings: as above Anesthesia: General Complications: None Transferred to: Recovery Room Condition: Good
[2023-08-20 10:00] VITALS: TEMP 97
[2023-08-20] MEDS: HYDROCODONE/APAP 7.5/325 MG TAB ONE (10:40)
[2023-08-20 10:55] VITALS: BP 120/60
--- NOTE | 2023-08-20 20:13 | OP ---
Date of Procedure: 08/20/2023 Surgeon: Tad Guzman MD Preoperative Diagnoses: Intractable right upper quadrant abdominal pain, epigastric pain, biliary dy skinesia. Postoperative Diagnoses: Intractable right upper quadrant abdominal pain, epigastric pain, biliary d yskinesia, peritoneal hyperreactivity pigmented small lesions, cannot rule out endometriosis. Procedures: Diagnostic laparoscopy, laparoscopic cholecystectomy, laparoscopic biopsy of peritoneal lesions. Estimated Blood Loss: Less than 10 mL. Specimens: Gallbladder and peritoneal lesions. Findings: The patient has distended gallbladder with multiple adhesions of omentum to the gallbladde r itself consistent with also an evidence of cholecystitis. Indications: This is the case of a 58-year-old patient, who comes to us with abdominal pain. She liz s been through a lot including multiple endo's, GI evaluations, primary doctors, imaging, followed by us, the last time we have an imaging that shows an ejection fraction of about 70% with duplication o f symptoms. We will be trying to manage her diet looking for any other cause of pain and the pain co ntinue. To the point that we discussed with her the option of diagnostic laparoscopy, at the same ti me, we noticed that most of the symptoms are related to the epigastric, right upper quadrant area, po stprandial, we cannot rule out the gallbladder and see dyskinesia as the cause of this. She also wan ts the cholecystectomy done at the same time. At the same time, she has some lower abdominal pain. She has history of endometriosis, so she asked me to also take a look at that area to see if there is any possibility of it, so the benefits, alternatives, and risks of this procedures fully explained t o the patient which include, but not limited to infection, bleeding, damage to adjacent structures, a nesthesia complication, choledocholithiasis, bile leak, pancreatitis, AR, and even . She also u nderstands this may not relieve any symptoms. She might need more than one surgical intervention. S he also understands this is a partially diagnostic procedure at least in the lower abdomen. We may n ot be able to find the cause of the pain in that region. She understood. She is aware of that. She came also with the to the office. We will once again discuss with the options and they are very certain on the procedure today was diagnostic lap, laparoscopic possible open cholecystectomy, a nd any other indicated procedures. The benefits, alternatives, and risks once again fully explained. Description Of Procedure: The patient was brought to the operating room, placed in supine position, anesthesia was done without complication. A time-out was called. Abdomen was prepped and draped in a sterile fashion. Local anesthesia was applied in the infraumbilical region. The patient has histo ry of marcin dixon, so we are trying to use the same incision she had before. Incision was carried nancy n to fascia, which was opened under direct vision. Peritoneum was encountered, opened under direct v ision. Vicryl #1 placed inside the fascia. Jono trocar was carefully introduced. Pneumoperitoneu m was obtained. After that, we paid attention first to the upper abdomen. The stomach looks soft an d compressible. Liver with no extracapsular masses at least anteriorly. Gallbladder looks distended with evidence of some gallbladder wall edema and also half of that gallbladder is adhered with oment um attached to it, looked like she has been having also cholecystitis on and off, so that will be add ressed. Then, we looked at the area of transverse, ascending, and descending colon at least extralum inal. We did not see any masses and in the small bowel, we did not see any extraluminal masses at th is moment. Then, we looked at the area of the pelvis and we noticed no hernias in that region, but w e noticed 2 small hyperpigmented lesions. See pictures on that region, so we proceeded to biopsy tho se, not sure if this is a previous scar tissue or just endometriosis. We send that to the pathologis t and let them determine that. If she does that, then she have to discuss that with the wire frame lampshade maker . Overall, I did not see any major bowel adhesions down there in the abdomen that may be causing the pain, so we directed our attention once again to the right upper abdomen. At that moment, we alread y have 3 more trocars inside the area that we placed in under direct visualization, 5 mm each one of them. At that moment, I put a grasper in the fundus of the gallbladder, another grasper in the infun dibulum, but we could not hold the infundibulum until we get the adhesions out of the area. Once we have the adhesions, we then put a grasper in the infundibulum and retract the gallbladder in the infe rolateral fashion exposing the triangle of Calot and obtaining critical view. Cystic duct and cystic artery were clearly isolated, freed circumferentially, and a connection between those and the gallbl adder were clearly identified. I proceeded to ligate those by using at least 3 clips proximal, 1 cli p distal, ligation in middle. Same was done with the cystic artery. A small little branch of the cy stic artery was also ligated. Hepatic arteries and common bile duct were protected at all times. Th e gallbladder was removed from liver using Bovie cauterizer and removed from abdominal cavity using E ndoCatch through the umbilical incision. The area was inspected once again. No bile leak. No bleed ing. At that moment, we looked at the area of the pelvis region. We have incisional biopsies and th ere was no bleeding needed. At that moment, I proceeded to remove the trocars under direct vision, d eflated pneumoperitoneum, closed the fascia with #1 Vicryl, irrigated subcutaneous tissue, closed wit h 3-0 chromic and skin in a subcuticular fashion with Steri-Strips on top. Sponge counts and instrum ent counts correct. The patient tolerated the procedure well. The patient was sent to recovery in s table condition. MAURI/DHAVAL Voice ID: [id number] Report ID: [id number]
--- NOTE | 2023-08-20 20:17 | DS ---
Date of Discharge: 08/20/2023 Diagnoses: Right upper quadrant abdominal pain, epigastric pain, biliary dyskinesia, cholecystitis, and peritoneal hyperpigmented lesions. Condition: Stable. Disposition: Home. Activity: As tolerated. No heavy lifting. Follow up in my office in 1 week. Call for appointment at [phone]. Keep area dry for 48 hours, then may shower. Keep Steri-Strips intact. MAURI/DHAVAL Voice ID: [id number] Report ID: [id number]
--- NOTE | 2023-08-22 17:34 | EKG ---
Test Date: 2023-08-19 Test Time: 16:29:03 Veneer Cutter: MATTHEW MEASUREMENT RESULTS: Intervals: Rate: 77 MS: 154 QRSD: 74 QT: 384 QTc: 434 [place]: P: 74 MS: 154 QRS: 64 T: 64 INTERPRETIVE STATEMENTS: Normal sinus rhythm Normal ECG Compared to ECG 10/21/2022 11:47:02 No significant changes Electronically Signed On 08-22-23 17:25:08 CDT by Grey Machado
== END 2023-08-20 11:03 | disposition home or self-care (01) ==
LOC: OR 06:58
PROVIDERS: ATTEND Surgery
PROC: 0FT44ZZ Resection of Gallbladder, Percutaneous Endoscopic Approach (ICD-10-PCS; principal; 2023-08-20 08:30)
PROC: 0DBW4ZX Excision of Peritoneum, Percutaneous Endoscopic Approach, Diagnostic (ICD-10-PCS; 2023-08-20 08:30)
DX: K81.9 Cholecystitis, unspecified (principal); K82.8 Other specified diseases of gallbladder; F32.A Depression, unspecified; F41.9 Anxiety disorder, unspecified; M06.9 Rheumatoid arthritis, unspecified; Z88.0 Allergy status to penicillin; Z88.1 Allergy status to other antibiotic agents
CPT/HCPCS: 36415; 71046; 80048; 80076; 83690; 85025; 88304; 88305; 93005; J0744; J1100; J2001; J2405; J2704; J2710; J3010; J7120

== ENCOUNTER 2024-01-19 16:01 | Emergency (ER) | payer OTHER ==
[2024-01-19 16:23] LABS: Absolute Basophils 0.1 K/uL (0-0.5); Absolute Lymphocytes (CBC) 2.4 K/uL (0.7-4.9); Absolute Monocytes 0.4 K/uL (0.1-1.3); Absolute Neutrophil 4.6 K/uL (1.8-8.0); Basophils % 0.9 % (0-1.3); Eosinophils % 0.1 % (0-4.4); Hematocrit 33.2 % (36.0-45.0); Hemoglobin 11.2 g/dL (12.0-15.0); Lymphocytes % 31.8 % (15.3-44.8); MCH 31.3 pg (27.0-35.0); MCHC 33.8 g/dL (32.0-36.0); MCV 92.6 fL (80-100); MPV 7.6 fL (7.6-11.3); Monocytes % 5.5 % (3.3-12.3); Neutrophils % 61.7 % (41.7-73.7); Nucleated Red Blood Cells % 0.2 % (0-0); Platelets 228 thou/uL (152-406); RBC Red Blood Cell Count 3.58 M/uL (3.86-4.86); Red Cell Distribution Width 12.7 % (12.1-15.2)
[2024-01-19 16:42] LABS: ALT/SGPT 28 U/L (13-56); AST/SGOT 41 U/L (15-37); Albumin 3.5 g/dL (3.4-5.0); Alkaline Phosphatase 92 U/L (45-117); Anion Gap 12.2 mEq/L (5.0-15.0); BUN Blood Urea Nitrogen 13 mg/dL (7-18); Bicarbonate 24 mEq/L (21-32); Bilirubin Total 0.4 mg/dL (0.2-1.0); Globulin 3.4 g/dL (2.3-3.5); Glomerular Filtration Rate 81 ml/min (=/>90); Glucose Level 175 mg/dL (74-106); Magnesium 2.5 mg/dL (1.6-2.4); NT PRO-BNP 190 pg/mL (<125); Potassium 3.2 mEq/L (3.5-5.1); Protein, Total 6.9 g/dL (6.4-8.2); Sodium Level 135 mEq/L (136-145)
[2024-01-19 16:44] LABS: Bilirubin Direct < 0.2 mg/dL (0-0.2); Bilirubin Indirect, Calculated 0.2 mg/dL (0.2-0.8); Troponin High Sensitivity < 3.0 pg/mL (<58.9)
--- NOTE | 2024-01-19 17:26 | EDPHYS ---
Physician Documentation [facility] Name: Xiomara Russ Age: 58 yrs Sex: Female : 1965 Arrival Date: 01/19/2024 Time: 16:01 Bed 18 Private MD: ED Physician Misael Valdez HPI: 01/18 20:19 This 58 yrs old Female presents to ER via EMS with complaints of Syncope. rt 20:19 Patient presents to the ED following a syncopal event. Patient states that she had rt allergy testing today, went to [facility], had yakov, did not eat any food. The patient had acute onset of tunnel vision, sweating and then lost consciousness very briefly. She did not hit her head per 's report. Patient is currently asymptomatic, denies any chest pain. Denies other acute complaints, symptoms are moderate in severity, no other aggravating alleviating factors. Historical: - Allergies: 16:01 Bactrim; db 16:01 PENICILLINS; db - PMHx: 16:01 Cdiff; Kidney stones; Migraines; Hypothyroidism; Diverticulitis; db - PSHx: 16:01 Bladder lift; hysterectomy; Tummy tuck; db - Immunization history:: Adult Immunizations unknown. - Infectious Disease History:: Denies. - Social history:: Smoking status: Patient denies any tobacco usage or history of. - Family history:: not pertinent. ROS: 20:19 Constitutional: Negative for fever, chills, and weight loss, Cardiovascular: Negative rt for chest pain, palpitations, and edema, Respiratory: Negative for shortness of breath, cough, wheezing, and pleuritic chest pain, Skin: Negative for injury, rash, and discoloration, Psych: Negative for depression, anxiety, suicide ideation, homicidal ideation, and hallucinations, 20:19 Abdomen/GI: Positive for nausea, Negative for abdominal pain, 20:19 Neuro: Positive for syncope, Negative for headache, Exam: 20:19 Constitutional: This is a well developed, well nourished patient who is awake, alert, rt and in no acute distress. Head/Face: Normocephalic, atraumatic. Chest/axilla: Normal chest wall appearance and motion. Nontender with no deformity. No lesions are appreciated. Cardiovascular: Regular rate and rhythm with a normal S1 and S2. No gallops, murmurs, or rubs. Normal PMI, no JVD. No pulse deficits. Respiratory: Lungs have equal breath sounds bilaterally, clear to auscultation and percussion. No rales, rhonchi or wheezes noted. No increased work of breathing, no retractions or nasal flaring. Abdomen/GI: Soft, non-tender, with normal bowel sounds. No distension or tympany. No guarding or rebound. No evidence of tenderness throughout. Skin: Warm, dry with normal turgor. Normal color with no rashes, no lesions, and no evidence of cellulitis. MS/ Extremity: Pulses equal, no cyanosis. Neurovascular intact. Full, normal range of motion. Neuro: Awake and alert, GCS 15, oriented to person, place, time, and situation. Cranial nerves II-XII grossly intact. Motor strength 5/5 in all extremities. Sensory grossly intact. Cerebellar exam normal. Normal gait. 20:19 ECG was reviewed by the Attending Physician. Vital Signs: 16:01 BP 112 / 51; Pulse 74; Resp 16; Temp 98.1; Pulse Ox 100% on R/A; Weight 61.23 kg; db Height 5 ft. 2 in. ; Pain 0/10; 16:20 BP 101 / 54; Pulse 83; Resp 18; Temp 98.2; Pulse Ox 98% on R/A; kj2 17:59 BP 98 / 54; Pulse 75; Resp 24; Temp 98; Pulse Ox 100% on R/A; kj2 16:01 Body Mass Index 24.69 (61.23 kg, 157.48 cm) db 16:01 Pain Scale: Adult db MDM: 16:04 Patient medically screened. rt 20:19 Differential Diagnosis: cardiac arrhythmia, idiopathic syncope, vasovagal episode. Data rt reviewed: vital signs, nurses notes, lab test result(s), EKG. Consideration of Admission/Observation Escalation of care including admission/observation considered. Syncope most likely vasovagal in nature given characteristic of symptoms, labs are benign, EKG unremarkable. Patient asymptomatic following event. Do not suspect subarachnoid hemorrhage, dysrhythmia, patient stable for outpatient care, return precautions discussed.. I considered the following discharge prescriptions or medication management in the emergency department Medications were administered in the Emergency Department. See MAR. Independent interpretation of the following test(s) in the Emergency Department X-Ray: My interpretation is No edema seen on interpretation of x-ray images. Test considered but Not performed: CT: Do not suspect intracranial hemorrhage, CVA, CT scan of the head not indicated. Care significantly affected by the following chronic conditions: Hypothyroidism. Counseling: I had a detailed discussion with the patient and/or guardian regarding the historical points, exam findings, and any diagnostic results supporting the discharge/admit diagnosis, lab results, radiology results, the need for outpatient follow up, to return to the emergency department if symptoms worsen or persist or if there are any questions or concerns that arise at home. Response to treatment: the patient's symptoms have markedly improved after treatment. 01/18 16:05 Order name: Basic Metabolic Panel; Complete Time: 17:08 rt 01/18 16:05 Order name: CBC with Diff; Complete Time: 17:08 rt 01/18 16:05 Order name: LFT's; Complete Time: 17:08 rt 01/18 16:05 Order name: Magnesium; Complete Time: 17:08 rt 01/18 16:05 Order name: NT PRO-BNP; Complete Time: 17:08 rt 01/18 16:05 Order name: Troponin HS; Complete Time: 17:08 rt 01/18 16:05 Order name: XRAY Chest (1 view); Complete Time: 17:32 rt 01/18 16:05 Order name: Cardiac monitoring; Complete Time: 16:18 rt 01/18 16:05 Order name: EKG - Nurse/Tech; Complete Time: 16:18 rt 01/18 16:05 Order name: IV Saline Lock; Complete Time: 16:18 rt 01/18 16:05 Order name: Labs collected and sent; Complete Time: 16:18 rt 01/18 16:05 Order name: O2 Per Protocol; Complete Time: 16:18 rt 01/18 16:05 Order name: O2 Sat Monitoring; Complete Time: 16:18 rt EC:19 Rate is 78 beats/min. Rhythm is regular, Normal Sinus Rhythm with No ectopy. QRS [place] rt is Normal. MD interval is normal. QRS interval is normal. QT interval is normal. No Q waves. T waves are Normal. No ST changes noted. Interpreted by me. Administered Medications: 16:20 Not Given (EMS fluids infusing, ok by ED physician): ns 0.9% 1000 ml IV at 1 bolus Per nj1 protocol; 1000 mL bolus 17:59 Drug: Ondansetron IVP 4 mg IVP once; over 2 minutes Route: IVP; Site: right antecubital;kj2 18:00 Follow up: Response: No adverse reaction; Medication administered at discharge. kj2 18:00 Drug: Acetaminophen PO 1000 mg PO once Route: PO; kj2 18:00 Follow up: Response: No adverse reaction; Medication administered at discharge. kj2 Disposition Summary: 01/19/24 17:26 Discharge Ordered Notes: Location: Home rt Problem: new rt Symptoms: are resolved rt Condition: Stable rt Diagnosis - Vasovagal syncope rt Followup: rt - With: Private Physician - When: 2 - 3 days - Reason: Discharge Instructions: - Discharge Summary Sheet rt - Syncope rt Forms: - Medication Reconciliation Form rt - Antibiotic Education rt - Prescription Opioid Use rt - Patient Portal Instructions rt - Leadership Thank You Letter rt Prescriptions: - ondansetron 4 mg Oral Tablet,disintegrating - take 1 tablet ORAL route every 6 hours as needed for nausea; 15 tablet; rt Refills: 0, Product Selection Permitted Signatures: Dispatcher [employer] EDMS Regla Varma, RN RN db Misael Valdez MD MD rt Aubrie Alejandro RN RN kj2 Shaista Villalobos RN nj1 Corrections: (The following items were deleted from the chart) 16:06 16:06 BASIC METABOLIC PANEL+C.LAB.BRZ ordered. EDMS EDMS 16:06 16:06 CBC+H.LAB.BRZ ordered. EDMS EDMS 16:06 16:06 HEPATIC FUNCTION+C.LAB.BRZ ordered. EDMS EDMS 16:06 16:06 MAGNESIUM+C.LAB.BRZ ordered. EDMS EDMS 16:06 16:06 PROBNP+C.LAB.BRZ ordered. EDMS EDMS 16:06 16:06 Troponin High Sensitivity+C.LAB.BRZ ordered. EDMS EDMS 16:06 16:06 Chest Single View+RAD.RAD.BRZ ordered. EDMS EDMS
--- NOTE | 2024-01-19 17:26 | ER ---
Nurse's Notes [facility] Name: Xiomara Russ Age: 58 yrs Sex: Female : 1965 Arrival Date: 01/19/2024 Time: 16:01 Bed 18 Private MD: Diagnosis: Vasovagal syncope Presentation: 01/18 16:01 Chief complaint: EMS states: SYNCOPAL EPISODE WHILE EATING AT [employer]. HAD 1 db GENE. HX OF RA. BECAME PALE AND THEN FELL DID NOT HIT HEAD. PT REPORTS PT WAS NOT INITIALLY RESPONDING. AXO4 NOW UPON ARRIVAL. Coronavirus screen: Client denies travel out of the [place] in the last 14 days. At this time, the client does not indicate any symptoms associated with coronavirus-19. Ebola Screen: Patient negative for fever greater than or equal to 101.5 degrees Fahrenheit, and additional compatible Ebola Virus Disease symptoms Patient denies exposure to infectious person. Patient denies travel to an Ebola-affected area in the 21 days before illness onset. No symptoms or risks identified at this time. Initial Sepsis Screen: Does the patient meet any 2 criteria? No. Patient's initial sepsis screen is negative. Does the patient have a suspected source of infection? No. Patient's initial sepsis screen is negative. Risk Assessment: Do you want to hurt yourself or someone else? Patient reports no desire to harm self or others. Onset of symptoms was January 19, 2024. 16:01 Method Of Arrival: EMS: [facility] db 16:01 Acuity: EFFIE 2 db 16:01 Care prior to arrival: Medication(s) given: Normal saline infusion, IV initiated. 18 db GA, in the right antecubital area, Glucose check: 186. Triage Assessment: 16:01 General: Appears in no apparent distress. comfortable, Behavior is calm, cooperative. db Pain: Denies pain. Neuro: Level of Consciousness is awake, alert, obeys commands, Oriented to person, place, time, situation. Neuro: Reports a syncopal episode. Respiratory: Airway is patent Respiratory effort is even, unlabored, Respiratory pattern is regular, symmetrical. Historical: - Allergies: 16:01 Bactrim; db 16:01 PENICILLINS; db - PMHx: 16:01 Cdiff; Kidney stones; Migraines; Hypothyroidism; Diverticulitis; db - PSHx: 16:01 Bladder lift; hysterectomy; Tummy tuck; db - Immunization history:: Adult Immunizations unknown. - Infectious Disease History:: Denies. - Social history:: Smoking status: Patient denies any tobacco usage or history of. - Family history:: not pertinent. Screenin:17 [facility] ED Fall Risk Assessment (Adult) History of falling in the last 3 months, kj2 including since admission No falls in past 3 months (0 pts) Confusion or Disorientation No (0 pts) Intoxicated or Sedated No (0 pts) Impaired Gait No (0 pts) Mobility Assist Device Used No (0 pt) Altered Elimination No (0 pt) Score/Fall Risk Level 0 - 2 = Low Risk Maintained a safe environment, Educated pt \T\ family on fall prevention, incl call for assistance when getting out of bed, Hourly rounding (assess needs \T\ fall precautionary measures) done. Abuse screen: Denies threats or abuse. Denies injuries from another. Nutritional screening: No deficits noted. Nutritional screening: No deficits noted. Tuberculosis screening: No symptoms or risk factors identified. Assessment: 16:16 General: Appears in no apparent distress. Behavior is calm, cooperative. Pain: Denies kj2 pain. Neuro: Level of Consciousness is awake, alert. Cardiovascular: Patient's skin is warm and dry. Rhythm is. 16:23 Reassessment: Patient appears in no apparent distress at this time. Patient and/or kj2 family updated on plan of care and expected duration. Pain level reassessed. Patient is alert, oriented x 3, equal unlabored respirations, skin warm/dry/pink. Vital Signs: 16:01 BP 112 / 51; Pulse 74; Resp 16; Temp 98.1; Pulse Ox 100% on R/A; Weight 61.23 kg; db Height 5 ft. 2 in. ; Pain 0/10; 16:20 BP 101 / 54; Pulse 83; Resp 18; Temp 98.2; Pulse Ox 98% on R/A; kj2 17:59 BP 98 / 54; Pulse 75; Resp 24; Temp 98; Pulse Ox 100% on R/A; kj2 16:01 Body Mass Index 24.69 (61.23 kg, 157.48 cm) db 16:01 Pain Scale: Adult db ED Course: 16:01 Arm band placed on Patient placed in an exam room. db 16:04 Patient arrived in ED. rt 16:05 Misael Valdez MD is Attending Physician. rt 16:09 Triage completed. db 16:10 IV is patent, is intact, with fluids infusing freely, with good blood return. nj1 16:11 Maintain EMS IV. Dressing intact. Good blood return noted. Site clean \T\ dry. Gauge \T\ db site: 18 G LAC. 16:16 Aubrie Alejandro, RN is Primary Nurse. kj2 16:17 No provider procedures requiring assistance completed. kj2 16:18 Patient has correct armband on for positive identification. Bed in low position. Call kj2 light in reach. Provided Education on: call light, fall precautions. 16:21 Client placed on continuous cardiac and pulse oximetry monitoring. NIBP monitoring nj1 applied. business project manager on. 16:21 EKG done, by ED staff, reviewed by Misael Valdez MD. nj1 17:23 XRAY Chest (1 view) In Process Unspecified. EDMS 18:01 IV discontinued, intact, bleeding controlled, No redness/swelling at site. Pressure kj2 dressing applied. Administered Medications: 16:20 Not Given (EMS fluids infusing, ok by ED physician): ns 0.9% 1000 ml IV at 1 bolus Per nj1 protocol; 1000 mL bolus 17:59 Drug: Ondansetron IVP 4 mg IVP once; over 2 minutes Route: IVP; Site: right antecubital;kj2 18:00 Follow up: Response: No adverse reaction; Medication administered at discharge. kj2 18:00 Drug: Acetaminophen PO 1000 mg PO once Route: PO; kj2 18:00 Follow up: Response: No adverse reaction; Medication administered at discharge. kj2 Medication: 16:19 VIS not applicable for this client. kj2 Outcome: 17:26 Discharge ordered by . rt 18:00 Discharged to home ambulatory, with family, kj2 18:00 Condition: stable 18:00 Discharge instructions given to patient, family, Instructed on discharge instructions, follow up and referral plans. Demonstrated understanding of instructions, follow-up care, medications, 18:01 Patient left the ED. kj2 Signatures: Dispatcher [employer] EDMS Regla Varma RN RN Misael Simon MD MD rt Shaista Villalobos RN RN nj1 Javon, Aubrie, RN RN kj2
--- NOTE | 2024-01-19 17:30 | RAD REPORT ---
EXAM DESCRIPTION: Carolee Single View01/19/2024 5:22 pm CLINICAL HISTORY: Syncope COMPARISON: August 2023 FINDINGS: The lungs appear clear of acute infiltrate. The heart is normal size IMPRESSION: No acute abnormalities displayed
[2024-01-19] MEDS ORDERED: ONDANSETRON 4 MG/2 ML VIAL ONE (17:47)
[2024-01-19] MEDS ORDERED: ACETAMINOPHEN 500 MG TAB ONE (17:47)
[2024-01-19 18:16] VITALS: BP 98/54; TEMP 98; O2SAT 100
--- NOTE | 2024-01-21 16:31 | EKG ---
Test Date: 2024-01-19 Test Time: 16:13:42 Tone Regulator: ZEE MEASUREMENT RESULTS: Intervals: Rate: 78 MA: 162 QRSD: 64 QT: 380 QTc: 433 [place]: P: 56 MA: 162 QRS: 48 T: 55 INTERPRETIVE STATEMENTS: Normal sinus rhythm Low voltage QRS Borderline ECG Compared to ECG 08/19/2023 16:29:03 Low QRS voltage now present Electronically Signed On 01-21-24 16:30:06 CDT by Grey Machado
== END 2024-01-19 18:01 | disposition home or self-care (01) ==
LOC: ER 16:01
DX: R55 Syncope and collapse (principal)
CPT/HCPCS: 93005; 85025; 80048; 36415; 83735; 80076; 84484; 83880; 71045; 96374; 99285; J2405

== ENCOUNTER 2024-04-14 12:00 | Emergency (ER) | payer OTHER ==
[2024-04-14 12:52] LABS: Absolute Lymphocytes (CBC) 1.5 K/uL (0.7-4.9); Absolute Monocytes 0.3 K/uL (0.1-1.3); Absolute Neutrophil 1.9 K/uL (1.8-8.0); Basophils % 1.1 % (0-1.3); Eosinophils % 0.9 % (0-4.4); Hematocrit 34.7 % (36.0-45.0); Hemoglobin 11.8 g/dL (12.0-15.0); Lymphocytes % 40.5 % (15.3-44.8); MCH 30.8 pg (27.0-35.0); MCHC 33.9 g/dL (32.0-36.0); MCV 90.9 fL (80-100); MPV 7.8 fL (7.6-11.3); Monocytes % 6.9 % (3.3-12.3); Neutrophils % 50.6 % (41.7-73.7); Platelets 212 thou/uL (152-406); RBC Red Blood Cell Count 3.81 M/uL (3.86-4.86); Red Cell Distribution Width 12.2 % (12.1-15.2)
[2024-04-14 13:07] LABS: Specific Gravity 1.013 (1.005-1.030); Sqamous Epithelial <5 /HPF (None Seen); Transitional Epithelial <5 /HPF (None Seen); Urine Bacteria None Seen /HPF (<20); Urine Bilirubin NEGATIVE (Negative); Urine Blood 2+ (Negative); Urine Clarity Clear (Clear); Urine Color Light-Yellow (Yellow); Urine Culture Reflex Order NOT NEEDED; Urine Glucose NEGATIVE (Negative); Urine Ketones NEGATIVE (Negative); Urine Microscopic Reflex YN ORDER UMIC; Urine Nitrite NEGATIVE (Negative); Urine Protein NEGATIVE (Negative); Urine Urobilinogen Normal (Normal); Urine WBC <5 /HPF (<5)
[2024-04-14 13:14] LABS: Albumin 4.1 g/dL (3.4-5.0); Albumin/Globulin Ratio 1.1 (1.1-1.8); Anion Gap 9.8 mEq/L (5.0-15.0); Bilirubin Total 0.6 mg/dL (0.2-1.0); Globulin 3.6 g/dL (2.3-3.5); Potassium 3.8 mEq/L (3.5-5.1); Protein, Total 7.7 g/dL (6.4-8.2)
--- NOTE | 2024-04-14 14:33 | RAD REPORT ---
EXAMINATION: CT Abdomen Pelvis W Contrast CLINICAL INDICATION: Female, 59 years old. ABD PAIN TECHNIQUE: CT abdomen and pelvis was performed, after the administration of IV contrast, as per [facility] protocol. Axial, sagittal and coronal reconstructions were obtained. One or more of the following dose reduction techniques were used: Automated exposure control, adjustment of the mA and k V according to patient size, and iterative reconstruction. Unless otherwise specified, incidental findings do not require dedicated imaging follow-up. COMPARISON: 10/21/2022 FINDINGS: LOWER CHEST: The visualized lung bases are clear. LIVER: Normal in size and contour. Multiple fluid density lesions, overall stable, largest is in the central right lobe measuring 11 mm. These are most suggestive of small cysts although not well characterized. No suspicious focal lesion. BILIARY SYSTEM: Status post cholecystectomy. SPLEEN: Normal size. No focal lesion. PANCREAS: No mass, ductal dilation, or bk-pancreatic fluid. ADRENALS: Normal; no mass. KIDNEYS: Normal size and contour. No hydronephrosis. URINARY BLADDER: Unremarkable. GASTROINTESTINAL TRACT: Mild adventitial fat stranding throughout the colon. No evidence of free air, significant intra-abdominal free fluid, bowel obstruction or abscess. APPENDIX: Appendix not visualized, but no inflammatory changes in region of appendix. LYMPH NODES: No lymphadenopathy. MUSCULOSKELETAL: No acute or suspicious osseous abnormality. ADDITIONAL FINDINGS: Status post hysterectomy. IMPRESSION: Mild adventitial fat stranding throughout the colon, suggesting mild colitis. No other acute or concerning abnormalities seen in the abdomen or pelvis. Other incidental findings as above.
--- NOTE | 2024-04-14 14:37 | EDPHYS ---
Physician Documentation [facility] Name: Xiomara Russ Age: 59 yrs Sex: Female : 1965 Arrival Date: 04/14/2024 Time: 12:00 Bed 8 Private MD: ED Physician Prema Zavala HPI: 04/14 12:37 This 59 yrs old Female presents to ER via Ambulatory with complaints of sp3 Abdominal Pain. 12:37 59-year-old female with history of IBS, prior diverticulitis, kidney stones, rheumatoid sp3 arthritis, multiple endoscopy and colonoscopies, status post cholecystectomy presents to the ED with recurrent abdominal pain. Her GI physician has prescribed amitriptyline which she has not started. She wants to make sure there is "nothing else going on" before she starts it. Denies any fever, chest pain, vomiting, diarrhea or any other signs or symptoms on ROS this time.. Historical: - Allergies: 12:11 Bactrim; cm10 12:11 PENICILLINS; cm10 - PMHx: 12:11 Cdiff; Diverticulitis; Hypothyroidism; Kidney stones; Migraines; Rheumatoid arthritis; cm10 Irritable bowel syndrome; - PSHx: 12:11 hysterectomy; Bladder lift; Tummy tuck; Total abdominal hysterectomy; Cholecystectomy; cm10 - Immunization history:: Adult Immunizations up to date. - Infectious Disease History:: Denies. - Social history:: Smoking status: Patient denies any tobacco usage or history of. ROS: 12:37 Constitutional: Negative for fever, chills, and weight loss, Eyes: Negative for injury, sp3 pain, redness, and discharge, ENT: Negative for injury, pain, and discharge, Neck: Negative for injury, pain, and swelling, Cardiovascular: Negative for chest pain, palpitations, and edema, Respiratory: Negative for shortness of breath, cough, wheezing, and pleuritic chest pain, Back: Negative for injury and pain, : Negative for injury, bleeding, discharge, and swelling, MS/Extremity: Negative for injury and deformity, Skin: Negative for injury, rash, and discoloration, Neuro: Negative for headache, weakness, numbness, tingling, and seizure, Psych: Negative for depression, anxiety, suicide ideation, homicidal ideation, and hallucinations, Allergy/Immunology: Negative for hives, rash, and allergies, Endocrine: Negative for neck swelling, polydipsia, polyuria, polyphagia, and marked weight changes, Hematologic/Lymphatic: Negative for swollen nodes, abnormal bleeding, and unusual bruising, 12:37 All other systems are negative, Exam: 12:38 Constitutional: This is a well developed, well nourished patient who is awake, alert, sp3 and in no acute distress. Head/Face: Normocephalic, atraumatic. Eyes: Pupils equal round and reactive to light, extra-ocular motions intact. Lids and lashes normal. Conjunctiva and sclera are non-icteric and not injected. Cornea within normal limits. Periorbital areas with no swelling, redness, or edema. Neck: Trachea midline, no thyromegaly or masses palpated, and no cervical lymphadenopathy. Supple, full range of motion without nuchal rigidity, or vertebral point tenderness. No Meningismus. Chest/axilla: Normal chest wall appearance and motion. Nontender with no deformity. No lesions are appreciated. Cardiovascular: Regular rate and rhythm with a normal S1 and S2. No gallops, murmurs, or rubs. Normal PMI, no JVD. No pulse deficits. Respiratory: Lungs have equal breath sounds bilaterally, clear to auscultation and percussion. No rales, rhonchi or wheezes noted. No increased work of breathing, no retractions or nasal flaring. Back: No spinal tenderness. No costovertebral tenderness. Full range of motion. Skin: Warm, dry with normal turgor. Normal color with no rashes, no lesions, and no evidence of cellulitis. MS/ Extremity: Pulses equal, no cyanosis. Neurovascular intact. Full, normal range of motion. Neuro: Awake and alert, GCS 15, oriented to person, place, time, and situation. Cranial nerves II-XII grossly intact. Motor strength 5/5 in all extremities. Sensory grossly intact. Cerebellar exam normal. Normal gait. Psych: Awake, alert, with orientation to person, place and time. Behavior, mood, and affect are within normal limits. 12:38 Abdomen/GI: Mild pain to lower abdomen without peritoneal signs, rebound or guarding., Vital Signs: 12:12 BP 118 / 42; Pulse 92; Resp 18; Temp 97.7(TE); Pulse Ox 97% on R/A; Weight 61.23 kg; cm10 Height 5 ft. 2 in. ; Pain 8/10; 13:27 BP 105 / 53; Pulse 83; Resp 18; Pulse Ox 98% on R/A; ph 14:32 BP 116 / 55; Pulse 95; Resp 18; Pulse Ox 100% on R/A; ph 12:12 Body Mass Index 24.69 (61.23 kg, 157.48 cm) cm10 12:12 Pain Scale: Adult cm10 MDM: 12:04 Medical Screening Exam initiated sp3 12:38 Data reviewed: vital signs, nurses notes, old medical records, lab test result(s), sp3 radiologic studies. ED course: 59-year-old female with chronic abdominal pain and PMH above. Differential diagnosis includes IBS versus some other intra-abdominal pathology versus UTI versus kidney stone. Workup will include CT scan of the abdomen pelvis, labs and UA. Have advised patient that if workup is negative she started amitriptyline.. 14:35 ED course: Mild colitis on CT. Labs normal. Vital signs normal. Will treat with oral sp3 antibiotics and follow-up with GI.. 04/14 12:35 Order name: CBC with Diff; Complete Time: 13:27 sp3 04/14 12:35 Order name: CMP; Complete Time: 13:27 sp3 04/14 12:35 Order name: Lipase; Complete Time: 13:27 sp3 04/14 12:35 Order name: Urinalysis w/ reflexes; Complete Time: 13:27 sp3 04/14 12:35 Order name: CT Abd/Pelvis - IV Contrast Only; Complete Time: 14:35 sp3 04/14 12:35 Order name: IV Saline Lock; Complete Time: 12:45 sp3 04/14 12:35 Order name: Labs collected and sent; Complete Time: 12:45 sp3 Administered Medications: No medications were administered Disposition Summary: 04/14/24 14:36 Discharge Ordered Notes: Location: Home sp3 Condition: Stable sp3 Diagnosis - Abdominal pain, colitis sp3 Followup: sp3 - With: Private Physician - When: Upon discharge from the Emergency Department - Reason: Continuance of care Discharge Instructions: - Discharge Summary Sheet sp3 - Colitis sp3 Forms: - Medication Reconciliation Form sp3 - Antibiotic Education sp3 - Prescription Opioid Use sp3 - Patient Portal Instructions sp3 - Leadership Thank You Letter sp3 Prescriptions: - Cipro 500 mg Oral Tablet - take 1 tablet ORAL route every 12 hours for 10 days; 20 tablet; Refills: 0, sp3 Product Selection Permitted - Flagyl 500 mg Oral Tablet - take 1 tablet ORAL route every 8 hours for 10 days; 30 tablet; Refills: 0, sp3 Product Selection Permitted Signatures: Dispatcher [employer] EDPrema Fragoso MD MD sp3 Zuleyka Guzman RN RN cm10 Corrections: (The following items were deleted from the chart) 12:35 12:35 Abdomen Pelvis W Con+CT.RAD.BRZ ordered. EDMS EDMS
--- NOTE | 2024-04-14 14:37 | ER ---
Nurse's Notes [facility] Name: Xiomara Russ Age: 59 yrs Sex: Female : 1965 Arrival Date: 04/14/2024 Time: 12:00 Bed 8 Private MD: Diagnosis: Abdominal pain, colitis Presentation: 04/14 12:12 Chief complaint: Patient states: Lower abdominal cramping onset 1 week ago. Pt reports cm10 nausea. No Vomiting or diarrhea. Coronavirus screen: Client denies travel out of the [place] in the last 14 days. Ebola Screen: Patient denies travel to an Ebola-affected area in the 21 days before illness onset. No symptoms or risks identified at this time. Initial Sepsis Screen: Does the patient meet any 2 criteria? HR > 90 bpm. Does the patient have a suspected source of infection? No. Patient's initial sepsis screen is negative. Risk Assessment: Do you want to hurt yourself or someone else? Patient reports no desire to harm self or others. Onset of symptoms was April 07, 2024. 12:12 Method Of Arrival: Ambulatory cm10 12:12 Acuity: EFFIE 3 cm10 Triage Assessment: 12:14 General: Appears in no apparent distress. uncomfortable, Behavior is calm, cooperative, cm10 appropriate for age. Pain: Complains of pain in abdomen Pain does not radiate. Pain currently is 8 out of 10 on a pain scale. Quality of pain is described as crampy, Pain began 1 week ago Is intermittent. Neuro: No deficits noted. Level of Consciousness is awake, alert, obeys commands, Oriented to person, place, time, situation, Appropriate for age. Respiratory: No deficits noted. Airway is patent Respiratory effort is even, unlabored, Respiratory pattern is regular, symmetrical. GI: No deficits noted. Reports lower abdominal pain, upper abdominal pain, cramping. Historical: - Allergies: 12:11 Bactrim; cm10 12:11 PENICILLINS; cm10 - PMHx: 12:11 Cdiff; Diverticulitis; Hypothyroidism; Kidney stones; Migraines; Rheumatoid arthritis; cm10 Irritable bowel syndrome; - PSHx: 12:11 hysterectomy; Bladder lift; Tummy tuck; Total abdominal hysterectomy; Cholecystectomy; cm10 - Immunization history:: Adult Immunizations up to date. - Infectious Disease History:: Denies. - Social history:: Smoking status: Patient denies any tobacco usage or history of. Screenin:15 [facility] ED Fall Risk Assessment (Adult) History of falling in the last 3 months, bp including since admission No falls in past 3 months (0 pts) Confusion or Disorientation No (0 pts) Intoxicated or Sedated No (0 pts) Impaired Gait No (0 pts) Mobility Assist Device Used No (0 pt) Altered Elimination No (0 pt) Score/Fall Risk Level 0 - 2 = Low Risk. Abuse screen: Denies threats or abuse. Denies injuries from another. Nutritional screening: No deficits noted. Tuberculosis screening: No symptoms or risk factors identified. Assessment: 12:52 Reassessment: No changes from previously documented assessment. Patient and/or family ll1 updated on plan of care and expected duration. Pain level reassessed. Patient is alert, oriented x 3, equal unlabored respirations, skin warm/dry/pink. 13:27 Reassessment: Patient appears in no apparent distress at this time. Patient and/or ph family updated on plan of care and expected duration. Pain level reassessed. Patient is alert, oriented x 3, equal unlabored respirations, skin warm/dry/pink. Vital Signs: 12:12 BP 118 / 42; Pulse 92; Resp 18; Temp 97.7(TE); Pulse Ox 97% on R/A; Weight 61.23 kg; cm10 Height 5 ft. 2 in. ; Pain 8/10; 13:27 BP 105 / 53; Pulse 83; Resp 18; Pulse Ox 98% on R/A; ph 14:32 BP 116 / 55; Pulse 95; Resp 18; Pulse Ox 100% on R/A; ph 12:12 Body Mass Index 24.69 (61.23 kg, 157.48 cm) cm10 12:12 Pain Scale: Adult cm10 ED Course: 12:02 Patient arrived in ED. im 12:02 Prema Zavala MD is Attending Physician. sp3 12:04 Payam Fierro, RANJANA is Primary Nurse. bp 12:13 Triage completed. cm10 12:14 Arm band placed on Patient placed in an exam room, on a stretcher. cm10 12:15 Patient has correct armband on for positive identification. bp 12:46 Inserted saline lock: 22 gauge in right antecubital area, using aseptic technique. ll1 Blood collected. Flushed with 10 mL NS. 12:52 Urinalysis w/ reflexes Sent. ll1 12:58 CT Abd/Pelvis - IV Contrast Only In Process Unspecified. EDMS 14:42 No provider procedures requiring assistance completed. IV discontinued, intact, bp bleeding controlled, No redness/swelling at site. Pressure dressing applied. Administered Medications: No medications were administered Medication: 14:43 VIS not applicable for this client. bp Outcome: 14:36 Discharge ordered by . sp3 14:42 Discharged to home ambulatory, bp 14:42 Condition: stable 14:42 Discharge instructions given to patient, Instructed on discharge instructions, follow up and referral plans. medication usage, Demonstrated understanding of instructions, follow-up care, medications, Prescriptions given X 2, 14:43 Patient left the ED. bp Signatures: Dispatcher [employer] EDMS Edyta Romero, RN RN Payam Fierro RN RN Edward Hernández RN RN ll1 Prema Zavala MD MD sp3 Dot Pacheco Clarissa RN RN cm10 Corrections: (The following items were deleted from the chart) 13:04 12:15 [facility] ED Fall Risk Assessment (Adult) History of falling in the last 3 months, bp including since admission No falls in past 3 months (0 pts) Confusion or Disorientation No (0 pts) Intoxicated or Sedated No (0 pts) Impaired Gait Yes (1 pt) Mobility Assist Device Used Yes (1 pt) Altered Elimination No (0 pt) Score/Fall Risk Level 3 or more points = High Risk Oriented to surroundings, bp 13:04 12:15 Abuse screen: Denies threats or abuse. Denies injuries from another. bp bp 13:04 12:15 Nutritional screening: No deficits noted. bp bp 13:04 12:15 Tuberculosis screening: No symptoms or risk factors identified. bp bp
[2024-04-14 14:53] VITALS: TEMP 97.7
[2024-04-14 15:09] VITALS: BP 116/55; O2SAT 100
== END 2024-04-14 14:43 | disposition home or self-care (01) ==
LOC: ER 12:00
DX: K52.9 Noninfective gastroenteritis and colitis, unspecified (principal)
CPT/HCPCS: 85025; 81001; 36415; 83690; 80053; 74177; Q9967